=== PATIENT | male | born 1950 | race Caucasian/White ===

== ENCOUNTER 2017-11-13 11:26 | Emergency (ER) | payer MEDICAID, MEDICARE | END 2017-11-13 12:18 | disposition left against medical advice (07) | LOC: JD.ED 11:26 → SUPCPDRO 11:26 → JD.ED 12:18 | DX: Z53.21 Procedure and treatment not carried out due to patient leaving prior to being seen by health care provider (principal) ==

== ENCOUNTER 2018-02-28 09:56 | Inpatient (IN) | payer MEDICAID ==
[2018-02-28] MEDS ORDERED: Sodium Chloride 0.9% 10 ML Syringe FLUSH PRN (10:25)
[2018-02-28] MEDS ORDERED: cefTRIAXone 2 GM in Sodium Chloride 0.9% 100 ML IV ONE (10:26)
--- NOTE | 2018-02-28 11:21 | EDM.PDOC ---
ED HPI GENERAL MEDICAL PROBLEM - General Chief Complaint: Respiratory Problem Stated Complaint: [facility] Time Seen by Provider: 02/28/18 10:22 Source of Information: Reports: Patient History Limitations: Reports: No Limitations - History of Present Illness INITIAL COMMENTS - FREE TEXT/NARRATIVE: The patient presents by [facility] from [facility] in [place] for shortness of breath, cough, low BP and low oxygen saturations. He is on opiods for pain and he says he may have had an issue with it. He says when his sugars are off he is more sensitive to the meds. He said he also had blurred vision. He was given narcan by [place] on the way in. His vision cleared up and he is more responsive. He knows who he is and where he is. He has a cough and rattly lung sounds. He denies fever or chills. He has no headache, chest pain, abdominal pain, nausea or vomiting. Onset: Today Duration: Hour(s): Severity: Moderate Improves with: Reports: None Worsens with: Reports: None Associated Symptoms: Reports: Cough, Shortness of Breath. Denies: Chest Pain, Fever/Chills, Headaches, Nausea/Vomiting - Related Data Allergies Allergy/AdvReac Type Severity Reaction Status Date / Time navane Allergy Excitabilit Uncoded 02/28/18 10:32 y Home Meds: Home Meds Acetaminophen [Tylenol] 650 mg PO Q4H PRN 02/28/18 [History] Albuterol Sulfate 1 applic INH Q6H PRN 02/28/18 [History] Albuterol Sulfate [Proair Respiclick] 2 puff INH Q4H PRN 02/28/18 [History] Aspirin [Halfprin] 81 mg PO DAILY 02/28/18 [History] Carboxymethylcellulose/Lytes [Christiano-Stir Oral [place]] 1 spray INH Q4H PRN 02/28/18 [History] Citalopram Hydrobromide [Celexa] 20 mg PO BEDTIME 02/28/18 [History] Clopidogrel [Plavix] 75 mg PO DAILY 02/28/18 [History] DULoxetine [Cymbalta] 30 mg PO DAILY 02/28/18 [History] Docusate Sodium 100 mg PO BID PRN 02/28/18 [History] Exenatide Microspheres [Bydureon Pen] 2 mg INJECT TH 02/28/18 [History] Furosemide [Lasix] 40 mg PO DAILY 02/28/18 [History] Hydrocodone/Acetaminophen [Hydrocodon-Acetaminophen 5-325] 5 - 325 mg PO BID [History] Insulin Detemir [Levemir] 60 units INJECT BID 02/28/18 [History] Insulin Lispro [Humalog] 0 unit INJECT TID 02/28/18 [History] Insulin Lispro [Humalog] 12 units INJECT BEDTIME 02/28/18 [History] Insulin Lispro [Humalog] 34 units INJECT BID 02/28/18 [History] LORazepam [Ativan] 0.25 mg PO BEDTIME 02/28/18 [History] Multivitamin W/Iron, Minerals [Compete] 1 tab PO DAILY 02/28/18 [History] Nystatin 1 applic TOP BID 02/28/18 [History] Pregabalin [Lyrica] 50 mg PO TID 02/28/18 [History] QUEtiapine [SEROquel] 250 mg PO DAILY 02/28/18 [History] atorvaSTATin Calcium [Lipitor] 20 mg PO BEDTIME 02/28/18 [History] hydrOXYzine pamoate [Hydroxyzine Pamoate] 50 mg PO Q4H PRN 02/28/18 [History] metFORMIN [Glucophage XR] 1,000 mg PO BID 02/28/18 [History] ED ROS GENERAL - Review of Systems Review Of Systems: See Below Constitutional: Reports: No Symptoms HEENT: Reports: No Symptoms Respiratory: Reports: Shortness of Breath, Cough Cardiovascular: Reports: No Symptoms Endocrine: Reports: No Symptoms GI/Abdominal: Reports: No Symptoms : Reports: No Symptoms Musculoskeletal: Reports: No Symptoms ED EXAM, GENERAL - Physical Exam Exam: See Below Exam Limited By: No Limitations General Appearance: Other (Sleepy but he will awake when I talk to him and he follows commands and answers y questions) Ears: Normal External Exam Nose: Normal Inspection Head: Atraumatic, Normocephalic Neck: Normal Inspection Respiratory/Chest: No Respiratory Distress, Decreased Breath Sounds, Rhonchi Cardiovascular: Regular Rate, Rhythm, No Edema, No Murmur GI/Abdominal: Soft, Non-Tender, No Organomegaly, No Mass Rectal (Males) Exam: Normal Rectal Tone, Heme - Stool Extremities: Other (Abrasions to both knees) Neurological: Alert, Oriented, No Motor/Sensory Deficits Course - Vital Signs Last Recorded V/S: Last Vital Signs Temp 98.5 F 02/28/18 09:56 Pulse 80 02/28/18 09:56 Resp 20 02/28/18 09:56 BP 131/35 L 02/28/18 09:56 Pulse Ox 83 L 02/28/18 09:56 - Orders/Labs/Meds Orders: Active Orders 24 hr Category Date Time Status BIPAP Adult [RT BiPAP/CPAP] [RC] ASDIRECTED Care 02/28/18 12:46 Active Oxygen Therapy [RC] PRN Care 02/28/18 10:25 Active Peripheral IV Care [RC] . DIRECTED Care 02/28/18 10:26 Active Chest 1V Frontal [CR] Stat Exams 02/28/18 10:25 Taken CULTURE BLOOD [BC] Stat Lab 02/28/18 11:06 Received CULTURE BLOOD [BC] Stat Lab 02/28/18 11:14 Received PRO B-TYPE NATRIUR PEPT,BNPPRO [CHEM] Stat Lab 02/28/18 12:31 Ordered RED BLOOD CELLS LP [BBK] Stat Lab 02/28/18 11:06 Received TYPE AND SCREEN [BBK] Stat Lab 02/28/18 11:06 Received Sodium Chloride 0.9% [Saline Flush] Med 02/28/18 10:25 Active 10 ml FLUSH ASDIRECTED PRN Blood Culture x2 Reflex Set [OM.PC] Stat Oth 02/28/18 10:26 Ordered Peripheral IV Insertion Adult [OM.PC] Stat Oth 02/28/18 10:25 Ordered Transfuse Red Blood Cells [COMM] Stat Oth 02/28/18 12:01 Ordered Medication Orders Sodium Chloride (Saline Flush) 10 ml FLUSH ASDIRECTED PRN PRN Reason: Keep Vein Open Last Admin: 02/28/18 10:45 Dose: 10 ml Labs: Laboratory Tests 02/28/18 02/28/18 02/28/18 Range/Units 11:06 11:06 12:41 WBC 11.62 H (4.23-9.07) K/mm3 RBC 2.78 L (4.63-6.08) M/mm3 Hgb 7.8 L (13.7-17.5) gm/L Hct 26.7 L (40.1-51.0) % MCV 96.0 H (79.0-92.2) fl MCH 28.1 (25.7-32.2) pg MCHC 29.2 L (32.2-35.5) g/dl RDW Std Deviation 57.6 H (35.1-43.9) fL Plt Count 249 (163-337) K/mm3 MPV 10.2 (9.4-12.3) fl Neut % (Auto) 77.8 H (34.0-67.9) % Lymph % (Auto) 9.6 L (21.8-53.1) % [place] % (Auto) 10.5 (5.3-12.2) % Eos % (Auto) 1.6 (0.8-7.0) Baso % (Auto) 0.2 (0.1-1.2) % Neut # (Auto) 9.04 H (1.78-5.38) K/mm3 Lymph # (Auto) 1.11 L (1.32-3.57) K/mm3 [place] # (Auto) 1.22 H (0.30-0.82) K/mm3 Eos # (Auto) 0.19 (0.04-0.54) K/mm3 Baso # (Auto) 0.02 (0.01-0.08) K/mm3 Manual Slide Review Abnormal smear Puncture Site Rt radial ABG pH 7.34 L (7.35-7.45) ABG pCO2 57.9 H (35.0-45.0) mmHg ABG pO2 74.0 L (80.0-100.0) mmHg ABG HCO3 30.2 H (22.0-26.0) meq/L ABG O2 Saturation 89.3 L (96.0-97.0) % ABG Base Excess 4.2 H (-2-2.0) Dusty Test Positive A-a Gradient 33 mmHg O2 Delivery Device Nasal cannula Oxygen Flow Rate 2.0 FiO2 28.00 (21.00-100.00) % Sodium 138 (136-145) mEq/L Potassium 4.8 (3.5-5.1) mEq/L Chloride 103 (98-107) mEq/L Carbon Dioxide 30 (21-32) mEq/L Anion Gap 9.8 (5-15) BUN 41 H (7-18) mg/dL Creatinine 1.9 H (0.7-1.3) mg/dL Est Cr Clr Drug Dosing 26.68 mL/min Estimated GFR (MDRD) 36 (>60) mL/min BUN/Creatinine Ratio 21.6 H (14-18) Glucose 126 H (80-115) mg/dL Calcium 8.4 L (8.5-10.1) mg/dL Total Bilirubin 0.2 (0.2-1.0) mg/dL AST 18 (15-37) U/L ALT 15 L (16-63) U/L Alkaline Phosphatase 70 (46-116) U/L Total Protein 6.8 (6.4-8.2) g/dl Albumin 1.9 L (3.4-5.0) g/dl Globulin 4.9 gm/dL Albumin/Globulin Ratio 0.4 L (1-2) Meds: Medications Generic Name Dose Route Start Last Admin Trade Name Freq PRN Reason Stop Dose Admin Sodium Chloride 10 ml 02/28/18 10:25 02/28/18 10:45 Saline Flush FLUSH 10 ml ASDIRECTED PRN Administration Keep Vein Open Discontinued Medications Generic Name Dose Route Start Last Admin Trade Name Freq PRN Reason Stop Dose Admin Ceftriaxone Sodium 2 gm/ 100 mls @ 100 mls/hr 02/28/18 10:26 02/28/18 10:46 Sodium Chloride IV 02/28/18 11:25 100 mls/hr ONETIME ONE Administration Naloxone HCl 2 mg 02/28/18 12:30 Narcan IVPUSH 02/28/18 12:31 ONETIME ONE - Re-Assessments/Exams Free Text/Narrative Re-Assessment/Exam: 02/28/18 11:23 I have ordered oxygen, IV saline lock, CXR and labs. His CXR shows cardiomegaly , poor inspiration and infiltrate in the right lower lung. 02/28/18 12:17 His WBC is elevated at 11.62. His Hgb is low at 7.8. I did a rectal exam and it was negative. He has a history of anemia but this is to low. I have ordered a unit of blood. His platelets are normal. His creatinine is elevated at 1.9. His glucose is elevated at 125. 02/28/18 12:57 I feel he needs to be admitted for hypoxia, aspiration pneumonia and anemia. I talked with Dr Guadarrama and she wanted an ABG that showed a pH of 7.34. pCO2 of 57.9. pO2 of 74. I ordered BiPAP. I also ordered more narcan 2mg IV and a BNP. Departure - Departure Time of Disposition: 13:00 Disposition: Admitted As Inpatient 66 Condition: Poor Clinical Impression: Hypoxia, Hypercarbia, Renal insufficiency Aspiration pneumonia Qualifiers: Aspiration pneumonia type: unspecified Laterality: right Lung location: middle lobe of lung Qualified Code(s): J69.0 - Pneumonitis due to inhalation of food and vomit Anemia Qualifiers: Anemia type: other cause Other causes of anemia: other cause, not classified Qualified Code(s): D64.89 - Other specified anemias - Discharge Information Referrals: Josefa Moreno NP [Primary Care Provider] - Forms: ED Department Discharge - My Orders Last 24 Hours: My Active Orders 02/28/18 10:25 Oxygen Therapy [RC] PRN Chest 1V Frontal [CR] Stat Sodium Chloride 0.9% [Saline Flush] 10 ml FLUSH ASDIRECTED PRN Peripheral IV Insertion Adult [OM.PC] Stat 02/28/18 10:26 Peripheral IV Care [RC] . DIRECTED Blood Culture x2 Reflex Set [OM.PC] Stat 02/28/18 11:06 CULTURE BLOOD [BC] Stat RED BLOOD CELLS LP [BBK] Stat TYPE AND SCREEN [BBK] Stat 02/28/18 11:14 CULTURE BLOOD [BC] Stat 02/28/18 12:01 Transfuse Red Blood Cells [COMM] Stat 02/28/18 12:31 PRO B-TYPE NATRIUR PEPT,BNPPRO [CHEM] Stat 02/28/18 12:46 BIPAP Adult [RT BiPAP/CPAP] [RC] ASDIRECTED - Assessment/Plan Last 24 Hours: My Active Orders 02/28/18 10:25 Oxygen Therapy [RC] PRN Chest 1V Frontal [CR] Stat Sodium Chloride 0.9% [Saline Flush] 10 ml FLUSH ASDIRECTED PRN Peripheral IV Insertion Adult [OM.PC] Stat 02/28/18 10:26 Peripheral IV Care [RC] . DIRECTED Blood Culture x2 Reflex Set [OM.PC] Stat 02/28/18 11:06 CULTURE BLOOD [BC] Stat RED BLOOD CELLS LP [BBK] Stat TYPE AND SCREEN [BBK] Stat 02/28/18 11:14 CULTURE BLOOD [BC] Stat 02/28/18 12:01 Transfuse Red Blood Cells [COMM] Stat 02/28/18 12:31 PRO B-TYPE NATRIUR PEPT,BNPPRO [CHEM] Stat 02/28/18 12:46 BIPAP Adult [RT BiPAP/CPAP] [RC] ASDIRECTED
[2018-02-28] MEDS ORDERED: Naloxone 2 MG/2 ML Syringe IVPUSH ONE (12:30)
[2018-02-28] MEDS ORDERED: Sodium Chloride 0.9% 500 ML ONE (13:59)
[2018-02-28] MEDS ORDERED: Docusate Sodium 100 MG Cap PO PRN (17:44)
[2018-02-28] MEDS ORDERED: 50% Dextrose in Water 50 ML Syringe IVPUSH PRN (17:56)
--- NOTE | 2018-02-28 18:05 | PCM.HP ---
H&P History of Present Illness - General Date of Service: 02/28/18 Admit Problem/Dx: Admission Diagnosis/Problem Admission Diagnosis/Problem Hypoxia Source of Information: Provider History Limitations: Reports: Altered Mental Status - History of Present Illness Initial Comments - Free Text/Narative: 67 year old male who resides at [facility] presents with AMS associated with respiratory distress. He had received Narcan 2 mg in the field. ABG documented hypoxia and hypercapnia in the ED. He did not tolerated BiPAP after the additional dose of Narcan, thus he received at total of 3 mg. The circumstances of the narcotics are unknown, RN notes/medical records will be obtained. He may/may not need a substance abuse evaluation. On CXR, there appears to be a RLL infiltrate, aspiration is a strong consideration. However a resp work up will also be pursued. There is a poorly healing wound on his RLE , OM will be check via radiographic studies. He will be admitted to the ICU. Code status, DNR/DNI. Onset of Symptoms: Reports: Unknown/Unsure Symptom Onset Date: 02/28/18 Duration of Symptoms: Reports: Hour(s):, Getting Worse Location: Reports: Generalized Severity: Moderate Improves with: Reports: Medication Worsens with: Reports: Medication Associated Symptoms: Reports: Confusion, Shortness of Breath, Weakness Generalized Pain Score (Numeric/FACES): 5 - Related Data Allergies/Adverse Reactions: Allergies Allergy/AdvReac Type Severity Reaction Status Date / Time desi Allergy Excitabilit Uncoded 02/28/18 10:32 y Home Medications: Home Meds Acetaminophen [Tylenol] 650 mg PO Q4H PRN 02/28/18 [History] Albuterol Sulfate 1 applic INH Q6H PRN 02/28/18 [History] Albuterol Sulfate [Proair Respiclick] 2 puff INH Q4H PRN 02/28/18 [History] Aspirin [Halfprin] 81 mg PO DAILY 02/28/18 [History] Carboxymethylcellulose/Lytes [Christiano-Stir Oral Karval] 1 spray INH Q4H PRN 02/28/18 [History] Citalopram Hydrobromide [Celexa] 20 mg PO BEDTIME 02/28/18 [History] Clopidogrel [Plavix] 75 mg PO DAILY 02/28/18 [History] DULoxetine [Cymbalta] 30 mg PO DAILY 02/28/18 [History] Docusate Sodium 100 mg PO BID PRN 02/28/18 [History] Exenatide Microspheres [Bydureon Pen] 2 mg INJECT TH 02/28/18 [History] Furosemide [Lasix] 40 mg PO DAILY 02/28/18 [History] Hydrocodone/Acetaminophen [Hydrocodon-Acetaminophen 5-325] 5 - 325 mg PO BID [History] Insulin Detemir [Levemir] 60 units INJECT BID 02/28/18 [History] Insulin Lispro [Humalog] 0 unit INJECT TID 02/28/18 [History] Insulin Lispro [Humalog] 12 units INJECT BEDTIME 02/28/18 [History] Insulin Lispro [Humalog] 34 units INJECT BID 02/28/18 [History] LORazepam [Ativan] 0.25 mg PO BEDTIME 02/28/18 [History] Multivitamin W/Iron, Minerals [Compete] 1 tab PO DAILY 02/28/18 [History] Nystatin 1 applic TOP BID 02/28/18 [History] Pregabalin [Lyrica] 50 mg PO TID 02/28/18 [History] QUEtiapine [SEROquel] 250 mg PO DAILY 02/28/18 [History] atorvaSTATin Calcium [Lipitor] 20 mg PO BEDTIME 02/28/18 [History] hydrOXYzine pamoate [Hydroxyzine Pamoate] 50 mg PO Q4H PRN 02/28/18 [History] metFORMIN [Glucophage XR] 1,000 mg PO BID 02/28/18 [History] Past Medical History HEENT History: Reports: Impaired Vision Other HEENT History: wears eyeglasses. Dryness of nostrils. Cardiovascular History: Reports: CAD, High Cholesterol, Hypertension, Other ( See Below) Other Cardiovascular History: atherosclerotic heart disease. Unspecified peripheral edema. Respiratory History: Reports: COPD, SOB Gastrointestinal History: Reports: Chronic Constipation, GERD Genitourinary History: Reports: BPH Musculoskeletal History: Reports: Osteoarthritis, Other (See Below) Other Musculoskeletal History: diabetic open wounds. Peripheral neuropathy. Neurological History: Reports: Neuropathy, Diabetic, Neuropathy, Peripheral, TIA Other Neuro History: cerebral infarction without residual deficits. Psychiatric History: Reports: Addiction, Anxiety, Bipolar, Schizophrenia Other Psychiatric History: alcohol dependence, in remission. Cannabis dependence, in remission, nicotine dependence. Endocrine/Metabolic History: Reports: Diabetes, Type II, IDDM, Obesity/BMI 30+ Hematologic History: Reports: Anemia Dermatologic History: Reports: Other (See Below) Other Dermatologic History: diabetic ulcers. - Infectious Disease History Infectious Disease History: Reports: MRSA, Shingles Social & Family History - Tobacco Use Smoking Status *Q: Former Smoker Used Tobacco, but Quit: No - Caffeine Use Caffeine Use: Reports: None - Recreational Drug Use Recreational Drug Use: No H&P Review of Systems - Review of Systems: Review Of Systems: See Below General: Reports: Weakness HEENT: Reports: No Symptoms Pulmonary: Reports: Shortness of Breath Cardiovascular: Reports: No Symptoms Gastrointestinal: Reports: No Symptoms Genitourinary: Reports: No Symptoms Musculoskeletal: Reports: Joint Pain Skin: Reports: No Symptoms Psychiatric: Reports: Confusion Neurological: Reports: No Symptoms Hematologic/Lymphatic: Reports: No Symptoms Immunologic: Reports: No Symptoms Exam - Exam Exam: See Below - Vital Signs Vital Signs: Last Vital Signs Temp 36.6 C 02/28/18 17:54 Pulse 77 02/28/18 17:54 Resp 18 02/28/18 17:54 BP 143/71 H 02/28/18 17:54 Pulse Ox 94 L 02/28/18 17:54 Weight: 138.572 kg - Exam Quality Assessment: Supplemental Oxygen, DVT Prophylaxis General: Lethargic HEENT: EOMI, Nares Patent, Normal Nasal Septum, Pupils Equal, Pupils Reactive, PERRLA Neck: Trachea Midline Lungs: Normal Respiratory Effort, Decreased Breath Sounds, Rhonchi, Wheezing Cardiovascular: Regular Rate, Regular Rhythm, Other (distant heart sounds) GI/Abdominal Exam: Normal Bowel Sounds, Soft, Non-Tender, No Organomegaly, No Distention (Male) Exam: Deferred Rectal (Males) Exam: Deferred Back Exam: Normal Inspection Extremities: Slow Capillary Refill Skin: Warm Neurological: Cranial Nerves Intact Neuro Extensive - Motor, Sensory, Reflexes: CN II-XII Intact - Patient Data Lab Results Last 24 hrs: Laboratory Results - last 24 hr 02/28/18 02/28/18 02/28/18 Range/Units 11:06 11:06 11:06 WBC 11.62 H (4.23-9.07) K/mm3 RBC 2.78 L (4.63-6.08) M/mm3 Hgb 7.8 L (13.7-17.5) gm/L Hct 26.7 L (40.1-51.0) % MCV 96.0 H (79.0-92.2) fl MCH 28.1 (25.7-32.2) pg MCHC 29.2 L (32.2-35.5) g/dl RDW Std Deviation 57.6 H (35.1-43.9) fL Plt Count 249 (163-337) K/mm3 MPV 10.2 (9.4-12.3) fl Neut % (Auto) 77.8 H (34.0-67.9) % Lymph % (Auto) 9.6 L (21.8-53.1) % [place] % (Auto) 10.5 (5.3-12.2) % Eos % (Auto) 1.6 (0.8-7.0) Baso % (Auto) 0.2 (0.1-1.2) % Neut # (Auto) 9.04 H (1.78-5.38) K/mm3 Lymph # (Auto) 1.11 L (1.32-3.57) K/mm3 [place] # (Auto) 1.22 H (0.30-0.82) K/mm3 Eos # (Auto) 0.19 (0.04-0.54) K/mm3 Baso # (Auto) 0.02 (0.01-0.08) K/mm3 Manual Slide Review Abnormal smear Puncture Site ABG pH (7.35-7.45) ABG pCO2 (35.0-45.0) mmHg ABG pO2 (80.0-100.0) mmHg ABG HCO3 (22.0-26.0) meq/L ABG O2 Saturation (96.0-97.0) % ABG Base Excess (-2-2.0) Dusty Test A-a Gradient mmHg O2 Delivery Device Oxygen Flow Rate FiO2 (21.00-100.00) % Sodium 138 (136-145) mEq/L Potassium 4.8 (3.5-5.1) mEq/L Chloride 103 (98-107) mEq/L Carbon Dioxide 30 (21-32) mEq/L Anion Gap 9.8 (5-15) BUN 41 H (7-18) mg/dL Creatinine 1.9 H (0.7-1.3) mg/dL Est Cr Clr Drug Dosing 26.68 mL/min Estimated GFR (MDRD) 36 (>60) mL/min BUN/Creatinine Ratio 21.6 H (14-18) Glucose 126 H (80-115) mg/dL Calcium 8.4 L (8.5-10.1) mg/dL Total Bilirubin 0.2 (0.2-1.0) mg/dL AST 18 (15-37) U/L ALT 15 L (16-63) U/L Alkaline Phosphatase 70 (46-116) U/L NT-Pro-B Natriuret Pep (0-125) pg/mL Total Protein 6.8 (6.4-8.2) g/dl Albumin 1.9 L (3.4-5.0) g/dl Globulin 4.9 gm/dL Albumin/Globulin Ratio 0.4 L (1-2) Blood Type AB POSITIVE Gel Antibody Screen Negative Crossmatch See Detail 02/28/18 02/28/18 Range/Units 11:06 12:41 WBC (4.23-9.07) K/mm3 RBC (4.63-6.08) M/mm3 Hgb (13.7-17.5) gm/L Hct (40.1-51.0) % MCV (79.0-92.2) fl MCH (25.7-32.2) pg MCHC (32.2-35.5) g/dl RDW Std Deviation (35.1-43.9) fL Plt Count (163-337) K/mm3 MPV (9.4-12.3) fl Neut % (Auto) (34.0-67.9) % Lymph % (Auto) (21.8-53.1) % [place] % (Auto) (5.3-12.2) % Eos % (Auto) (0.8-7.0) Baso % (Auto) (0.1-1.2) % Neut # (Auto) (1.78-5.38) K/mm3 Lymph # (Auto) (1.32-3.57) K/mm3 [place] # (Auto) (0.30-0.82) K/mm3 Eos # (Auto) (0.04-0.54) K/mm3 Baso # (Auto) (0.01-0.08) K/mm3 Manual Slide Review Puncture Site Rt radial ABG pH 7.34 L (7.35-7.45) ABG pCO2 57.9 H (35.0-45.0) mmHg ABG pO2 74.0 L (80.0-100.0) mmHg ABG HCO3 30.2 H (22.0-26.0) meq/L ABG O2 Saturation 89.3 L (96.0-97.0) % ABG Base Excess 4.2 H (-2-2.0) Dusty Test Positive A-a Gradient 33 mmHg O2 Delivery Device Nasal cannula Oxygen Flow Rate 2.0 FiO2 28.00 (21.00-100.00) % Sodium (136-145) mEq/L Potassium (3.5-5.1) mEq/L Chloride (98-107) mEq/L Carbon Dioxide (21-32) mEq/L Anion Gap (5-15) BUN (7-18) mg/dL Creatinine (0.7-1.3) mg/dL Est Cr Clr Drug Dosing mL/min Estimated GFR (MDRD) (>60) mL/min BUN/Creatinine Ratio (14-18) Glucose (80-115) mg/dL Calcium (8.5-10.1) mg/dL Total Bilirubin (0.2-1.0) mg/dL AST (15-37) U/L ALT (16-63) U/L Alkaline Phosphatase (46-116) U/L NT-Pro-B Natriuret Pep 3133 H (0-125) pg/mL Total Protein (6.4-8.2) g/dl Albumin (3.4-5.0) g/dl Globulin gm/dL Albumin/Globulin Ratio (1-2) Blood Type Gel Antibody Screen Crossmatch Result Diagrams: 03/01/18 05:47 03/01/18 05:47 - Problem List (1) Morbid (severe) obesity due to excess calories SNOMED Code(s): 612019942 ICD Code: E66.01 - MORBID (SEVERE) OBESITY DUE TO EXCESS CALORIES Status: Chronic Current Visit: Yes (2) Diabetes mellitus SNOMED Code(s): 95981730 ICD Code: E11.9 - TYPE 2 DIABETES MELLITUS WITHOUT COMPLICATIONS Status: Chronic Current Visit: Yes (3) Narcotic overdose SNOMED Code(s): 639536507 ICD Code: T40.601A - POISONING BY UNSP NARCOTICS, ACCIDENTAL, INIT Status: Acute Current Visit: Yes (4) Anemia SNOMED Code(s): 044572557 ICD Code: D64.9 - ANEMIA, UNSPECIFIED Status: Acute Current Visit: Yes Qualifiers: Anemia type: other cause Other causes of anemia: other cause, not classified Qualified Code(s): D64.89 - Other specified anemias (5) Aspiration pneumonia SNOMED Code(s): 774638662 ICD Code: J69.0 - PNEUMONITIS DUE TO INHALATION OF FOOD AND VOMIT Status: Acute Current Visit: Yes Qualifiers: Aspiration pneumonia type: unspecified Laterality: right Lung location: middle lobe of lung Qualified Code(s): J69.0 - Pneumonitis due to inhalation of food and vomit (6) Hypercarbia SNOMED Code(s): 15486980 ICD Code: R06.89 - OTHER ABNORMALITIES OF BREATHING Status: Acute Current Visit: Yes (7) Hypoxia SNOMED Code(s): 619611104 ICD Code: R09.02 - HYPOXEMIA Status: Acute Current Visit: Yes (8) Renal insufficiency SNOMED Code(s): 799903486, 184932455 ICD Code: N28.9 - DISORDER OF KIDNEY AND URETER, UNSPECIFIED Status: Acute Current Visit: Yes Problem List Initiated/Reviewed/Updated: Yes Orders Last 24hrs: Active Orders 24 hr Category Date Time Status Patient Status [ADT] Routine ADT 02/28/18 13:58 Active Accu Check [Blood Glucose Check, Bedside] [RC] Care 02/28/18 17:56 Ordered QIDACANDBED BIPAP Adult [RT BiPAP/CPAP] [RC] ASDIRECTED Care 02/28/18 12:46 Active Oxygen Therapy [RC] PRN Care 02/28/18 10:25 Active Consult to Occupational Therapy [OT Evaluation and Cons 03/01/18 10:00 Ordered Treatment] [CONS] Routine Consult to Physical Therapy [PT Evaluation and Cons 03/01/18 09:00 Ordered Treatment] [CONS] Routine ADA Diabetic [[place] [employer] Diet] [DIET Diet 03/01/18 Breakfast Ordered ] CXR [Chest 1V Frontal] [CR] DAILY Exams 03/01/18 08:00 Ordered CXR [Chest 1V Frontal] [CR] DAILY Exams 03/02/18 08:00 Ordered CXR [Chest 1V Frontal] [CR] DAILY Exams 03/03/18 08:00 Ordered Chest 1V Frontal [CR] Stat Exams 02/28/18 10:25 Taken Forearm 2V Lt [CR] Routine Exams 02/28/18 14:49 Taken BMP [BASIC METABOLIC PANEL,BMP] [CHEM] DAILY Lab 03/01/18 05:00 Ordered BMP [BASIC METABOLIC PANEL,BMP] [CHEM] DAILY Lab 03/02/18 05:00 Ordered BMP [BASIC METABOLIC PANEL,BMP] [CHEM] DAILY Lab 03/03/18 05:00 Ordered BMP [BASIC METABOLIC PANEL,BMP] [CHEM] DAILY Lab 03/04/18 05:00 Ordered CBC W/O DIFF,HEMOGRAM [HEME] MOTH@0700 Lab 03/01/18 07:00 Ordered CBC W/O DIFF,HEMOGRAM [HEME] MOTH@0700 Lab 03/04/18 07:00 Ordered CBC W/O DIFF,HEMOGRAM [HEME] MOTH@0700 Lab 03/08/18 07:00 Ordered CBC W/O DIFF,HEMOGRAM [HEME] MOTH@0700 Lab 03/11/18 07:00 Ordered CBC W/O DIFF,HEMOGRAM [HEME] MOTH@0700 Lab 03/15/18 07:00 Ordered CBC W/O DIFF,HEMOGRAM [HEME] MOTH@0700 Lab 03/18/18 07:00 Ordered CBC WITH AUTO DIFF [HEME] DAILY Lab 03/01/18 05:00 Ordered CBC WITH AUTO DIFF [HEME] DAILY Lab 03/02/18 05:00 Ordered CBC WITH AUTO DIFF [HEME] DAILY Lab 03/03/18 05:00 Ordered CBC WITH AUTO DIFF [HEME] DAILY Lab 03/04/18 05:00 Ordered CRP [C-REACTIVE PROTEIN] [CHEM] DAILY Lab 03/01/18 05:00 Ordered CRP [C-REACTIVE PROTEIN] [CHEM] DAILY Lab 03/02/18 05:00 Ordered CRP [C-REACTIVE PROTEIN] [CHEM] DAILY Lab 03/03/18 05:00 Ordered CRP [C-REACTIVE PROTEIN] [CHEM] DAILY Lab 03/04/18 05:00 Ordered CULTURE BLOOD [BC] Stat Lab 02/28/18 11:06 Received CULTURE BLOOD [BC] Stat Lab 02/28/18 11:14 Received GLYCOSYLATED HEMOGLOBIN,HGBA1C [CHEM] Routine Lab 03/01/18 05:00 Ordered LACTIC ACID [CHEM] DAILY Lab 03/01/18 05:00 Ordered LACTIC ACID [CHEM] DAILY Lab 03/02/18 05:00 Ordered LACTIC ACID [CHEM] DAILY Lab 03/03/18 05:00 Ordered LACTIC ACID [CHEM] DAILY Lab 03/04/18 05:00 Ordered LIPID PANEL [CHEM] Routine Lab 03/01/18 05:00 Ordered MAGNESIUM [CHEM] DAILY Lab 03/01/18 05:00 Ordered MAGNESIUM [CHEM] DAILY Lab 03/02/18 05:00 Ordered MAGNESIUM [CHEM] DAILY Lab 03/03/18 05:00 Ordered MAGNESIUM [CHEM] DAILY Lab 03/04/18 05:00 Ordered MYCOPLASMA PNEUMONIAE IGM AB [CHEM] Routine Lab 03/01/18 05:00 Ordered PRO B-TYPE NATRIUR PEPT,BNPPRO [CHEM] DAILY Lab 03/01/18 05:00 Ordered PRO B-TYPE NATRIUR PEPT,BNPPRO [CHEM] DAILY Lab 03/02/18 05:00 Ordered RESPIRATORY PANEL Routine Lab 02/28/18 18:00 Ordered Acetaminophen [Tylenol] Med 02/28/18 17:44 Ordered 650 mg PO Q4H PRN Aspirin [Halfprin] Med 03/01/18 09:00 Ordered 81 mg PO DAILY Citalopram Hydrobromide [Celexa] Med 02/28/18 21:00 Ordered 20 mg PO BEDTIME Clindamycin Phosphate [Cleocin] 900 mg Med 02/28/18 18:00 Ordered Sodium Chloride 0.9% [Normal Saline] 100 ml IV Q6H Clopidogrel [Plavix] Med 03/01/18 09:00 Ordered 75 mg PO DAILY DULoxetine [Cymbalta] Med 03/01/18 09:00 Ordered 30 mg PO DAILY Dextrose 50% in Water Med 02/28/18 17:56 Ordered 50 ml IVPUSH ASDIRECTED PRN Docusate Sodium [Colace] Med 02/28/18 17:44 Ordered 100 mg PO BID PRN Heparin Sodium Med 02/28/18 18:00 Ordered 5,000 units SUBCUT Q8H Insulin Detemir Med 02/28/18 21:00 Ordered 15 units INJECT BID Insulin Lispro [HumaLOG] Med 02/28/18 22:00 Ordered See Protocol SUBCUT QIDACANDBED LORazepam [Ativan] Med 02/28/18 21:00 Ordered 0.25 mg PO BEDTIME Nystatin [Nystatin Crm] Med 02/28/18 21:00 Ordered 1 applic TOP BID Pregabalin Med 02/28/18 21:00 Ordered 50 mg PO TID QUEtiapine [SEROquel] Med 03/01/18 09:00 Ordered 250 mg PO DAILY Sodium Chloride 0.9% [Saline Flush] Med 02/28/18 10:25 Active 10 ml FLUSH ASDIRECTED PRN atorvaSTATin Calcium Med 02/28/18 21:00 Ordered 20 mg PO BEDTIME metFORMIN Med 02/28/18 21:00 Ordered 1,000 mg PO BID Blood Culture x2 Reflex Set [OM.PC] Stat Ot 02/28/18 10:26 Ordered Isolation [COMM] Routine Ot 02/28/18 17:59 Ordered Peripheral IV Insertion Adult [OM.PC] Stat Ot 02/28/18 10:25 Ordered Transfuse Red Blood Cells [COMM] Stat Ot 02/28/18 12:01 Ordered Medication Orders Acetaminophen (Tylenol) 650 mg PO Q4H PRN PRN Reason: Pain/Fever Aspirin (Halfprin) 81 mg PO DAILY [facility] Clopidogrel Bisulfate (Plavix) 75 mg PO DAILY [facility] Dextrose/Water (Dextrose 50% In Water) 50 ml IVPUSH ASDIRECTED PRN PRN Reason: Hypoglycemia Docusate Sodium (Colace) 100 mg PO BID PRN PRN Reason: Constipation Duloxetine HCl (Cymbalta) 30 mg PO DAILY [facility] Heparin Sodium (Porcine) (Heparin Sodium) 5,000 units SUBCUT Q8H [facility] Clindamycin Phosphate 900 mg/ (Sodium Chloride) 106 mls @ 100 mls/hr IV Q6H [facility] Insulin Human Lispro (Humalog) 0 unit SUBCUT QIDACANDBED MAKAYLA; Protocol Lorazepam (Ativan) 0.25 mg PO BEDTIME [facility] Non-Formulary Medication (Atorvastatin Calcium) 20 mg PO BEDTIME [facility] Non-Formulary Medication (Citalopram Hydrobromide [Celexa]) 20 mg PO BEDTIME [facility] Non-Formulary Medication (Insulin Detemir) 15 units INJECT BID [facility] Non-Formulary Medication (Metformin) 1,000 mg PO BID [facility] Non-Formulary Medication (Pregabalin) 50 mg PO TID [facility] Nystatin (Nystatin Crm) gm TOP BID [facility] Quetiapine Fumarate (Seroquel) 250 mg PO DAILY [facility] Sodium Chloride (Saline Flush) 10 ml FLUSH ASDIRECTED PRN PRN Reason: Keep Vein Open Last Admin: 02/28/18 10:45 Dose: 10 ml Assessment/Plan Comment:: Impression: Aspiration PNA, query HCAP Narcotic overdose, s/p Narcan 3 mg; query iatrogenic Acute respiratory distress, resolved Query JANY Morbid obesity Acute/chronic wounds, assessment of R foot re:OM Expand ATB coverage as needed Anemia, s/p 1 unit PRBCs Acute on chronic kidney failure Clarify mental health (query anxiety/depression/bipolar disorder) Plan: ICU IV ATBs for aspiration; pulmonary toilet Keep O2 sat > 92% Consider MRI re: right heel, chronic infection; Wound for Gm stain/Cx IVF as needed PRBCs, keep Hgb>9.0 Lasix after second PRBCs Wound care consult, PT Adjust Insulin for ADA 1800 patricia Accurate I/Os Home meds Daily Labs DVT/GI prophylaxis Consider Psych consult to simplify medication Consult PT/OT/CM Disposition 96 hours, return to SNF
[2018-02-28] MEDS: Clindamycin Phosphate 900 MG in Sodium Chloride 0.9% 100 ML IV SCH ×2 (18:33→23:28)
[2018-02-28] MEDS: Heparin Sodium 5,000 Units/ML Vial SUBCUT SCH ×2 (18:43→18:52)
[2018-02-28] MEDS ORDERED: Sodium Chloride 0.9% 100 ML IV SCH (20:45)
[2018-02-28] MEDS ORDERED: Sodium Chloride 0.9% 100 ML ONE (20:49)
[2018-02-28] MEDS: metFORMIN 500 MG Tab PO SCH (21:02)
[2018-02-28] MEDS: Citalopram 20 MG Tab PO SCH (21:02)
[2018-02-28] MEDS: LORazepam 0.5 MG Tab PO SCH (21:02)
[2018-02-28] MEDS: Pregabalin 25 MG Cap PO SCH (21:02)
[2018-02-28] MEDS: Simvastatin 20 MG Tab PO SCH (21:02)
[2018-02-28] MEDS: Nystatin Crm 30 GM Tube TOP SCH (21:03)
[2018-02-28] MEDS: Insulin Glargine,Human Rec. Analog 100 Units/ML 3 ML Pen SUBCUT SCH (21:03)
[2018-02-28] MEDS: Insulin Lispro 100 Unit/ML 3 ML KwikPen SUBCUT SCH (21:07)
[2018-02-28] MEDS ORDERED: Furosemide 40 MG/4 ML VIAL IVPUSH ONE (21:30)
[2018-02-28] MEDS: Acetaminophen 325 MG Tab PO PRN (23:12)
[2018-03-01] MEDS: Heparin Sodium 5,000 Units/ML Vial SUBCUT SCH ×3 (03:31→17:03)
[2018-03-01] MEDS: Insulin Lispro 100 Unit/ML 3 ML KwikPen SUBCUT SCH ×4 (06:02→21:37)
[2018-03-01] MEDS: Clindamycin Phosphate 900 MG in Sodium Chloride 0.9% 100 ML IV SCH ×3 (06:19→17:09)
--- NOTE | 2018-03-01 07:13 | CR ---
Chest: Frontal view of the chest was obtained. Comparison: No prior chest x-ray. Increased density is noted within the right mid and lower lung. Left lung is clear. Heart size at the upper limits of normal. Upper mediastinum is normal. Bony structures are grossly intact. Impression: 1. Increased density within right mid and lower lung. Findings may represent pneumonia if patient has correlating symptoms. Diagnostic code #3
--- NOTE | 2018-03-01 07:13 | CR ---
Left forearm: Two views of the left forearm were obtained. Comparison: No previous study. Soft tissue swelling is noted. Mild deformity is seen of the distal ulna compatible with old healed fracture. No acute bony abnormality is seen. Impression: 1. Soft tissue swelling. 2. No acute bony abnormality is seen. Diagnostic code #2
--- NOTE | 2018-03-01 08:51 | CR ---
Chest: Portable view of the chest was obtained. Comparison: Prior chest x-ray of 02/28/18. Heart size and mediastinum are within normal limits for portable technique. Increased density is seen within the right mid and lower lung which appears fairly stable from prior exam. Left lung remains clear. Bony structures are grossly intact. Impression: 1. Continuing increased density within the right mid to lower lung most likely due to pneumonia as previously suggested. 2. Other portions of the portable chest x-ray appear within normal limits. Diagnostic code #3
--- NOTE | 2018-03-01 08:51 | CR ---
Right foot: Three views of the right foot were obtained. Comparison: No previous study. Bony structures are osteopenic. Mild degenerative change is scattered within the midfoot. No acute fracture or dislocation is seen. No definite focal erosion is seen. Impression: 1. Findings as noted above. No definite acute bony abnormality is identified. Diagnostic code #2
[2018-03-01] MEDS: Aspirin 81 MG Tab.EC PO SCH (10:06)
[2018-03-01] MEDS: Pregabalin 25 MG Cap PO SCH ×3 (10:06→20:17)
[2018-03-01] MEDS: Saccharomyces Boulardii (Probiotic) 250 MG Cap PO SCH (10:06)
[2018-03-01] MEDS: QUEtiapine 100 MG Tab PO SCH (10:06)
[2018-03-01] MEDS: DULoxetine 30 MG Cap PO SCH (10:06)
[2018-03-01] MEDS: Nystatin Crm 30 GM Tube TOP SCH ×2 (10:07→21:00)
[2018-03-01] MEDS: Clopidogrel 75 MG Tab PO SCH (10:07)
[2018-03-01] MEDS: metFORMIN 500 MG Tab PO SCH ×2 (10:07→20:17)
[2018-03-01] MEDS: Insulin Glargine,Human Rec. Analog 100 Units/ML 3 ML Pen SUBCUT SCH ×2 (10:08→20:22)
[2018-03-01] MEDS: Gabapentin 300 MG Cap PO SCH ×2 (12:47→20:18)
--- NOTE | 2018-03-01 15:51 | PCM.PN ---
<Rosemary Hsu - Last Filed: 03/01/18 17:00> - General Info Date of Service: 03/01/18 Admission Dx/Problem (Free Text): Admission Diagnosis/Problem Admission Diagnosis/Problem Hypoxia Subjective Update: Patient reports continued cough and shortness of breath. He reports pain in his left knee, left hip, and left shoulder. - Review of Systems General: Reports: Fever, Weakness, Chills HEENT: Reports: Headaches, Visual Changes. Denies: Dysphasia, Ear Pain Pulmonary: Reports: Shortness of Breath, Cough. Denies: Pleuritic Chest Pain, Sputum, Hemoptysis Cardiovascular: Reports: Dyspnea on Exertion. Denies: Chest Pain, Palpitations , Edema, Lightheadedness Gastrointestinal: Reports: Constipation. Denies: Abdominal Pain, Diarrhea, Nausea, Vomiting Genitourinary: Reports: No Symptoms Musculoskeletal: Reports: Shoulder Pain (Left; chronic), Back Pain (Chronic), Leg Pain (Left knee and hip pain; chronic) Skin: Reports: Other (Lesion to left foot not healing well) Neurological: Reports: Numbness (Diabetic neuropathy in hands and feet). Denies : Confusion, Dizziness, Change in Speech Psychiatric: Reports: Other (Complex history of addiction, depression, anxiety, bipolar disorder) - Patient Data Vitals - Most Recent: Last Vital Signs Temp 97.3 F 03/01/18 12:00 Pulse 73 03/01/18 08:00 Resp 18 03/01/18 12:00 BP 140/68 03/01/18 12:00 Pulse Ox 96 03/01/18 12:00 Weight - Most Recent: 139.071 kg I&O - Last 24 Hours: Intake & Output 03/01/18 03/01/18 03/01/18 06:59 14:59 22:59 Intake Total 1250 600 Output Total 900 Balance 350 600 Lab Results Last 24 Hours: Laboratory Results - last 24 hr 02/28/18 02/28/18 02/28/18 Range/Units 11:06 18:24 18:40 WBC (4.23-9.07) K/mm3 RBC (4.63-6.08) M/mm3 Hgb (13.7-17.5) gm/L Hct (40.1-51.0) % MCV (79.0-92.2) fl MCH (25.7-32.2) pg MCHC (32.2-35.5) g/dl RDW Std Deviation (35.1-43.9) fL Plt Count (163-337) K/mm3 MPV (9.4-12.3) fl Neut % (Auto) (34.0-67.9) % Lymph % (Auto) (21.8-53.1) % [place] % (Auto) (5.3-12.2) % Eos % (Auto) (0.8-7.0) Baso % (Auto) (0.1-1.2) % Neut # (Auto) (1.78-5.38) K/mm3 Lymph # (Auto) (1.32-3.57) K/mm3 [place] # (Auto) (0.30-0.82) K/mm3 Eos # (Auto) (0.04-0.54) K/mm3 Baso # (Auto) (0.01-0.08) K/mm3 Manual Slide Review Sodium (136-145) mEq/L Potassium (3.5-5.1) mEq/L Chloride (98-107) mEq/L Carbon Dioxide (21-32) mEq/L Anion Gap (5-15) BUN (7-18) mg/dL Creatinine (0.7-1.3) mg/dL Est Cr Clr Drug Dosing mL/min Estimated GFR (MDRD) (>60) mL/min BUN/Creatinine Ratio (14-18) Glucose (80-115) mg/dL POC Glucose 52 L 78 L (80-115) mg/dL Hemoglobin A1c (4.50-6.20) % Lactic Acid (0.4-2.0) mmol/L Calcium (8.5-10.1) mg/dL Magnesium (1.8-2.4) mg/dl C-Reactive Protein (<1.0) mg/dL NT-Pro-B Natriuret Pep (0-125) pg/mL Triglycerides (<150) mg/dL Cholesterol (<200) mg/dL LDL Cholesterol Direct (<100) mg/dL HDL Cholesterol (40-59) mg/dL Mycoplasma pneumon IgM (NEGATIVE) Blood Type AB POSITIVE Gel Antibody Screen Negative Crossmatch See Detail 02/28/18 03/01/18 03/01/18 Range/Units 21:00 05:47 05:47 WBC 9.20 H (4.23-9.07) K/mm3 RBC 3.77 L (4.63-6.08) M/mm3 Hgb 10.7 L (13.7-17.5) gm/L Hct 35.5 L (40.1-51.0) % MCV 94.2 H (79.0-92.2) fl MCH 28.4 (25.7-32.2) pg MCHC 30.1 L (32.2-35.5) g/dl RDW Std Deviation 59.1 H (35.1-43.9) fL Plt Count 209 (163-337) K/mm3 MPV 10.4 (9.4-12.3) fl Neut % (Auto) 72.7 H (34.0-67.9) % Lymph % (Auto) 10.3 L (21.8-53.1) % [place] % (Auto) 13.8 H (5.3-12.2) % Eos % (Auto) 2.9 (0.8-7.0) Baso % (Auto) 0.1 (0.1-1.2) % Neut # (Auto) 6.68 H (1.78-5.38) K/mm3 Lymph # (Auto) 0.95 L (1.32-3.57) K/mm3 [place] # (Auto) 1.27 H (0.30-0.82) K/mm3 Eos # (Auto) 0.27 (0.04-0.54) K/mm3 Baso # (Auto) 0.01 (0.01-0.08) K/mm3 Manual Slide Review Not Reportable Sodium 139 (136-145) mEq/L Potassium 5.0 (3.5-5.1) mEq/L Chloride 104 (98-107) mEq/L Carbon Dioxide 30 (21-32) mEq/L Anion Gap 10.0 (5-15) BUN 41 H (7-18) mg/dL Creatinine 1.7 H (0.7-1.3) mg/dL Est Cr Clr Drug Dosing 29.82 mL/min Estimated GFR (MDRD) 40 (>60) mL/min BUN/Creatinine Ratio 24.1 H (14-18) Glucose 78 L (80-115) mg/dL POC Glucose 146 H (80-115) mg/dL Hemoglobin A1c (4.50-6.20) % Lactic Acid (0.4-2.0) mmol/L Calcium 8.7 (8.5-10.1) mg/dL Magnesium 2.4 (1.8-2.4) mg/dl C-Reactive Protein 21.6 H* (<1.0) mg/dL NT-Pro-B Natriuret Pep (0-125) pg/mL Triglycerides 115 (<150) mg/dL Cholesterol 114 (<200) mg/dL LDL Cholesterol Direct 49 (<100) mg/dL HDL Cholesterol 51.0 (40-59) mg/dL Mycoplasma pneumon IgM Negative (NEGATIVE) Blood Type Gel Antibody Screen Crossmatch 03/01/18 03/01/18 03/01/18 Range/Units 05:47 05:47 05:47 WBC (4.23-9.07) K/mm3 RBC (4.63-6.08) M/mm3 Hgb (13.7-17.5) gm/L Hct (40.1-51.0) % MCV (79.0-92.2) fl MCH (25.7-32.2) pg MCHC (32.2-35.5) g/dl RDW Std Deviation (35.1-43.9) fL Plt Count (163-337) K/mm3 MPV (9.4-12.3) fl Neut % (Auto) (34.0-67.9) % Lymph % (Auto) (21.8-53.1) % [place] % (Auto) (5.3-12.2) % Eos % (Auto) (0.8-7.0) Baso % (Auto) (0.1-1.2) % Neut # (Auto) (1.78-5.38) K/mm3 Lymph # (Auto) (1.32-3.57) K/mm3 [place] # (Auto) (0.30-0.82) K/mm3 Eos # (Auto) (0.04-0.54) K/mm3 Baso # (Auto) (0.01-0.08) K/mm3 Manual Slide Review Sodium (136-145) mEq/L Potassium (3.5-5.1) mEq/L Chloride (98-107) mEq/L Carbon Dioxide (21-32) mEq/L Anion Gap (5-15) BUN (7-18) mg/dL Creatinine (0.7-1.3) mg/dL Est Cr Clr Drug Dosing mL/min Estimated GFR (MDRD) (>60) mL/min BUN/Creatinine Ratio (14-18) Glucose (80-115) mg/dL POC Glucose (80-115) mg/dL Hemoglobin A1c 7.60 H (4.50-6.20) % Lactic Acid 0.9 (0.4-2.0) mmol/L Calcium (8.5-10.1) mg/dL Magnesium (1.8-2.4) mg/dl C-Reactive Protein (<1.0) mg/dL NT-Pro-B Natriuret Pep 1456 H (0-125) pg/mL Triglycerides (<150) mg/dL Cholesterol (<200) mg/dL LDL Cholesterol Direct (<100) mg/dL HDL Cholesterol (40-59) mg/dL Mycoplasma pneumon IgM (NEGATIVE) Blood Type Gel Antibody Screen Crossmatch 03/01/18 03/01/18 Range/Units 05:58 12:15 WBC (4.23-9.07) K/mm3 RBC (4.63-6.08) M/mm3 Hgb (13.7-17.5) gm/L Hct (40.1-51.0) % MCV (79.0-92.2) fl MCH (25.7-32.2) pg MCHC (32.2-35.5) g/dl RDW Std Deviation (35.1-43.9) fL Plt Count (163-337) K/mm3 MPV (9.4-12.3) fl Neut % (Auto) (34.0-67.9) % Lymph % (Auto) (21.8-53.1) % [place] % (Auto) (5.3-12.2) % Eos % (Auto) (0.8-7.0) Baso % (Auto) (0.1-1.2) % Neut # (Auto) (1.78-5.38) K/mm3 Lymph # (Auto) (1.32-3.57) K/mm3 [place] # (Auto) (0.30-0.82) K/mm3 Eos # (Auto) (0.04-0.54) K/mm3 Baso # (Auto) (0.01-0.08) K/mm3 Manual Slide Review Sodium (136-145) mEq/L Potassium (3.5-5.1) mEq/L Chloride (98-107) mEq/L Carbon Dioxide (21-32) mEq/L Anion Gap (5-15) BUN (7-18) mg/dL Creatinine (0.7-1.3) mg/dL Est Cr Clr Drug Dosing mL/min Estimated GFR (MDRD) (>60) mL/min BUN/Creatinine Ratio (14-18) Glucose (80-115) mg/dL POC Glucose 79 L 149 H (80-115) mg/dL Hemoglobin A1c (4.50-6.20) % Lactic Acid (0.4-2.0) mmol/L Calcium (8.5-10.1) mg/dL Magnesium (1.8-2.4) mg/dl C-Reactive Protein (<1.0) mg/dL NT-Pro-B Natriuret Pep (0-125) pg/mL Triglycerides (<150) mg/dL Cholesterol (<200) mg/dL LDL Cholesterol Direct (<100) mg/dL HDL Cholesterol (40-59) mg/dL Mycoplasma pneumon IgM (NEGATIVE) Blood Type Gel Antibody Screen Crossmatch Jr Results Last 24 Hours: Microbiology 02/28/18 19:20 Wound Culture - Preliminary Foot, Right Gram Negative Rods 02/28/18 11:14 Aerobic Blood Culture - Preliminary Blood - Venous NO GROWTH AFTER 1 DAY Anaerobic Blood Culture - Preliminary NO GROWTH AFTER 1 DAY 02/28/18 11:06 Aerobic Blood Culture - Preliminary Blood - Venous - Lab Draw NO GROWTH AFTER 1 DAY Anaerobic Blood Culture - Preliminary NO GROWTH AFTER 1 DAY Med Orders - Current: Current Medications Acetaminophen (Tylenol) 650 mg PO Q4H PRN PRN Reason: Pain/Fever Last Admin: 02/28/18 23:12 Dose: 650 mg Aspirin (Halfprin) 81 mg PO DAILY [facility] Last Admin: 03/01/18 10:06 Dose: 81 mg Citalopram Hydrobromide (Celexa) 20 mg PO BEDTIME [facility] Last Admin: 02/28/18 21:02 Dose: 20 mg Clopidogrel Bisulfate (Plavix) 75 mg PO DAILY [facility] Last Admin: 03/01/18 10:07 Dose: 75 mg Dextrose/Water (Dextrose 50% In Water) 50 ml IVPUSH ASDIRECTED PRN PRN Reason: Hypoglycemia Docusate Sodium (Colace) 100 mg PO BID PRN PRN Reason: Constipation Duloxetine HCl (Cymbalta) 30 mg PO DAILY [facility] Last Admin: 03/01/18 10:06 Dose: 30 mg Gabapentin (Neurontin) 300 mg PO BID [facility] Last Admin: 03/01/18 12:47 Dose: 300 mg Heparin Sodium (Porcine) (Heparin Sodium) 5,000 units SUBCUT Q8H [facility] Last Admin: 03/01/18 10:07 Dose: 5,000 units Clindamycin Phosphate 900 mg/ (Sodium Chloride) 106 mls @ 100 mls/hr IV Q6H [facility] Last Admin: 03/01/18 12:48 Dose: 100 mls/hr Insulin Glargine (Lantus Solostar) 15 units SUBCUT BID [facility] Last Admin: 03/01/18 10:08 Dose: 15 units Insulin Human Lispro (Humalog) 0 unit SUBCUT QIDACANDBED [facility]; Protocol Last Admin: 03/01/18 12:47 Dose: Not Given Lorazepam (Ativan) 0.25 mg PO BEDTIME [facility] Last Admin: 02/28/18 21:02 Dose: 0.25 mg Metformin HCl (Glucophage) 1,000 mg PO BID [facility] Last Admin: 03/01/18 10:07 Dose: 1,000 mg Nystatin (Nystatin Crm) 0 gm TOP BID [facility] Last Admin: 03/01/18 10:07 Dose: 1 applic Pregabalin (Lyrica) 50 mg PO TID [facility] Last Admin: 03/01/18 10:06 Dose: 50 mg Quetiapine Fumarate (Seroquel) 250 mg PO DAILY [facility] Last Admin: 03/01/18 10:06 Dose: 250 mg Saccharomyces Boulardii (Florastor) 500 mg PO DAILY [facility] Last Admin: 03/01/18 10:06 Dose: 500 mg Simvastatin (Zocor) 20 mg PO BEDTIME [facility] Last Admin: 02/28/18 21:02 Dose: 20 mg Sodium Chloride (Saline Flush) 10 ml FLUSH ASDIRECTED PRN PRN Reason: Keep Vein Open Last Admin: 09/23/18 10:45 Dose: 10 ml Discontinued Medications Furosemide (Lasix) 40 mg IVPUSH ONETIME ONE Stop: 02/28/18 21:31 Last Admin: 02/28/18 21:04 Dose: 40 mg Ceftriaxone Sodium 2 gm/ (Sodium Chloride) 100 mls @ 100 mls/hr IV ONETIME ONE Stop: 02/28/18 11:25 Last Admin: 02/28/18 10:46 Dose: 100 mls/hr Sodium Chloride (Normal Saline) Confirm Administered Dose 500 mls @ as directed .ROUTE .STK-MED ONE Stop: 02/28/18 14:00 Last Admin: 02/28/18 14:10 Dose: Not Given Sodium Chloride (Normal Saline) Confirm Administered Dose 100 mls @ as directed .ROUTE .STK-MED ONE Stop: 02/28/18 20:50 Last Admin: 02/28/18 21:00 Dose: Not Given Sodium Chloride (Normal Saline) 100 mls @ 100 mls/hr IV ASDIRECTED MAKAYLA Stop: 03/01/18 00:03 Last Admin: 02/28/18 21:14 Dose: 100 mls/hr Naloxone HCl (Narcan) 2 mg IVPUSH ONETIME ONE Stop: 02/28/18 12:31 Last Admin: 02/28/18 13:30 Dose: 2 mg - Exam Quality Assessment: Supplemental Oxygen, DVT Prophylaxis General: Alert, Oriented, Cooperative HEENT: Pupils Equal, Pupils Reactive, EOMI, Mucous Membr. Moist/[place] Neck: Supple, Trachea Midline Lungs: Clear to Auscultation. No: Normal Respiratory Effort (Increased respiratory effort) GI/Abdominal Exam: Normal Bowel Sounds, Soft, Non-Tender, Other (Fungal infection under left breast) (Male) Exam: Deferred Back Exam: Normal Inspection, Decreased Range of Motion Extremities: No Pedal Edema, Slow Capillary Refill, Limited Range of Motion, Other (Multiple scabs and lesions to feet and legs bilaterally. Left 5th toe amputated.) Peripheral Pulses: 2+: Carotid (L), Carotid (R), Posterior Tibial (L), Posterior Tibial (R), Dorsalis Pedis (L), Dorsalis Pedis (R) Skin: Warm, Dry Wound/Incisions: Other (Non healing lesion on right foot with dressing. Dressing to left f[place]man.) Neurological: No New Focal Deficit Psy/Mental Status: Alert, Normal Affect, Normal Mood - Problem List Review Problem List Initiated/Reviewed/Updated: Yes - Plan Plan:: Impression: Aspiration PNA, query HCAP * WBC 11.62 --> 9.20 * Chest X-ray showed increased density in the right mid and lower lung * Discontinue clindamycin and start levoquin and vancomycin Narcotic overdose, s/p Narcan 3 mg; query iatrogenic Acute respiratory distress, resolved Query JANY * Patient using BIPAP here; does not have at [place] Morbid obesity Acute/chronic wounds, assessment of R foot re:OM * R foot X-ray does not show definite signs of erosion * Preliminary cultures show gram negative rods Anemia, s/p 1 unit PRBCs Acute on chronic kidney failure * Creatinine 1.9 --> 1.7, BUN 41 * EGFR 36 --> 40 Diabetes Clarify mental health (query anxiety/depression/bipolar disorder) Plan: ICU Keep O2 sat > 92% MRI re: right heel, chronic infection; will order once GFR improves IVF as needed Wound care PRBCs, keep Hgb>9.0 Lasix after second PRBCs Wound care consult, PT Adjust Insulin for ADA 1800 patricia Accurate I/Os Home meds Daily Labs DVT/GI prophylaxis Consider Psych consult to simplify medication - Dr. Hall Consult PT/OT/CM Recommend sleep study to assess for sleep apnea out patient Disposition 96 hours, return to SNF <Lexi Guadarrama - Last Filed: 03/02/18 19:36> - Patient Data Vitals - Most Recent: Last Vital Signs Temp 36.7 C 03/02/18 11:39 Pulse 76 03/02/18 11:39 Resp 20 03/02/18 11:39 BP 163/95 H 03/02/18 13:16 Pulse Ox 95 03/02/18 13:28 I&O - Last 24 Hours: Intake & Output 03/02/18 03/02/18 03/02/18 06:59 14:59 22:59 Intake Total 948 669 8164 Output Total 900 Balance -[id number] Lab Results Last 24 Hours: Laboratory Results - last 24 hr 03/01/18 03/02/18 03/02/18 Range/Units 20:15 06:05 06:06 WBC 8.36 (4.23-9.07) K/mm3 RBC 3.72 L (4.63-6.08) M/mm3 Hgb 10.4 L (13.7-17.5) gm/L Hct 34.9 L (40.1-51.0) % MCV 93.8 H (79.0-92.2) fl MCH 28.0 (25.7-32.2) pg MCHC 29.8 L (32.2-35.5) g/dl RDW Std Deviation 56.6 H (35.1-43.9) fL Plt Count 221 (163-337) K/mm3 MPV 10.2 (9.4-12.3) fl Neut % (Auto) 77.1 H (34.0-67.9) % Lymph % (Auto) 9.0 L (21.8-53.1) % [place] % (Auto) 11.2 (5.3-12.2) % Eos % (Auto) 2.2 (0.8-7.0) Baso % (Auto) 0.1 (0.1-1.2) % Neut # (Auto) 6.45 H (1.78-5.38) K/mm3 Lymph # (Auto) 0.75 L (1.32-3.57) K/mm3 [place] # (Auto) 0.94 H (0.30-0.82) K/mm3 Eos # (Auto) 0.18 (0.04-0.54) K/mm3 Baso # (Auto) 0.01 (0.01-0.08) K/mm3 Manual Slide Review Abnormal smear Sodium (136-145) mEq/L Potassium (3.5-5.1) mEq/L Chloride (98-107) mEq/L Carbon Dioxide (21-32) mEq/L Anion Gap (5-15) BUN (7-18) mg/dL Creatinine (0.7-1.3) mg/dL Est Cr Clr Drug Dosing mL/min Estimated GFR (MDRD) (>60) mL/min BUN/Creatinine Ratio (14-18) Glucose (80-115) mg/dL POC Glucose 187 H 127 H (80-115) mg/dL Lactic Acid (0.4-2.0) mmol/L Calcium (8.5-10.1) mg/dL Magnesium (1.8-2.4) mg/dl C-Reactive Protein (<1.0) mg/dL NT-Pro-B Natriuret Pep (0-125) pg/mL 03/02/18 03/02/18 03/02/18 Range/Units 06:06 06:06 06:06 WBC (4.23-9.07) K/mm3 RBC (4.63-6.08) M/mm3 Hgb (13.7-17.5) gm/L Hct (40.1-51.0) % MCV (79.0-92.2) fl MCH (25.7-32.2) pg MCHC (32.2-35.5) g/dl RDW Std Deviation (35.1-43.9) fL Plt Count (163-337) K/mm3 MPV (9.4-12.3) fl Neut % (Auto) (34.0-67.9) % Lymph % (Auto) (21.8-53.1) % [place] % (Auto) (5.3-12.2) % Eos % (Auto) (0.8-7.0) Baso % (Auto) (0.1-1.2) % Neut # (Auto) (1.78-5.38) K/mm3 Lymph # (Auto) (1.32-3.57) K/mm3 [place] # (Auto) (0.30-0.82) K/mm3 Eos # (Auto) (0.04-0.54) K/mm3 Baso # (Auto) (0.01-0.08) K/mm3 Manual Slide Review Sodium 138 (136-145) mEq/L Potassium 4.9 (3.5-5.1) mEq/L Chloride 105 (98-107) mEq/L Carbon Dioxide 27 (21-32) mEq/L Anion Gap 10.9 (5-15) BUN 40 H (7-18) mg/dL Creatinine 1.5 H (0.7-1.3) mg/dL Est Cr Clr Drug Dosing 33.80 mL/min Estimated GFR (MDRD) 47 (>60) mL/min BUN/Creatinine Ratio 26.7 H (14-18) Glucose 126 H (80-115) mg/dL POC Glucose (80-115) mg/dL Lactic Acid 0.6 (0.4-2.0) mmol/L Calcium 8.6 (8.5-10.1) mg/dL Magnesium 2.4 (1.8-2.4) mg/dl C-Reactive Protein 17.7 H* (<1.0) mg/dL NT-Pro-B Natriuret Pep 1110 H (0-125) pg/mL 03/02/18 03/02/18 Range/Units 11:09 17:04 WBC (4.23-9.07) K/mm3 RBC (4.63-6.08) M/mm3 Hgb (13.7-17.5) gm/L Hct (40.1-51.0) % MCV (79.0-92.2) fl MCH (25.7-32.2) pg MCHC (32.2-35.5) g/dl RDW Std Deviation (35.1-43.9) fL Plt Count (163-337) K/mm3 MPV (9.4-12.3) fl Neut % (Auto) (34.0-67.9) % Lymph % (Auto) (21.8-53.1) % [place] % (Auto) (5.3-12.2) % Eos % (Auto) (0.8-7.0) Baso % (Auto) (0.1-1.2) % Neut # (Auto) (1.78-5.38) K/mm3 Lymph # (Auto) (1.32-3.57) K/mm3 [place] # (Auto) (0.30-0.82) K/mm3 Eos # (Auto) (0.04-0.54) K/mm3 Baso # (Auto) (0.01-0.08) K/mm3 Manual Slide Review Sodium (136-145) mEq/L Potassium (3.5-5.1) mEq/L Chloride (98-107) mEq/L Carbon Dioxide (21-32) mEq/L Anion Gap (5-15) BUN (7-18) mg/dL Creatinine (0.7-1.3) mg/dL Est Cr Clr Drug Dosing mL/min Estimated GFR (MDRD) (>60) mL/min BUN/Creatinine Ratio (14-18) Glucose (80-115) mg/dL POC Glucose 129 H 136 H (80-115) mg/dL Lactic Acid (0.4-2.0) mmol/L Calcium (8.5-10.1) mg/dL Magnesium (1.8-2.4) mg/dl C-Reactive Protein (<1.0) mg/dL NT-Pro-B Natriuret Pep (0-125) pg/mL Jr Results Last 24 Hours: Microbiology 02/28/18 19:20 Wound Culture - Preliminary Foot, Right Pseudomonas Aeruginosa 02/28/18 11:14 Aerobic Blood Culture - Preliminary Blood - Venous NO GROWTH AFTER 2 DAYS Anaerobic Blood Culture - Preliminary NO GROWTH AFTER 2 DAYS 02/28/18 11:06 Aerobic Blood Culture - Preliminary Blood - Venous - Lab Draw NO GROWTH AFTER 2 DAYS Anaerobic Blood Culture - Preliminary NO GROWTH AFTER 2 DAYS Med Orders - Current: Current Medications Acetaminophen (Tylenol) 650 mg PO Q4H PRN PRN Reason: Pain/Fever Last Admin: 03/02/18 17:36 Dose: 650 mg Hydrocodone Bitart/Acetaminophen ([place] 325-5 Mg) 1 tab PO Q6H PRN PRN Reason: Pain (moderate 4-6) Aspirin (Halfprin) 81 mg PO DAILY [facility] Last Admin: 03/02/18 08:01 Dose: 81 mg Citalopram Hydrobromide (Celexa) 20 mg PO BEDTIME [facility] Last Admin: 03/01/18 20:18 Dose: 20 mg Clopidogrel Bisulfate (Plavix) 75 mg PO DAILY [facility] Last Admin: 03/02/18 08:01 Dose: 75 mg Dextrose/Water (Dextrose 50% In Water) 50 ml IVPUSH ASDIRECTED PRN PRN Reason: Hypoglycemia Docusate Sodium (Colace) 100 mg PO BID PRN PRN Reason: Constipation Duloxetine HCl (Cymbalta) 30 mg PO DAILY [facility] Last Admin: 03/02/18 08:01 Dose: 30 mg Gabapentin (Neurontin) 600 mg PO TID [facility] Heparin Sodium (Porcine) (Heparin Sodium) 5,000 units SUBCUT Q8H [facility] Last Admin: 03/02/18 17:35 Dose: 5,000 units Hydralazine HCl (Apresoline) 20 mg IVPUSH Q6H PRN PRN Reason: Hypertension Last Admin: 03/02/18 13:15 Dose: 20 mg Levofloxacin/Dextrose 750 mg/ (Premix) 150 mls @ 100 mls/hr IV Q48H [facility] Last Admin: 03/01/18 18:18 Dose: 100 mls/hr Vancomycin HCl 1 gm/Vancomycin HCl 250 mg/ Sodium Chloride 500 mls @ 333.025 mls/hr IV Q24H [facility] Last Admin: 03/02/18 17:35 Dose: 333.025 mls/hr Cefepime HCl 2 gm/ Premix 50 mls @ 100 mls/hr IV Q12H [facility] Insulin Glargine (Lantus Solostar) 15 units SUBCUT BID [facility] Last Admin: 03/02/18 08:03 Dose: 15 units Insulin Human Lispro (Humalog) 0 unit SUBCUT QIDACANDBED [facility]; Protocol Last Admin: 03/02/18 17:53 Dose: Not Given Metformin HCl (Glucophage) 1,000 mg PO BID [facility] Last Admin: 03/02/18 08:01 Dose: 1,000 mg Nystatin (Nystatin Crm) 0 gm TOP BID [facility] Last Admin: 03/02/18 08:03 Dose: 1 applic Pregabalin (Lyrica) 50 mg PO TID [facility] Last Admin: 03/02/18 14:35 Dose: 50 mg Quetiapine Fumarate (Seroquel) 250 mg PO BEDTIME [facility] Saccharomyces Boulardii (Florastor) 500 mg PO DAILY [facility] Last Admin: 03/02/18 08:01 Dose: 500 mg Simvastatin (Zocor) 20 mg PO BEDTIME [facility] Last Admin: 03/01/18 20:18 Dose: 20 mg Sodium Chloride (Saline Flush) 10 ml FLUSH ASDIRECTED PRN PRN Reason: Keep Vein Open Last Admin: 02/28/18 10:45 Dose: 10 ml Sodium Chloride ([place] Nasal Penrose) 0 ml FILIPPO BID PRN PRN Reason: Nasal Dryness Discontinued Medications Furosemide (Lasix) 40 mg IVPUSH ONETIME ONE Stop: 02/28/18 21:31 Last Admin: 02/28/18 21:04 Dose: 40 mg Gabapentin (Neurontin) 300 mg PO BID [facility] Last Admin: 03/02/18 08:00 Dose: 300 mg Hydromorphone HCl (Dilaudid) 2 mg PO BEDTIME [facility] Last Admin: 03/01/18 20:58 Dose: 2 mg Hydromorphone HCl (Dilaudid) 2 mg IVPUSH ONETIME ONE Stop: 03/02/18 19:03 Ceftriaxone Sodium 2 gm/ (Sodium Chloride) 100 mls @ 100 mls/hr IV ONETIME ONE Stop: 02/28/18 11:25 Last Admin: 02/28/18 10:46 Dose: 100 mls/hr Sodium Chloride (Normal Saline) Confirm Administered Dose 500 mls @ as directed .ROUTE .STK-MED ONE Stop: 02/28/18 14:00 Last Admin: 02/28/18 14:10 Dose: Not Given Clindamycin Phosphate 900 mg/ (Sodium Chloride) 106 mls @ 100 mls/hr IV Q6H [facility] Last Admin: 03/01/18 17:09 Dose: 100 mls/hr Sodium Chloride (Normal Saline) Confirm Administered Dose 100 mls @ as directed .ROUTE .STK-MED ONE Stop: 02/28/18 20:50 Last Admin: 02/28/18 21:00 Dose: Not Given Sodium Chloride (Normal Saline) 100 mls @ 100 mls/hr IV ASDIRECTED [facility] Stop: 03/01/18 00:03 Last Admin: 02/28/18 21:14 Dose: 100 mls/hr Vancomycin HCl 1 gm/Vancomycin HCl 500 mg/ Sodium Chloride 500 mls @ 333.025 mls/hr IV ONETIME ONE Stop: 03/01/18 19:00 Last Admin: 03/01/18 18:20 Dose: 333.025 mls/hr Lorazepam (Ativan) 0.25 mg PO BEDTIME [facility] Last Admin: 03/01/18 20:19 Dose: 0.25 mg Naloxone HCl (Narcan) 2 mg IVPUSH ONETIME ONE Stop: 02/28/18 12:31 Last Admin: 02/28/18 13:30 Dose: 2 mg Quetiapine Fumarate (Seroquel) 250 mg PO DAILY [facility] Last Admin: 03/01/18 10:06 Dose: 250 mg Vancomycin HCl (Pharmacy To Dose - Vancomycin) 0 dose .XX ASDIRECTED PRN PRN Reason: RX TO DOSE VANCO - Problem List & Annotations (1) Morbid (severe) obesity due to excess calories SNOMED Code(s): 706757697 Code(s): E66.01 - MORBID (SEVERE) OBESITY DUE TO EXCESS CALORIES Status: Chronic Current Visit: Yes (2) Diabetes mellitus SNOMED Code(s): 75316840 Code(s): E11.9 - TYPE 2 DIABETES MELLITUS WITHOUT COMPLICATIONS Status: Chronic Current Visit: Yes (3) Narcotic overdose SNOMED Code(s): 692505588 Code(s): T40.601A - POISONING BY UNSP NARCOTICS, ACCIDENTAL, INIT Status: Acute Current Visit: Yes (4) Anemia SNOMED Code(s): 459038316 Code(s): D64.9 - ANEMIA, UNSPECIFIED Status: Acute Current Visit: Yes Qualifiers: Anemia type: other cause Other causes of anemia: other cause, not classified Qualified Code(s): D64.89 - Other specified anemias (5) Aspiration pneumonia SNOMED Code(s): 286717659 Code(s): J69.0 - PNEUMONITIS DUE TO INHALATION OF FOOD AND VOMIT Status: Acute Current Visit: Yes Qualifiers: Aspiration pneumonia type: unspecified Laterality: right Lung location: middle lobe of lung Qualified Code(s): J69.0 - Pneumonitis due to inhalation of food and vomit (6) Hypercarbia SNOMED Code(s): 83928554 Code(s): R06.89 - OTHER ABNORMALITIES OF BREATHING Status: Acute Current Visit: Yes (7) Hypoxia SNOMED Code(s): 820009164 Code(s): R09.02 - HYPOXEMIA Status: Acute Current Visit: Yes (8) Renal insufficiency SNOMED Code(s): 262873027, 503873050 Code(s): N28.9 - DISORDER OF KIDNEY AND URETER, UNSPECIFIED Status: Acute Current Visit: Yes - My Orders Last 24 Hours: My Active Orders 03/01/18 20:32 hydrALAZINE [Apresoline] 20 mg IVPUSH Q6H PRN 03/01/18 20:34 Acetaminophen/HYDROcodone [[place] 325-5 MG] 1 tab PO Q6H PRN 03/02/18 09:39 Patient Status [ADT] Routine 03/02/18 16:23 Up to Chair [RC] ASDIRECTED 03/02/18 21:00 Gabapentin [Neurontin] 600 mg PO TID QUEtiapine [SEROquel] 250 mg PO BEDTIME 03/03/18 05:00 BMP [BASIC METABOLIC PANEL,BMP] [CHEM] DAILY CBC WITH AUTO DIFF [HEME] DAILY CRP [C-REACTIVE PROTEIN] [CHEM] DAILY LACTIC ACID [CHEM] DAILY MAGNESIUM [CHEM] DAILY 03/03/18 08:00 CXR [Chest 1V Frontal] [CR] DAILY 03/03/18 17:30 VANCOMYCIN TROUGH [CHEM] Timed 03/04/18 05:00 BMP [BASIC METABOLIC PANEL,BMP] [CHEM] DAILY CBC WITH AUTO DIFF [HEME] DAILY CRP [C-REACTIVE PROTEIN] [CHEM] DAILY LACTIC ACID [CHEM] DAILY MAGNESIUM [CHEM] DAILY 03/04/18 07:00 CBC W/O DIFF,HEMOGRAM [HEME] MOTH@0700 03/08/18 07:00 CBC W/O DIFF,HEMOGRAM [HEME] MOTH@0700 03/11/18 07:00 CBC W/O DIFF,HEMOGRAM [HEME] MOTH@0700 03/15/18 07:00 CBC W/O DIFF,HEMOGRAM [HEME] MOTH@0700 03/18/18 07:00 CBC W/O DIFF,HEMOGRAM [HEME] MOTH@0700 - Plan Plan:: Patient was seen and examined; agree with assessment and plan.
[2018-03-01] MEDS ORDERED: Vancomycin 1500 MG in Sodium Chloride 0.9% 500 ML IV ONE ×3 (17:30)
[2018-03-01] MEDS: Levofloxacin/Dextrose 5%-Water 750 MG in Premix Bag 1 BAG IV SCH (18:18)
[2018-03-01] MEDS: Citalopram 20 MG Tab PO SCH (20:18)
[2018-03-01] MEDS: Simvastatin 20 MG Tab PO SCH (20:18)
[2018-03-01] MEDS: LORazepam 0.5 MG Tab PO SCH (20:19)
[2018-03-01] MEDS ORDERED: Acetaminophen/HYDROcodone 325-5 MG Tab PO PRN (20:34)
[2018-03-01] MEDS ORDERED: HYDROmorphone 2 MG Tab PO SCH (21:00)
[2018-03-01] MEDS: hydrALAZINE 20 MG/ML SDV IVPUSH PRN (21:04)
[2018-03-01] MEDS ORDERED: Sodium Chloride 0.65% Nasal Spray 45 ML Bottle NAS PRN (21:53)
[2018-03-02] MEDS: Heparin Sodium 5,000 Units/ML Vial SUBCUT SCH ×3 (02:59→17:35)
[2018-03-02] MEDS: Insulin Lispro 100 Unit/ML 3 ML KwikPen SUBCUT SCH ×4 (06:07→22:10)
--- NOTE | 2018-03-02 07:34 | PCM.PN ---
<Rosemary Hsu - Last Filed: 03/02/18 11:11> - General Info Date of Service: 03/02/18 Admission Dx/Problem (Free Text): Admission Diagnosis/Problem Admission Diagnosis/Problem Hypoxia Subjective Update: Nurses reported Mr. Jansen was up all night requesting frequent repositioning and changing. He reported getting no sleep due to aches and pains in his left knee, hip, and shoulder as well as "diabetic pain" in his right foot. He stated that before he came in he was sleeping day and night and now he can't sleep. He states that he is still coughing and feels short of breath. - Review of Systems General: Reports: No Symptoms HEENT: Reports: No Symptoms, Glasses Pulmonary: Reports: Shortness of Breath, Cough. Denies: Pleuritic Chest Pain, Hemoptysis, Wheezing Cardiovascular: Reports: Dyspnea on Exertion. Denies: Chest Pain, Palpitations , Edema, Lightheadedness Gastrointestinal: Denies: Abdominal Pain, Difficulty Swallowing, Nausea, Vomiting Genitourinary: Reports: No Symptoms Musculoskeletal: Reports: Shoulder Pain (Left), Foot Pain (Numbness; diabetic neuropathy), Joint Pain (Left knee and hip) Skin: Reports: No Symptoms Neurological: Reports: Numbness (To hands and feet). Denies: Confusion, Dizziness, Headache, Change in Speech Psychiatric: Reports: No Symptoms - Patient Data Vitals - Most Recent: Last Vital Signs Temp 97.4 F 03/02/18 04:00 Pulse 83 03/02/18 04:00 Resp 19 03/02/18 04:00 BP 134/84 03/02/18 04:00 Pulse Ox 95 03/02/18 04:00 Weight - Most Recent: 138.544 kg I&O - Last 24 Hours: Intake & Output 03/01/18 03/02/18 03/02/18 22:59 06:59 14:59 Intake Total 900 800 Output Total 900 Balance 900 -100 Lab Results Last 24 Hours: Laboratory Results - last 24 hr 03/01/18 03/01/18 03/01/18 Range/Units 05:47 05:47 12:15 WBC (4.23-9.07) K/mm3 RBC (4.63-6.08) M/mm3 Hgb (13.7-17.5) gm/L Hct (40.1-51.0) % MCV (79.0-92.2) fl MCH (25.7-32.2) pg MCHC (32.2-35.5) g/dl RDW Std Deviation (35.1-43.9) fL Plt Count (163-337) K/mm3 MPV (9.4-12.3) fl Neut % (Auto) (34.0-67.9) % Lymph % (Auto) (21.8-53.1) % [place] % (Auto) (5.3-12.2) % Eos % (Auto) (0.8-7.0) Baso % (Auto) (0.1-1.2) % Neut # (Auto) (1.78-5.38) K/mm3 Lymph # (Auto) (1.32-3.57) K/mm3 [place] # (Auto) (0.30-0.82) K/mm3 Eos # (Auto) (0.04-0.54) K/mm3 Baso # (Auto) (0.01-0.08) K/mm3 Manual Slide Review Sodium (136-145) mEq/L Potassium (3.5-5.1) mEq/L Chloride (98-107) mEq/L Carbon Dioxide (21-32) mEq/L Anion Gap (5-15) BUN (7-18) mg/dL Creatinine (0.7-1.3) mg/dL Est Cr Clr Drug Dosing mL/min Estimated GFR (MDRD) (>60) mL/min BUN/Creatinine Ratio (14-18) Glucose (80-115) mg/dL POC Glucose 149 H (80-115) mg/dL Lactic Acid (0.4-2.0) mmol/L Calcium (8.5-10.1) mg/dL Magnesium (1.8-2.4) mg/dl C-Reactive Protein 21.6 H* (<1.0) mg/dL NT-Pro-B Natriuret Pep 1456 H (0-125) pg/mL Mycoplasma pneumon IgM Negative (NEGATIVE) 03/01/18 03/01/18 03/02/18 Range/Units 17:07 20:15 06:05 WBC (4.23-9.07) K/mm3 RBC (4.63-6.08) M/mm3 Hgb (13.7-17.5) gm/L Hct (40.1-51.0) % MCV (79.0-92.2) fl MCH (25.7-32.2) pg MCHC (32.2-35.5) g/dl RDW Std Deviation (35.1-43.9) fL Plt Count (163-337) K/mm3 MPV (9.4-12.3) fl Neut % (Auto) (34.0-67.9) % Lymph % (Auto) (21.8-53.1) % [place] % (Auto) (5.3-12.2) % Eos % (Auto) (0.8-7.0) Baso % (Auto) (0.1-1.2) % Neut # (Auto) (1.78-5.38) K/mm3 Lymph # (Auto) (1.32-3.57) K/mm3 [place] # (Auto) (0.30-0.82) K/mm3 Eos # (Auto) (0.04-0.54) K/mm3 Baso # (Auto) (0.01-0.08) K/mm3 Manual Slide Review Sodium (136-145) mEq/L Potassium (3.5-5.1) mEq/L Chloride (98-107) mEq/L Carbon Dioxide (21-32) mEq/L Anion Gap (5-15) BUN (7-18) mg/dL Creatinine (0.7-1.3) mg/dL Est Cr Clr Drug Dosing mL/min Estimated GFR (MDRD) (>60) mL/min BUN/Creatinine Ratio (14-18) Glucose (80-115) mg/dL POC Glucose 150 H 187 H 127 H (80-115) mg/dL Lactic Acid (0.4-2.0) mmol/L Calcium (8.5-10.1) mg/dL Magnesium (1.8-2.4) mg/dl C-Reactive Protein (<1.0) mg/dL NT-Pro-B Natriuret Pep (0-125) pg/mL Mycoplasma pneumon IgM (NEGATIVE) 03/02/18 03/02/18 03/02/18 Range/Units 06:06 06:06 06:06 WBC 8.36 (4.23-9.07) K/mm3 RBC 3.72 L (4.63-6.08) M/mm3 Hgb 10.4 L (13.7-17.5) gm/L Hct 34.9 L (40.1-51.0) % MCV 93.8 H (79.0-92.2) fl MCH 28.0 (25.7-32.2) pg MCHC 29.8 L (32.2-35.5) g/dl RDW Std Deviation 56.6 H (35.1-43.9) fL Plt Count 221 (163-337) K/mm3 MPV 10.2 (9.4-12.3) fl Neut % (Auto) 77.1 H (34.0-67.9) % Lymph % (Auto) 9.0 L (21.8-53.1) % [place] % (Auto) 11.2 (5.3-12.2) % Eos % (Auto) 2.2 (0.8-7.0) Baso % (Auto) 0.1 (0.1-1.2) % Neut # (Auto) 6.45 H (1.78-5.38) K/mm3 Lymph # (Auto) 0.75 L (1.32-3.57) K/mm3 [place] # (Auto) 0.94 H (0.30-0.82) K/mm3 Eos # (Auto) 0.18 (0.04-0.54) K/mm3 Baso # (Auto) 0.01 (0.01-0.08) K/mm3 Manual Slide Review Abnormal smear Sodium 138 (136-145) mEq/L Potassium 4.9 (3.5-5.1) mEq/L Chloride 105 (98-107) mEq/L Carbon Dioxide 27 (21-32) mEq/L Anion Gap 10.9 (5-15) BUN 40 H (7-18) mg/dL Creatinine 1.5 H (0.7-1.3) mg/dL Est Cr Clr Drug Dosing 33.80 mL/min Estimated GFR (MDRD) 47 (>60) mL/min BUN/Creatinine Ratio 26.7 H (14-18) Glucose 126 H (80-115) mg/dL POC Glucose (80-115) mg/dL Lactic Acid (0.4-2.0) mmol/L Calcium 8.6 (8.5-10.1) mg/dL Magnesium 2.4 (1.8-2.4) mg/dl C-Reactive Protein 17.7 H* (<1.0) mg/dL NT-Pro-B Natriuret Pep 1110 H (0-125) pg/mL Mycoplasma pneumon IgM (NEGATIVE) 03/02/18 Range/Units 06:06 WBC (4.23-9.07) K/mm3 RBC (4.63-6.08) M/mm3 Hgb (13.7-17.5) gm/L Hct (40.1-51.0) % MCV (79.0-92.2) fl MCH (25.7-32.2) pg MCHC (32.2-35.5) g/dl RDW Std Deviation (35.1-43.9) fL Plt Count (163-337) K/mm3 MPV (9.4-12.3) fl Neut % (Auto) (34.0-67.9) % Lymph % (Auto) (21.8-53.1) % [place] % (Auto) (5.3-12.2) % Eos % (Auto) (0.8-7.0) Baso % (Auto) (0.1-1.2) % Neut # (Auto) (1.78-5.38) K/mm3 Lymph # (Auto) (1.32-3.57) K/mm3 [place] # (Auto) (0.30-0.82) K/mm3 Eos # (Auto) (0.04-0.54) K/mm3 Baso # (Auto) (0.01-0.08) K/mm3 Manual Slide Review Sodium (136-145) mEq/L Potassium (3.5-5.1) mEq/L Chloride (98-107) mEq/L Carbon Dioxide (21-32) mEq/L Anion Gap (5-15) BUN (7-18) mg/dL Creatinine (0.7-1.3) mg/dL Est Cr Clr Drug Dosing mL/min Estimated GFR (MDRD) (>60) mL/min BUN/Creatinine Ratio (14-18) Glucose (80-115) mg/dL POC Glucose (80-115) mg/dL Lactic Acid 0.6 (0.4-2.0) mmol/L Calcium (8.5-10.1) mg/dL Magnesium (1.8-2.4) mg/dl C-Reactive Protein (<1.0) mg/dL NT-Pro-B Natriuret Pep (0-125) pg/mL Mycoplasma pneumon IgM (NEGATIVE) Jr Results Last 24 Hours: Microbiology 02/28/18 19:20 Wound Culture - Preliminary Foot, Right Gram Negative Rods 02/28/18 11:14 Aerobic Blood Culture - Preliminary Blood - Venous NO GROWTH AFTER 1 DAY Anaerobic Blood Culture - Preliminary NO GROWTH AFTER 1 DAY 02/28/18 11:06 Aerobic Blood Culture - Preliminary Blood - Venous - Lab Draw NO GROWTH AFTER 1 DAY Anaerobic Blood Culture - Preliminary NO GROWTH AFTER 1 DAY Med Orders - Current: Current Medications Acetaminophen (Tylenol) 650 mg PO Q4H PRN PRN Reason: Pain/Fever Last Admin: 02/28/18 23:12 Dose: 650 mg Hydrocodone Bitart/Acetaminophen ([place] 325-5 Mg) 1 tab PO Q6H PRN PRN Reason: Pain (moderate 4-6) Aspirin (Halfprin) 81 mg PO DAILY ON LICENSE OF [facility] Last Admin: 03/01/18 10:06 Dose: 81 mg Citalopram Hydrobromide (Celexa) 20 mg PO BEDTIME ON LICENSE OF [facility] Last Admin: 03/01/18 20:18 Dose: 20 mg Clopidogrel Bisulfate (Plavix) 75 mg PO DAILY ON LICENSE OF [facility] Last Admin: 03/01/18 10:07 Dose: 75 mg Dextrose/Water (Dextrose 50% In Water) 50 ml IVPUSH ASDIRECTED PRN PRN Reason: Hypoglycemia Docusate Sodium (Colace) 100 mg PO BID PRN PRN Reason: Constipation Duloxetine HCl (Cymbalta) 30 mg PO DAILY ON LICENSE OF [facility] Last Admin: 03/01/18 10:06 Dose: 30 mg Gabapentin (Neurontin) 300 mg PO BID ON LICENSE OF [facility] Last Admin: 03/01/18 20:18 Dose: 300 mg Heparin Sodium (Porcine) (Heparin Sodium) 5,000 units SUBCUT Q8H ON LICENSE OF [facility] Last Admin: 03/02/18 02:59 Dose: 5,000 units Hydralazine HCl (Apresoline) 20 mg IVPUSH Q6H PRN PRN Reason: Hypertension Last Admin: 03/01/18 21:04 Dose: 20 mg Hydromorphone HCl (Dilaudid) 2 mg PO BEDTIME ON LICENSE OF [facility] Last Admin: 03/01/18 20:58 Dose: 2 mg Levofloxacin/Dextrose 750 mg/ (Premix) 150 mls @ 100 mls/hr IV Q48H ON LICENSE OF [facility] Last Admin: 03/01/18 18:18 Dose: 100 mls/hr Vancomycin HCl 1 gm/Vancomycin HCl 250 mg/ Sodium Chloride 500 mls @ 333.025 mls/hr IV Q24H ON LICENSE OF [facility] Insulin Glargine (Lantus Solostar) 15 units SUBCUT BID ON LICENSE OF [facility] Last Admin: 03/01/18 20:22 Dose: 15 units Insulin Human Lispro (Humalog) 0 unit SUBCUT QIDACANDBED ON LICENSE OF [facility]; Protocol Last Admin: 03/02/18 06:07 Dose: Not Given Lorazepam (Ativan) 0.25 mg PO BEDTIME ON LICENSE OF [facility] Last Admin: 03/01/18 20:19 Dose: 0.25 mg Metformin HCl (Glucophage) 1,000 mg PO BID ON LICENSE OF [facility] Last Admin: 03/01/18 20:17 Dose: 1,000 mg Nystatin (Nystatin Crm) 0 gm TOP BID ON LICENSE OF [facility] Last Admin: 03/01/18 21:00 Dose: 1 applic Pregabalin (Lyrica) 50 mg PO TID ON LICENSE OF [facility] Last Admin: 03/01/18 20:17 Dose: 50 mg Quetiapine Fumarate (Seroquel) 250 mg PO DAILY ON LICENSE OF [facility] Last Admin: 03/01/18 10:06 Dose: 250 mg Saccharomyces Boulardii (Florastor) 500 mg PO DAILY ON LICENSE OF [facility] Last Admin: 03/01/18 10:06 Dose: 500 mg Simvastatin (Zocor) 20 mg PO BEDTIME ON LICENSE OF [facility] Last Admin: 03/01/18 20:18 Dose: 20 mg Sodium Chloride (Saline Flush) 10 ml FLUSH ASDIRECTED PRN PRN Reason: Keep Vein Open Last Admin: 02/28/18 10:45 Dose: 10 ml Sodium Chloride ([place] Nasal [place]) 0 ml FILIPPO BID PRN PRN Reason: Nasal Dryness Vancomycin HCl (Pharmacy To Dose - Vancomycin) 0 dose .XX ASDIRECTED PRN PRN Reason: RX TO DOSE VANCO Discontinued Medications Furosemide (Lasix) 40 mg IVPUSH ONETIME ONE Stop: 02/28/18 21:31 Last Admin: 02/28/18 21:04 Dose: 40 mg Ceftriaxone Sodium 2 gm/ (Sodium Chloride) 100 mls @ 100 mls/hr IV ONETIME ONE Stop: 02/28/18 11:25 Last Admin: 02/28/18 10:46 Dose: 100 mls/hr Sodium Chloride (Normal Saline) Confirm Administered Dose 500 mls @ as directed .ROUTE .STK-MED ONE Stop: 02/28/18 14:00 Last Admin: 02/28/18 14:10 Dose: Not Given Clindamycin Phosphate 900 mg/ (Sodium Chloride) 106 mls @ 100 mls/hr IV Q6H ON LICENSE OF [facility] Last Admin: 03/01/18 17:09 Dose: 100 mls/hr Sodium Chloride (Normal Saline) Confirm Administered Dose 100 mls @ as directed .ROUTE .K-MED ONE Stop: 02/28/18 20:50 Last Admin: 02/28/18 21:00 Dose: Not Given Sodium Chloride (Normal Saline) 100 mls @ 100 mls/hr IV ASDIRECTED MAKAYLA Stop: 03/01/18 00:03 Last Admin: 02/28/18 21:14 Dose: 100 mls/hr Vancomycin HCl 1 gm/Vancomycin HCl 500 mg/ Sodium Chloride 500 mls @ 333.025 mls/hr IV ONETIME ONE Stop: 03/01/18 19:00 Last Admin: 03/01/18 18:20 Dose: 333.025 mls/hr Naloxone HCl (Narcan) 2 mg IVPUSH ONETIME ONE Stop: 02/28/18 12:31 Last Admin: 02/28/18 13:30 Dose: 2 mg - Exam Quality Assessment: Supplemental Oxygen, DVT Prophylaxis General: Alert, Oriented, Cooperative HEENT: Pupils Equal, Pupils Reactive, EOMI, Mucous Membr. Moist/[place] Neck: Supple, Trachea Midline Lungs: Decreased Breath Sounds. No: Normal Respiratory Effort (Increased respiratory effort), Rhonchi, Wheezing Cardiovascular: Regular Rate, Regular Rhythm GI/Abdominal Exam: Normal Bowel Sounds, Soft, Non-Tender (Male) Exam: Deferred Back Exam: Decreased Range of Motion Extremities: No Pedal Edema, Slow Capillary Refill, Limited Range of Motion Peripheral Pulses: 2+: Carotid (L), Carotid (R), Radial (L), Radial (R), Posterior Tibial (L), Posterior Tibial (R) Skin: Warm, Dry, Other (Multiple scabs to hands, feet, and knees bilaterally. Stasis dermatitis to bilateral lower limbs.) Wound/Incisions: Dressing Dry and Intact (To right heel and left feldman. ) Neurological: No New Focal Deficit Psy/Mental Status: Alert, Normal Affect, Normal Mood - Problem List Review Problem List Initiated/Reviewed/Updated: Yes - My Orders Last 24 Hours: My Active Orders 03/01/18 17:00 Levofloxacin/Dextrose 5%-Water [Levaquin in D5W 750 MG/150 ML] 750 mg Premix Bag 1 bag IV Q48H 03/01/18 17:10 Consult to Physician [CONS] Routine 03/01/18 17:12 Notify Provider Consults [RC] ASDIRECTED 03/01/18 17:15 Vancomycin Pharmacy to Dose [Pharmacy to Dose - Vancomycin] 0 dose .XX ASDIRECTED PRN 03/02/18 18:00 Vancomycin 1 gm Vancomycin 250 mg Sodium Chloride 0.9% [Normal Saline] 500 ml IV Q24H - Plan Plan:: Impression: Aspiration PNA, query HCAP * WBC 11.62 --> 9.20 --> 8.36 * Chest X-ray on admission showed increased density in the right mid and lower lung. Chest X-ray today shows continuing consolidation of the right lung base. * Mycoplasma IgM negative * Discontinue clindamycin and start levoquin and vancomycin Narcotic overdose, s/p Narcan 3 mg; query iatrogenic * Presented to ER with shortness of breath, hypoxemia, low BP, and vision changes which improved with narcan * Patient has hydrocodone BID at [facility] * Tylenol for pain control since admission Acute respiratory distress, resolved * Patient was on 3L of O2 overnight, O2 stats around 94% * Now on 2.5L Query JANY * Patient using BIPAP here; does not have at [facility] Morbid obesity Acute/chronic wounds, assessment of R foot re:OM * R foot X-ray does not show definite signs of erosion * Preliminary cultures show gram negative rods * PT changed dressing today and nursing will take over Anemia, s/p 1 unit PRBCs * Hgb on admission 7.8 --> 10.7 --> 10.4 Acute on chronic kidney failure * Creatinine 1.9 --> 1.7 --> 1.5, BUN stable ~40 * EGFR 36 --> 40 --> 47 Diabetes Clarify mental health (query anxiety/depression/bipolar disorder) * History of alcohol, cannabis, and nicotine dependence * Previous diagnosis of schizoaffective disorder, bipolar disorder, and anxiety Pain in left hip/knee/shoulder * Patient states this is chronic but worse in the last few weeks * Nursing to call [facility] and see if any assessment was done Plan: Med surg with tele Keep O2 sat > 92% MRI re: right heel, chronic infection; will order once GFR improves IVF as needed Wound care PRBCs, keep Hgb>9.0 Adjust Insulin for ADA 1800 patricia Accurate I/Os Home meds Daily Labs DVT/GI prophylaxis Psych consult to simplify medication - Dr. Hall will see patient today Consult PT/OT/CM Recommend sleep study to assess for sleep apnea out patient Disposition 96 hours, return to SNF <Lexi Guadarrama - Last Filed: 03/02/18 19:37> - Patient Data Vitals - Most Recent: Last Vital Signs Temp 36.7 C 03/02/18 11:39 Pulse 76 03/02/18 11:39 Resp 20 03/02/18 11:39 BP 163/95 H 03/02/18 13:16 Pulse Ox 95 03/02/18 13:28 I&O - Last 24 Hours: Intake & Output 03/02/18 03/02/18 03/02/18 06:59 14:59 22:59 Intake Total 648 050 0231 Output Total 900 Balance -500 599 2323 Lab Results Last 24 Hours: Laboratory Results - last 24 hr 03/01/18 03/02/18 03/02/18 Range/Units 20:15 06:05 06:06 WBC 8.36 (4.23-9.07) K/mm3 RBC 3.72 L (4.63-6.08) M/mm3 Hgb 10.4 L (13.7-17.5) gm/L Hct 34.9 L (40.1-51.0) % MCV 93.8 H (79.0-92.2) fl MCH 28.0 (25.7-32.2) pg MCHC 29.8 L (32.2-35.5) g/dl RDW Std Deviation 56.6 H (35.1-43.9) fL Plt Count 221 (163-337) K/mm3 MPV 10.2 (9.4-12.3) fl Neut % (Auto) 77.1 H (34.0-67.9) % Lymph % (Auto) 9.0 L (21.8-53.1) % [place] % (Auto) 11.2 (5.3-12.2) % Eos % (Auto) 2.2 (0.8-7.0) Baso % (Auto) 0.1 (0.1-1.2) % Neut # (Auto) 6.45 H (1.78-5.38) K/mm3 Lymph # (Auto) 0.75 L (1.32-3.57) K/mm3 [place] # (Auto) 0.94 H (0.30-0.82) K/mm3 Eos # (Auto) 0.18 (0.04-0.54) K/mm3 Baso # (Auto) 0.01 (0.01-0.08) K/mm3 Manual Slide Review Abnormal smear Sodium (136-145) mEq/L Potassium (3.5-5.1) mEq/L Chloride (98-107) mEq/L Carbon Dioxide (21-32) mEq/L Anion Gap (5-15) BUN (7-18) mg/dL Creatinine (0.7-1.3) mg/dL Est Cr Clr Drug Dosing mL/min Estimated GFR (MDRD) (>60) mL/min BUN/Creatinine Ratio (14-18) Glucose (80-115) mg/dL POC Glucose 187 H 127 H (80-115) mg/dL Lactic Acid (0.4-2.0) mmol/L Calcium (8.5-10.1) mg/dL Magnesium (1.8-2.4) mg/dl C-Reactive Protein (<1.0) mg/dL NT-Pro-B Natriuret Pep (0-125) pg/mL 03/02/18 03/02/18 03/02/18 Range/Units 06:06 06:06 06:06 WBC (4.23-9.07) K/mm3 RBC (4.63-6.08) M/mm3 Hgb (13.7-17.5) gm/L Hct (40.1-51.0) % MCV (79.0-92.2) fl MCH (25.7-32.2) pg MCHC (32.2-35.5) g/dl RDW Std Deviation (35.1-43.9) fL Plt Count (163-337) K/mm3 MPV (9.4-12.3) fl Neut % (Auto) (34.0-67.9) % Lymph % (Auto) (21.8-53.1) % [place] % (Auto) (5.3-12.2) % Eos % (Auto) (0.8-7.0) Baso % (Auto) (0.1-1.2) % Neut # (Auto) (1.78-5.38) K/mm3 Lymph # (Auto) (1.32-3.57) K/mm3 [place] # (Auto) (0.30-0.82) K/mm3 Eos # (Auto) (0.04-0.54) K/mm3 Baso # (Auto) (0.01-0.08) K/mm3 Manual Slide Review Sodium 138 (136-145) mEq/L Potassium 4.9 (3.5-5.1) mEq/L Chloride 105 (98-107) mEq/L Carbon Dioxide 27 (21-32) mEq/L Anion Gap 10.9 (5-15) BUN 40 H (7-18) mg/dL Creatinine 1.5 H (0.7-1.3) mg/dL Est Cr Clr Drug Dosing 33.80 mL/min Estimated GFR (MDRD) 47 (>60) mL/min BUN/Creatinine Ratio 26.7 H (14-18) Glucose 126 H (80-115) mg/dL POC Glucose (80-115) mg/dL Lactic Acid 0.6 (0.4-2.0) mmol/L Calcium 8.6 (8.5-10.1) mg/dL Magnesium 2.4 (1.8-2.4) mg/dl C-Reactive Protein 17.7 H* (<1.0) mg/dL NT-Pro-B Natriuret Pep 1110 H (0-125) pg/mL 03/02/18 03/02/18 Range/Units 11:09 17:04 WBC (4.23-9.07) K/mm3 RBC (4.63-6.08) M/mm3 Hgb (13.7-17.5) gm/L Hct (40.1-51.0) % MCV (79.0-92.2) fl MCH (25.7-32.2) pg MCHC (32.2-35.5) g/dl RDW Std Deviation (35.1-43.9) fL Plt Count (163-337) K/mm3 MPV (9.4-12.3) fl Neut % (Auto) (34.0-67.9) % Lymph % (Auto) (21.8-53.1) % [place] % (Auto) (5.3-12.2) % Eos % (Auto) (0.8-7.0) Baso % (Auto) (0.1-1.2) % Neut # (Auto) (1.78-5.38) K/mm3 Lymph # (Auto) (1.32-3.57) K/mm3 [place] # (Auto) (0.30-0.82) K/mm3 Eos # (Auto) (0.04-0.54) K/mm3 Baso # (Auto) (0.01-0.08) K/mm3 Manual Slide Review Sodium (136-145) mEq/L Potassium (3.5-5.1) mEq/L Chloride (98-107) mEq/L Carbon Dioxide (21-32) mEq/L Anion Gap (5-15) BUN (7-18) mg/dL Creatinine (0.7-1.3) mg/dL Est Cr Clr Drug Dosing mL/min Estimated GFR (MDRD) (>60) mL/min BUN/Creatinine Ratio (14-18) Glucose (80-115) mg/dL POC Glucose 129 H 136 H (80-115) mg/dL Lactic Acid (0.4-2.0) mmol/L Calcium (8.5-10.1) mg/dL Magnesium (1.8-2.4) mg/dl C-Reactive Protein (<1.0) mg/dL NT-Pro-B Natriuret Pep (0-125) pg/mL Jr Results Last 24 Hours: Microbiology 02/28/18 19:20 Wound Culture - Preliminary Foot, Right Pseudomonas Aeruginosa 02/28/18 11:14 Aerobic Blood Culture - Preliminary Blood - Venous NO GROWTH AFTER 2 DAYS Anaerobic Blood Culture - Preliminary NO GROWTH AFTER 2 DAYS 02/28/18 11:06 Aerobic Blood Culture - Preliminary Blood - Venous - Lab Draw NO GROWTH AFTER 2 DAYS Anaerobic Blood Culture - Preliminary NO GROWTH AFTER 2 DAYS Med Orders - Current: Current Medications Acetaminophen (Tylenol) 650 mg PO Q4H PRN PRN Reason: Pain/Fever Last Admin: 03/02/18 17:36 Dose: 650 mg Hydrocodone Bitart/Acetaminophen ([place] 325-5 Mg) 1 tab PO Q6H PRN PRN Reason: Pain (moderate 4-6) Aspirin (Halfprin) 81 mg PO DAILY ON LICENSE OF [facility] Last Admin: 03/02/18 08:01 Dose: 81 mg Citalopram Hydrobromide (Celexa) 20 mg PO BEDTIME ON LICENSE OF [facility] Last Admin: 03/01/18 20:18 Dose: 20 mg Clopidogrel Bisulfate (Plavix) 75 mg PO DAILY ON LICENSE OF [facility] Last Admin: 03/02/18 08:01 Dose: 75 mg Dextrose/Water (Dextrose 50% In Water) 50 ml IVPUSH ASDIRECTED PRN PRN Reason: Hypoglycemia Docusate Sodium (Colace) 100 mg PO BID PRN PRN Reason: Constipation Duloxetine HCl (Cymbalta) 30 mg PO DAILY ON LICENSE OF [facility] Last Admin: 03/02/18 08:01 Dose: 30 mg Gabapentin (Neurontin) 600 mg PO TID ON LICENSE OF [facility] Heparin Sodium (Porcine) (Heparin Sodium) 5,000 units SUBCUT Q8H ON LICENSE OF [facility] Last Admin: 03/02/18 17:35 Dose: 5,000 units Hydralazine HCl (Apresoline) 20 mg IVPUSH Q6H PRN PRN Reason: Hypertension Last Admin: 03/02/18 13:15 Dose: 20 mg Levofloxacin/Dextrose 750 mg/ (Premix) 150 mls @ 100 mls/hr IV Q48H ON LICENSE OF [facility] Last Admin: 03/01/18 18:18 Dose: 100 mls/hr Vancomycin HCl 1 gm/Vancomycin HCl 250 mg/ Sodium Chloride 500 mls @ 333.025 mls/hr IV Q24H ON LICENSE OF [facility] Last Admin: 03/02/18 17:35 Dose: 333.025 mls/hr Cefepime HCl 2 gm/ Premix 50 mls @ 100 mls/hr IV Q12H ON LICENSE OF [facility] Insulin Glargine (Lantus Solostar) 15 units SUBCUT BID ON LICENSE OF [facility] Last Admin: 03/02/18 08:03 Dose: 15 units Insulin Human Lispro (Humalog) 0 unit SUBCUT QIDACANDBED ON LICENSE OF [facility]; Protocol Last Admin: 03/02/18 17:53 Dose: Not Given Metformin HCl (Glucophage) 1,000 mg PO BID ON LICENSE OF [facility] Last Admin: 03/02/18 08:01 Dose: 1,000 mg Nystatin (Nystatin Crm) 0 gm TOP BID ON LICENSE OF [facility] Last Admin: 03/02/18 08:03 Dose: 1 applic Pregabalin (Lyrica) 50 mg PO TID ON LICENSE OF [facility] Last Admin: 03/02/18 14:35 Dose: 50 mg Quetiapine Fumarate (Seroquel) 250 mg PO BEDTIME ON LICENSE OF [facility] Saccharomyces Boulardii (Florastor) 500 mg PO DAILY ON LICENSE OF [facility] Last Admin: 03/02/18 08:01 Dose: 500 mg Simvastatin (Zocor) 20 mg PO BEDTIME ON LICENSE OF [facility] Last Admin: 03/01/18 20:18 Dose: 20 mg Sodium Chloride (Saline Flush) 10 ml FLUSH ASDIRECTED PRN PRN Reason: Keep Vein Open Last Admin: 02/28/18 10:45 Dose: 10 ml Sodium Chloride ([place] Nasal [place]) 0 ml FILIPPO BID PRN PRN Reason: Nasal Dryness Discontinued Medications Furosemide (Lasix) 40 mg IVPUSH ONETIME ONE Stop: 02/28/18 21:31 Last Admin: 02/28/18 21:04 Dose: 40 mg Gabapentin (Neurontin) 300 mg PO BID ON LICENSE OF [facility] Last Admin: 03/02/18 08:00 Dose: 300 mg Hydromorphone HCl (Dilaudid) 2 mg PO BEDTIME ON LICENSE OF [facility] Last Admin: 03/01/18 20:58 Dose: 2 mg Hydromorphone HCl (Dilaudid) 2 mg IVPUSH ONETIME ONE Stop: 03/02/18 19:03 Ceftriaxone Sodium 2 gm/ (Sodium Chloride) 100 mls @ 100 mls/hr IV ONETIME ONE Stop: 02/28/18 11:25 Last Admin: 02/28/18 10:46 Dose: 100 mls/hr Sodium Chloride (Normal Saline) Confirm Administered Dose 500 mls @ as directed .ROUTE .STK-MED ONE Stop: 02/28/18 14:00 Last Admin: 02/28/18 14:10 Dose: Not Given Clindamycin Phosphate 900 mg/ (Sodium Chloride) 106 mls @ 100 mls/hr IV Q6H ON LICENSE OF [facility] Last Admin: 03/01/18 17:09 Dose: 100 mls/hr Sodium Chloride (Normal Saline) Confirm Administered Dose 100 mls @ as directed .ROUTE .STK-MED ONE Stop: 02/28/18 20:50 Last Admin: 02/28/18 21:00 Dose: Not Given Sodium Chloride (Normal Saline) 100 mls @ 100 mls/hr IV ASDIRECTED MAKAYLA Stop: 03/01/18 00:03 Last Admin: 02/28/18 21:14 Dose: 100 mls/hr Vancomycin HCl 1 gm/Vancomycin HCl 500 mg/ Sodium Chloride 500 mls @ 333.025 mls/hr IV ONETIME ONE Stop: 03/01/18 19:00 Last Admin: 03/01/18 18:20 Dose: 333.025 mls/hr Lorazepam (Ativan) 0.25 mg PO BEDTIME ON LICENSE OF [facility] Last Admin: 03/01/18 20:19 Dose: 0.25 mg Naloxone HCl (Narcan) 2 mg IVPUSH ONETIME ONE Stop: 02/28/18 12:31 Last Admin: 02/28/18 13:30 Dose: 2 mg Quetiapine Fumarate (Seroquel) 250 mg PO DAILY ON LICENSE OF [facility] Last Admin: 03/01/18 10:06 Dose: 250 mg Vancomycin HCl (Pharmacy To Dose - Vancomycin) 0 dose .XX ASDIRECTED PRN PRN Reason: RX TO DOSE VANCO - Problem List & Annotations (1) Morbid (severe) obesity due to excess calories SNOMED Code(s): 877822983 Code(s): E66.01 - MORBID (SEVERE) OBESITY DUE TO EXCESS CALORIES Status: Chronic Current Visit: Yes (2) Diabetes mellitus SNOMED Code(s): 54378881 Code(s): E11.9 - TYPE 2 DIABETES MELLITUS WITHOUT COMPLICATIONS Status: Chronic Current Visit: Yes (3) Narcotic overdose SNOMED Code(s): 641541968 Code(s): T40.601A - POISONING BY UNSP NARCOTICS, ACCIDENTAL, INIT Status: Acute Current Visit: Yes (4) Anemia SNOMED Code(s): 338076709 Code(s): D64.9 - ANEMIA, UNSPECIFIED Status: Acute Current Visit: Yes Qualifiers: Anemia type: other cause Other causes of anemia: other cause, not classified Qualified Code(s): D64.89 - Other specified anemias (5) Aspiration pneumonia SNOMED Code(s): 566882338 Code(s): J69.0 - PNEUMONITIS DUE TO INHALATION OF FOOD AND VOMIT Status: Acute Current Visit: Yes Qualifiers: Aspiration pneumonia type: unspecified Laterality: right Lung location: middle lobe of lung Qualified Code(s): J69.0 - Pneumonitis due to inhalation of food and vomit (6) Hypercarbia SNOMED Code(s): 03987988 Code(s): R06.89 - OTHER ABNORMALITIES OF BREATHING Status: Acute Current Visit: Yes (7) Hypoxia SNOMED Code(s): 620887408 Code(s): R09.02 - HYPOXEMIA Status: Acute Current Visit: Yes (8) Renal insufficiency SNOMED Code(s): 291324269, 436027810 Code(s): N28.9 - DISORDER OF KIDNEY AND URETER, UNSPECIFIED Status: Acute Current Visit: Yes - My Orders Last 24 Hours: My Active Orders 03/01/18 20:32 hydrALAZINE [Apresoline] 20 mg IVPUSH Q6H PRN 03/01/18 20:34 Acetaminophen/HYDROcodone [[place] 325-5 MG] 1 tab PO Q6H PRN 03/02/18 09:39 Patient Status [ADT] Routine 03/02/18 16:23 Up to Chair [RC] ASDIRECTED 03/02/18 21:00 Gabapentin [Neurontin] 600 mg PO TID QUEtiapine [SEROquel] 250 mg PO BEDTIME 03/03/18 05:00 BMP [BASIC METABOLIC PANEL,BMP] [CHEM] DAILY CBC WITH AUTO DIFF [HEME] DAILY CRP [C-REACTIVE PROTEIN] [CHEM] DAILY LACTIC ACID [CHEM] DAILY MAGNESIUM [CHEM] DAILY 03/03/18 08:00 CXR [Chest 1V Frontal] [CR] DAILY 03/03/18 17:30 VANCOMYCIN TROUGH [CHEM] Timed 03/04/18 05:00 BMP [BASIC METABOLIC PANEL,BMP] [CHEM] DAILY CBC WITH AUTO DIFF [HEME] DAILY CRP [C-REACTIVE PROTEIN] [CHEM] DAILY LACTIC ACID [CHEM] DAILY MAGNESIUM [CHEM] DAILY 03/04/18 07:00 CBC W/O DIFF,HEMOGRAM [HEME] MOTH@0700 03/08/18 07:00 CBC W/O DIFF,HEMOGRAM [HEME] MOTH@0700 03/11/18 07:00 CBC W/O DIFF,HEMOGRAM [HEME] MOTH@00 03/15/18 07:00 CBC W/O DIFF,HEMOGRAM [HEME] MOTH@00 03/18/18 07:00 CBC W/O DIFF,HEMOGRAM [HEME] MOTH@699 - Plan Plan:: Patient was seen and examined; agree with assessment and plan. Adjustment of IV ATBs with C/S when available.
[2018-03-02] MEDS: Gabapentin 300 MG Cap PO SCH ×2 (08:00→20:31)
[2018-03-02] MEDS: Acetaminophen 325 MG Tab PO PRN ×2 (08:00→17:36)
[2018-03-02] MEDS: Pregabalin 25 MG Cap PO SCH ×3 (08:01→20:30)
[2018-03-02] MEDS: Saccharomyces Boulardii (Probiotic) 250 MG Cap PO SCH (08:01)
[2018-03-02] MEDS: DULoxetine 30 MG Cap PO SCH (08:01)
[2018-03-02] MEDS: metFORMIN 500 MG Tab PO SCH ×2 (08:01→20:30)
[2018-03-02] MEDS: Aspirin 81 MG Tab.EC PO SCH (08:01)
[2018-03-02] MEDS: Clopidogrel 75 MG Tab PO SCH (08:01)
[2018-03-02] MEDS: Nystatin Crm 30 GM Tube TOP SCH ×2 (08:03→20:34)
[2018-03-02] MEDS: Insulin Glargine,Human Rec. Analog 100 Units/ML 3 ML Pen SUBCUT SCH ×2 (08:03→20:37)
--- NOTE | 2018-03-02 08:18 | CR ---
Chest: Portable view of the chest was obtained. Comparison: Previous chest x-ray of 03/01/18. Heart is enlarged. Pulmonary vessels are felt to be slightly congested which may be chronic. Continuing consolidation is seen within the right lung base. Lungs otherwise are clear. Bony structures are grossly intact. Impression: 1. Findings as noted above. No appreciable change from previous study is seen. Diagnostic code #3
[2018-03-02] MEDS: hydrALAZINE 20 MG/ML SDV IVPUSH PRN ×2 (13:15→22:24)
[2018-03-02] MEDS ORDERED: Vancomycin 1 GM, Vancomycin 250 MG in Sodium Chloride 0.9% 500 ML IV SCH (18:00)
[2018-03-02] MEDS ORDERED: HYDROmorphone 1 MG/ML Syringe IVPUSH ONE (19:02)
[2018-03-02] MEDS: Cefepime 2 GM in Premix Bag 1 BAG IV SCH (19:59)
[2018-03-02] MEDS: Citalopram 20 MG Tab PO SCH (20:30)
[2018-03-02] MEDS: Simvastatin 20 MG Tab PO SCH (20:31)
[2018-03-02] MEDS ORDERED: Acetaminophen/HYDROcodone 325-5 MG Tab PO SCH (21:00)
[2018-03-02] MEDS ORDERED: QUEtiapine 100 MG Tab PO SCH (21:00)
[2018-03-02] MEDS: QUEtiapine 100 MG Tab PO SCH ×2 (22:24→22:27)
[2018-03-03] MEDS: Heparin Sodium 5,000 Units/ML Vial SUBCUT SCH ×3 (03:59→18:07)
[2018-03-03] MEDS: Cefepime 2 GM in Premix Bag 1 BAG IV SCH ×2 (06:18→18:05)
[2018-03-03] MEDS: Insulin Lispro 100 Unit/ML 3 ML KwikPen SUBCUT SCH ×4 (06:22→21:41)
[2018-03-03] MEDS: Saccharomyces Boulardii (Probiotic) 250 MG Cap PO SCH (09:08)
[2018-03-03] MEDS: metFORMIN 500 MG Tab PO SCH ×2 (09:09→20:36)
[2018-03-03] MEDS: Pregabalin 25 MG Cap PO SCH ×3 (09:09→20:35)
[2018-03-03] MEDS: Clopidogrel 75 MG Tab PO SCH (09:09)
[2018-03-03] MEDS: Aspirin 81 MG Tab.EC PO SCH (09:09)
[2018-03-03] MEDS: DULoxetine 30 MG Cap PO SCH (09:09)
[2018-03-03] MEDS: Gabapentin 300 MG Cap PO SCH ×3 (09:10→20:35)
[2018-03-03] MEDS: Insulin Glargine,Human Rec. Analog 100 Units/ML 3 ML Pen SUBCUT SCH ×2 (09:10→20:37)
[2018-03-03] MEDS: Acetaminophen/HYDROcodone 325-5 MG Tab PO SCH ×2 (09:10→20:34)
--- NOTE | 2018-03-03 09:17 | CR ---
Chest: Frontal view of the chest was obtained. Comparison: Prior chest x-ray of 03/02/18. Improved appearance of the right base is seen from prior exam. Minimal parenchymal density remains. Heart is enlarged. Pulmonary vessels remain slightly congested. Bony structures show degenerative change within the left shoulder. Impression: 1. Improved appearance of the right base from previous study. 2. Cardiomegaly and mild chronic pulmonary vascular congestion is again noted. Diagnostic code #3
[2018-03-03] MEDS: Nystatin Crm 30 GM Tube TOP SCH ×2 (10:00→20:37)
--- NOTE | 2018-03-03 10:59 | PCM.PN ---
<Rosemary Hsu - Last Filed: 03/03/18 14:28> - General Info Date of Service: 03/03/18 Admission Dx/Problem (Free Text): Admission Diagnosis/Problem Admission Diagnosis/Problem Hypoxia Subjective Update: Kervin reports feeling better today. He had some behavioral issues with the staff last night, but this has significantly improved and he seems to be doing well with staff this morning. He was able to get some sleep last night and reports that he is slightly less short of breath but still coughing. He had a shower this morning and has been sitting up in the chair. - Review of Systems General: Reports: No Symptoms HEENT: Reports: Glasses, Headaches. Denies: Dysphasia, Ear Pain, Eye Pain, Sore Throat, Visual Changes Pulmonary: Reports: Shortness of Breath (Improving), Cough. Denies: Pleuritic Chest Pain, Sputum, Hemoptysis Cardiovascular: Reports: No Symptoms Gastrointestinal: Reports: No Symptoms Genitourinary: Reports: No Symptoms Musculoskeletal: Reports: Shoulder Pain (Left), Joint Pain (Left hip and knee) Skin: Reports: No Symptoms Neurological: Reports: Headache, Numbness (To hands and feet bilaterally). Denies: Confusion, Dizziness, Seizure, Syncope, Tremors, Trouble Speaking, Change in Speech Psychiatric: Reports: No Symptoms - Patient Data Vitals - Most Recent: Last Vital Signs Temp 98.2 F 03/03/18 10:48 Pulse 76 03/03/18 10:48 Resp 18 03/03/18 10:48 BP 115/62 03/03/18 10:48 Pulse Ox 95 03/03/18 10:48 Weight - Most Recent: 136.985 kg I&O - Last 24 Hours: Intake & Output 03/02/18 03/03/18 03/03/18 22:59 06:59 14:59 Intake Total 1060 750 180 Balance 1060 750 180 Lab Results Last 24 Hours: Laboratory Results - last 24 hr 03/02/18 03/02/18 03/02/18 Range/Units 11:09 17:04 20:37 WBC (4.23-9.07) K/mm3 RBC (4.63-6.08) M/mm3 Hgb (13.7-17.5) gm/L Hct (40.1-51.0) % MCV (79.0-92.2) fl MCH (25.7-32.2) pg MCHC (32.2-35.5) g/dl RDW Std Deviation (35.1-43.9) fL Plt Count (163-337) K/mm3 MPV (9.4-12.3) fl Neut % (Auto) (34.0-67.9) % Lymph % (Auto) (21.8-53.1) % [place] % (Auto) (5.3-12.2) % Eos % (Auto) (0.8-7.0) Baso % (Auto) (0.1-1.2) % Neut # (Auto) (1.78-5.38) K/mm3 Lymph # (Auto) (1.32-3.57) K/mm3 [place] # (Auto) (0.30-0.82) K/mm3 Eos # (Auto) (0.04-0.54) K/mm3 Baso # (Auto) (0.01-0.08) K/mm3 Manual Slide Review Sodium (136-145) mEq/L Potassium (3.5-5.1) mEq/L Chloride (98-107) mEq/L Carbon Dioxide (21-32) mEq/L Anion Gap (5-15) BUN (7-18) mg/dL Creatinine (0.7-1.3) mg/dL Est Cr Clr Drug Dosing mL/min Estimated GFR (MDRD) (>60) mL/min BUN/Creatinine Ratio (14-18) Glucose (80-115) mg/dL POC Glucose 129 H 136 H 139 H (80-115) mg/dL Lactic Acid (0.4-2.0) mmol/L Calcium (8.5-10.1) mg/dL Magnesium (1.8-2.4) mg/dl C-Reactive Protein (<1.0) mg/dL 03/03/18 03/03/18 03/03/18 Range/Units 05:01 05:01 05:01 WBC 7.15 (4.23-9.07) K/mm3 RBC 3.61 L (4.63-6.08) M/mm3 Hgb 10.0 L (13.7-17.5) gm/L Hct 34.1 L (40.1-51.0) % MCV 94.5 H (79.0-92.2) fl MCH 27.7 (25.7-32.2) pg MCHC 29.3 L (32.2-35.5) g/dl RDW Std Deviation 56.2 H (35.1-43.9) fL Plt Count 231 (163-337) K/mm3 MPV 10.4 (9.4-12.3) fl Neut % (Auto) 71.1 H (34.0-67.9) % Lymph % (Auto) 13.3 L (21.8-53.1) % [place] % (Auto) 12.2 (5.3-12.2) % Eos % (Auto) 2.9 (0.8-7.0) Baso % (Auto) 0.1 (0.1-1.2) % Neut # (Auto) 5.08 (1.78-5.38) K/mm3 Lymph # (Auto) 0.95 L (1.32-3.57) K/mm3 [place] # (Auto) 0.87 H (0.30-0.82) K/mm3 Eos # (Auto) 0.21 (0.04-0.54) K/mm3 Baso # (Auto) 0.01 (0.01-0.08) K/mm3 Manual Slide Review Abnormal smear Sodium 140 (136-145) mEq/L Potassium 4.8 (3.5-5.1) mEq/L Chloride 106 (98-107) mEq/L Carbon Dioxide 26 (21-32) mEq/L Anion Gap 12.8 (5-15) BUN 36 H (7-18) mg/dL Creatinine 1.9 H (0.7-1.3) mg/dL Est Cr Clr Drug Dosing 26.68 mL/min Estimated GFR (MDRD) 36 (>60) mL/min BUN/Creatinine Ratio 18.9 H (14-18) Glucose 140 H (80-115) mg/dL POC Glucose (80-115) mg/dL Lactic Acid 0.6 (0.4-2.0) mmol/L Calcium 8.6 (8.5-10.1) mg/dL Magnesium 2.4 (1.8-2.4) mg/dl C-Reactive Protein 11.7 H* (<1.0) mg/dL 03/03/18 Range/Units 06:12 WBC (4.23-9.07) K/mm3 RBC (4.63-6.08) M/mm3 Hgb (13.7-17.5) gm/L Hct (40.1-51.0) % MCV (79.0-92.2) fl MCH (25.7-32.2) pg MCHC (32.2-35.5) g/dl RDW Std Deviation (35.1-43.9) fL Plt Count (163-337) K/mm3 MPV (9.4-12.3) fl Neut % (Auto) (34.0-67.9) % Lymph % (Auto) (21.8-53.1) % [place] % (Auto) (5.3-12.2) % Eos % (Auto) (0.8-7.0) Baso % (Auto) (0.1-1.2) % Neut # (Auto) (1.78-5.38) K/mm3 Lymph # (Auto) (1.32-3.57) K/mm3 [place] # (Auto) (0.30-0.82) K/mm3 Eos # (Auto) (0.04-0.54) K/mm3 Baso # (Auto) (0.01-0.08) K/mm3 Manual Slide Review Sodium (136-145) mEq/L Potassium (3.5-5.1) mEq/L Chloride (98-107) mEq/L Carbon Dioxide (21-32) mEq/L Anion Gap (5-15) BUN (7-18) mg/dL Creatinine (0.7-1.3) mg/dL Est Cr Clr Drug Dosing mL/min Estimated GFR (MDRD) (>60) mL/min BUN/Creatinine Ratio (14-18) Glucose (80-115) mg/dL POC Glucose 134 H (80-115) mg/dL Lactic Acid (0.4-2.0) mmol/L Calcium (8.5-10.1) mg/dL Magnesium (1.8-2.4) mg/dl C-Reactive Protein (<1.0) mg/dL Jr Results Last 24 Hours: Microbiology 02/28/18 19:20 Wound Culture - Preliminary Foot, Right Pseudomonas Aeruginosa 02/28/18 11:14 Aerobic Blood Culture - Preliminary Blood - Venous NO GROWTH AFTER 2 DAYS Anaerobic Blood Culture - Preliminary NO GROWTH AFTER 2 DAYS 02/28/18 11:06 Aerobic Blood Culture - Preliminary Blood - Venous - Lab Draw NO GROWTH AFTER 2 DAYS Anaerobic Blood Culture - Preliminary NO GROWTH AFTER 2 DAYS Med Orders - Current: Current Medications Acetaminophen (Tylenol) 650 mg PO Q4H PRN PRN Reason: Pain/Fever Last Admin: 03/02/18 17:36 Dose: 650 mg Hydrocodone Bitart/Acetaminophen ([place] 325-5 Mg) 1 tab PO BID [facility] Last Admin: 03/03/18 09:10 Dose: 1 tab Aspirin (Halfprin) 81 mg PO DAILY [facility] Last Admin: 03/03/18 09:09 Dose: 81 mg Citalopram Hydrobromide (Celexa) 20 mg PO BEDTIME [facility] Last Admin: 03/02/18 20:30 Dose: 20 mg Clopidogrel Bisulfate (Plavix) 75 mg PO DAILY [facility] Last Admin: 03/03/18 09:09 Dose: 75 mg Dextrose/Water (Dextrose 50% In Water) 50 ml IVPUSH ASDIRECTED PRN PRN Reason: Hypoglycemia Docusate Sodium (Colace) 100 mg PO BID PRN PRN Reason: Constipation Duloxetine HCl (Cymbalta) 30 mg PO DAILY [facility] Last Admin: 03/03/18 09:09 Dose: 30 mg Gabapentin (Neurontin) 600 mg PO TID [facility] Last Admin: 03/03/18 09:10 Dose: 600 mg Heparin Sodium (Porcine) (Heparin Sodium) 5,000 units SUBCUT Q8H [facility] Last Admin: 03/03/18 09:09 Dose: 5,000 units Hydralazine HCl (Apresoline) 20 mg IVPUSH Q6H PRN PRN Reason: Hypertension Last Admin: 03/02/18 22:24 Dose: 20 mg Levofloxacin/Dextrose 750 mg/ (Premix) 150 mls @ 100 mls/hr IV Q48H [facility] Last Admin: 03/01/18 18:18 Dose: 100 mls/hr Vancomycin HCl 1 gm/Vancomycin HCl 250 mg/ Sodium Chloride 500 mls @ 333.025 mls/hr IV Q24H [facility] Last Admin: 03/02/18 17:35 Dose: 333.025 mls/hr Cefepime HCl 2 gm/ Premix 50 mls @ 100 mls/hr IV Q12H [facility] Last Admin: 03/03/18 06:18 Dose: 100 mls/hr Insulin Glargine (Lantus Solostar) 15 units SUBCUT BID [facility] Last Admin: 03/03/18 09:10 Dose: 15 units Insulin Human Lispro (Humalog) 0 unit SUBCUT QIDACANDBED [facility]; Protocol Last Admin: 03/03/18 10:51 Dose: Not Given Metformin HCl (Glucophage) 1,000 mg PO BID [facility] Last Admin: 03/03/18 09:09 Dose: 1,000 mg Nystatin (Nystatin Crm) 0 gm TOP BID [facility] Last Admin: 03/03/18 10:00 Dose: 1 applic Pregabalin (Lyrica) 50 mg PO TID [facility] Last Admin: 03/03/18 09:09 Dose: 50 mg Quetiapine Fumarate (Seroquel) 350 mg PO BEDTIME [facility] Last Admin: 03/02/18 22:24 Dose: 100 mg Saccharomyces Boulardii (Florastor) 500 mg PO DAILY [facility] Last Admin: 03/03/18 09:08 Dose: 500 mg Simvastatin (Zocor) 20 mg PO BEDTIME [facility] Last Admin: 03/02/18 20:31 Dose: 20 mg Sodium Chloride (Saline Flush) 10 ml FLUSH ASDIRECTED PRN PRN Reason: Keep Vein Open Last Admin: 02/28/18 10:45 Dose: 10 ml Sodium Chloride ([place] Nasal [place]) 0 ml FILIPPO BID PRN PRN Reason: Nasal Dryness Discontinued Medications Hydrocodone Bitart/Acetaminophen ([place] 325-5 Mg) 1 tab PO Q6H PRN PRN Reason: Pain (moderate 4-6) Hydrocodone Bitart/Acetaminophen ([place] 325-5 Mg) 1 tab PO BID [facility] Furosemide (Lasix) 40 mg IVPUSH ONETIME ONE Stop: 02/28/18 21:31 Last Admin: 02/28/18 21:04 Dose: 40 mg Gabapentin (Neurontin) 300 mg PO BID [facility] Last Admin: 03/02/18 08:00 Dose: 300 mg Hydromorphone HCl (Dilaudid) 2 mg PO BEDTIME [facility] Last Admin: 03/01/18 20:58 Dose: 2 mg Hydromorphone HCl (Dilaudid) 2 mg IVPUSH ONETIME ONE Stop: 03/02/18 19:03 Last Admin: 03/02/18 20:25 Dose: 1 mg Ceftriaxone Sodium 2 gm/ (Sodium Chloride) 100 mls @ 100 mls/hr IV ONETIME ONE Stop: 02/28/18 11:25 Last Admin: 02/28/18 10:46 Dose: 100 mls/hr Sodium Chloride (Normal Saline) Confirm Administered Dose 500 mls @ as directed .ROUTE .STK-MED ONE Stop: 02/28/18 14:00 Last Admin: 02/28/18 14:10 Dose: Not Given Clindamycin Phosphate 900 mg/ (Sodium Chloride) 106 mls @ 100 mls/hr IV Q6H [facility] Last Admin: 03/01/18 17:09 Dose: 100 mls/hr Sodium Chloride (Normal Saline) Confirm Administered Dose 100 mls @ as directed .ROUTE .K-MED ONE Stop: 02/28/18 20:50 Last Admin: 02/28/18 21:00 Dose: Not Given Sodium Chloride (Normal Saline) 100 mls @ 100 mls/hr IV ASDIRECTED MAKAYLA Stop: 03/01/18 00:03 Last Admin: 02/28/18 21:14 Dose: 100 mls/hr Vancomycin HCl 1 gm/Vancomycin HCl 500 mg/ Sodium Chloride 500 mls @ 333.025 mls/hr IV ONETIME ONE Stop: 03/01/18 19:00 Last Admin: 03/01/18 18:20 Dose: 333.025 mls/hr Lorazepam (Ativan) 0.25 mg PO BEDTIME [facility] Last Admin: 03/01/18 20:19 Dose: 0.25 mg Naloxone HCl (Narcan) 2 mg IVPUSH ONETIME ONE Stop: 02/28/18 12:31 Last Admin: 02/28/18 13:30 Dose: 2 mg Quetiapine Fumarate (Seroquel) 250 mg PO DAILY [facility] Last Admin: 03/02/18 22:27 Dose: Not Given Quetiapine Fumarate (Seroquel) 250 mg PO BEDTIME [facility] Last Admin: 03/02/18 20:31 Dose: 250 mg Vancomycin HCl (Pharmacy To Dose - Vancomycin) 0 dose .XX ASDIRECTED PRN PRN Reason: RX TO DOSE VANCO - Exam Quality Assessment: Supplemental Oxygen, DVT Prophylaxis General: Alert, Oriented, Cooperative HEENT: Pupils Equal, Pupils Reactive, EOMI, Mucous Membr. Moist/[place] Neck: Supple, Trachea Midline Lungs: Decreased Breath Sounds. No: Normal Respiratory Effort (Increased respiratory effort; improved from admission), Crackles, Rhonchi, Wheezing Cardiovascular: Regular Rate, Regular Rhythm GI/Abdominal Exam: Normal Bowel Sounds, Soft, Non-Tender (Male) Exam: Deferred Back Exam: Normal Inspection, Decreased Range of Motion Extremities: Non-Tender, No Pedal Edema, Slow Capillary Refill, Other (Scabs to lower legs, feet, and hands bilaterally) Peripheral Pulses: 2+: Carotid (L), Carotid (R), Radial (L), Radial (R), Posterior Tibial (L), Posterior Tibial (R) Skin: Warm, Dry Wound/Incisions: Dressing Dry and Intact (To right heel and left [place]man) Neurological: No New Focal Deficit Psy/Mental Status: Alert, Normal Affect, Normal Mood - Problem List Review Problem List Initiated/Reviewed/Updated: Yes - My Orders Last 24 Hours: My Active Orders 03/02/18 18:00 - Plan Plan:: Impression: Aspiration PNA, query HCAP * WBC 11.62 --> 9.20 --> 8.36 --> 7.15 * CRP 21.6 --> 17.7 --> 11.7 * Chest X-ray on admission showed increased density in the right mid and lower lung. Chest X-ray on 03/02 shows continuing consolidation of the right lung base. Chest X-ray today shows improvement in the right lung base with minimal parenchymal density remaining. * Mycoplasma IgM negative * He was started on clindamycin for aspiration pneumonia but switched to levoquin and vancomycin on 03/02. Due to his wound culture growing P.aeruginosa, he is now on levoquin and cefepime. Narcotic overdose, s/p Narcan 3 mg; query iatrogenic * Presented to ER with shortness of breath, hypoxemia, low BP, and vision changes which improved with narcan * Patient has hydrocodone BID at [place] Acute respiratory distress, resolved * Patient was requiring 3L O2 via nasal cannula on admission, is now on 1L Query JANY * Patient using BIPAP here; does not have at [place] Morbid obesity Acute/chronic wounds, assessment of R foot re:OM * R foot X-ray does not show definite signs of erosion * PT changed dressing today and nursing will take over * Culture grew Pseudomonoas aeruginosa Anemia, s/p 1 unit PRBCs * Hgb on admission 7.8 --> 10.7 --> 10.4 --> 10.0 Acute on chronic kidney failure * Creatinine 1.9 --> 1.7 --> 1.5 --> 1.9, BUN 36 * EGFR 36 --> 40 --> 47 --> 36 Diabetes Clarify mental health (query anxiety/depression/bipolar disorder) * History of alcohol, cannabis, and nicotine dependence * Previous diagnosis of schizoaffective disorder, bipolar disorder, and anxiety * Previously in the [facility]. Sukhi reports that he is gruff but manageable and do not want his medications changed. * Dr. Hall was consulted for his assessment Pain in left hip/knee/shoulder * Patient states this is chronic but worse in the last few weeks * Nursing to call Sukhi and see if any assessment was done Plan: Med surg with tele Keep O2 sat > 92% MRI re: right heel, chronic infection; will order once GFR improves IVF as needed Wound care PRBCs, keep Hgb>9.0 Adjust Insulin for ADA 1800 patricia Accurate I/Os Home meds Daily Labs DVT/GI prophylaxis Consult PT/OT/CM Patient needs aggressive antibiotic treatment for P. aeruginosa infection. He will get 5 days of IV levoquin and cefepime. adult education manager to check if Sukhi can do this treatment for him. Recommend sleep study to assess for sleep apnea out patient Patient reports desiring an eye exam outpatient. Says his last was over a year ago and he thinks his vision is declining. Code status: DNR/DNI PCP: Dr. Erickson <Lexi Guadarrama - Last Filed: 03/03/18 19:17> - Patient Data Vitals - Most Recent: Last Vital Signs Temp 36.7 C 03/03/18 15:41 Pulse 75 03/03/18 15:41 Resp 18 03/03/18 15:41 BP 150/65 H 03/03/18 15:41 Pulse Ox 92 L 03/03/18 15:41 I&O - Last 24 Hours: Intake & Output 03/03/18 03/03/18 03/03/18 06:59 14:59 22:59 Intake Total 618 762 1099 Balance 838 055 9449 Lab Results Last 24 Hours: Laboratory Results - last 24 hr 03/02/18 03/03/18 03/03/18 Range/Units 20:37 05:01 05:01 WBC 7.15 (4.23-9.07) K/mm3 RBC 3.61 L (4.63-6.08) M/mm3 Hgb 10.0 L (13.7-17.5) gm/L Hct 34.1 L (40.1-51.0) % MCV 94.5 H (79.0-92.2) fl MCH 27.7 (25.7-32.2) pg MCHC 29.3 L (32.2-35.5) g/dl RDW Std Deviation 56.2 H (35.1-43.9) fL Plt Count 231 (163-337) K/mm3 MPV 10.4 (9.4-12.3) fl Neut % (Auto) 71.1 H (34.0-67.9) % Lymph % (Auto) 13.3 L (21.8-53.1) % [place] % (Auto) 12.2 (5.3-12.2) % Eos % (Auto) 2.9 (0.8-7.0) Baso % (Auto) 0.1 (0.1-1.2) % Neut # (Auto) 5.08 (1.78-5.38) K/mm3 Lymph # (Auto) 0.95 L (1.32-3.57) K/mm3 [place] # (Auto) 0.87 H (0.30-0.82) K/mm3 Eos # (Auto) 0.21 (0.04-0.54) K/mm3 Baso # (Auto) 0.01 (0.01-0.08) K/mm3 Manual Slide Review Abnormal smear Sodium 140 (136-145) mEq/L Potassium 4.8 (3.5-5.1) mEq/L Chloride 106 (98-107) mEq/L Carbon Dioxide 26 (21-32) mEq/L Anion Gap 12.8 (5-15) BUN 36 H (7-18) mg/dL Creatinine 1.9 H (0.7-1.3) mg/dL Est Cr Clr Drug Dosing 26.68 mL/min Estimated GFR (MDRD) 36 (>60) mL/min BUN/Creatinine Ratio 18.9 H (14-18) Glucose 140 H (80-115) mg/dL POC Glucose 139 H (80-115) mg/dL Lactic Acid (0.4-2.0) mmol/L Calcium 8.6 (8.5-10.1) mg/dL Magnesium 2.4 (1.8-2.4) mg/dl C-Reactive Protein 11.7 H* (<1.0) mg/dL 03/03/18 03/03/18 03/03/18 Range/Units 05:01 06:12 10:46 WBC (4.23-9.07) K/mm3 RBC (4.63-6.08) M/mm3 Hgb (13.7-17.5) gm/L Hct (40.1-51.0) % MCV (79.0-92.2) fl MCH (25.7-32.2) pg MCHC (32.2-35.5) g/dl RDW Std Deviation (35.1-43.9) fL Plt Count (163-337) K/mm3 MPV (9.4-12.3) fl Neut % (Auto) (34.0-67.9) % Lymph % (Auto) (21.8-53.1) % [place] % (Auto) (5.3-12.2) % Eos % (Auto) (0.8-7.0) Baso % (Auto) (0.1-1.2) % Neut # (Auto) (1.78-5.38) K/mm3 Lymph # (Auto) (1.32-3.57) K/mm3 [place] # (Auto) (0.30-0.82) K/mm3 Eos # (Auto) (0.04-0.54) K/mm3 Baso # (Auto) (0.01-0.08) K/mm3 Manual Slide Review Sodium (136-145) mEq/L Potassium (3.5-5.1) mEq/L Chloride (98-107) mEq/L Carbon Dioxide (21-32) mEq/L Anion Gap (5-15) BUN (7-18) mg/dL Creatinine (0.7-1.3) mg/dL Est Cr Clr Drug Dosing mL/min Estimated GFR (MDRD) (>60) mL/min BUN/Creatinine Ratio (14-18) Glucose (80-115) mg/dL POC Glucose 134 H 148 H (80-115) mg/dL Lactic Acid 0.6 (0.4-2.0) mmol/L Calcium (8.5-10.1) mg/dL Magnesium (1.8-2.4) mg/dl C-Reactive Protein (<1.0) mg/dL 03/03/18 Range/Units 16:21 WBC (4.23-9.07) K/mm3 RBC (4.63-6.08) M/mm3 Hgb (13.7-17.5) gm/L Hct (40.1-51.0) % MCV (79.0-92.2) fl MCH (25.7-32.2) pg MCHC (32.2-35.5) g/dl RDW Std Deviation (35.1-43.9) fL Plt Count (163-337) K/mm3 MPV (9.4-12.3) fl Neut % (Auto) (34.0-67.9) % Lymph % (Auto) (21.8-53.1) % [place] % (Auto) (5.3-12.2) % Eos % (Auto) (0.8-7.0) Baso % (Auto) (0.1-1.2) % Neut # (Auto) (1.78-5.38) K/mm3 Lymph # (Auto) (1.32-3.57) K/mm3 [place] # (Auto) (0.30-0.82) K/mm3 Eos # (Auto) (0.04-0.54) K/mm3 Baso # (Auto) (0.01-0.08) K/mm3 Manual Slide Review Sodium (136-145) mEq/L Potassium (3.5-5.1) mEq/L Chloride (98-107) mEq/L Carbon Dioxide (21-32) mEq/L Anion Gap (5-15) BUN (7-18) mg/dL Creatinine (0.7-1.3) mg/dL Est Cr Clr Drug Dosing mL/min Estimated GFR (MDRD) (>60) mL/min BUN/Creatinine Ratio (14-18) Glucose (80-115) mg/dL POC Glucose 99 (80-115) mg/dL Lactic Acid (0.4-2.0) mmol/L Calcium (8.5-10.1) mg/dL Magnesium (1.8-2.4) mg/dl C-Reactive Protein (<1.0) mg/dL Jr Results Last 24 Hours: Microbiology 02/28/18 19:20 Wound Culture - Final Foot, Right Pseudomonas Aeruginosa 02/28/18 11:14 Aerobic Blood Culture - Preliminary Blood - Venous NO GROWTH AFTER 3 DAYS Anaerobic Blood Culture - Preliminary NO GROWTH AFTER 3 DAYS 02/28/18 11:06 Aerobic Blood Culture - Preliminary Blood - Venous - Lab Draw NO GROWTH AFTER 3 DAYS Anaerobic Blood Culture - Preliminary NO GROWTH AFTER 3 DAYS Med Orders - Current: Current Medications Acetaminophen (Tylenol) 650 mg PO Q4H PRN PRN Reason: Pain/Fever Last Admin: 03/03/18 14:47 Dose: 650 mg Hydrocodone Bitart/Acetaminophen ([place] 325-5 Mg) 1 tab PO BID [facility] Last Admin: 03/03/18 09:10 Dose: 1 tab Aspirin (Halfprin) 81 mg PO DAILY [facility] Last Admin: 03/03/18 09:09 Dose: 81 mg Citalopram Hydrobromide (Celexa) 20 mg PO BEDTIME [facility] Last Admin: 03/02/18 20:30 Dose: 20 mg Clopidogrel Bisulfate (Plavix) 75 mg PO DAILY [facility] Last Admin: 03/03/18 09:09 Dose: 75 mg Dextrose/Water (Dextrose 50% In Water) 50 ml IVPUSH ASDIRECTED PRN PRN Reason: Hypoglycemia Docusate Sodium (Colace) 100 mg PO BID PRN PRN Reason: Constipation Duloxetine HCl (Cymbalta) 30 mg PO DAILY [facility] Last Admin: 03/03/18 09:09 Dose: 30 mg Gabapentin (Neurontin) 600 mg PO TID [facility] Last Admin: 03/03/18 14:47 Dose: 600 mg Heparin Sodium (Porcine) (Heparin Sodium) 5,000 units SUBCUT Q8H [facility] Last Admin: 03/03/18 18:07 Dose: 5,000 units Hydralazine HCl (Apresoline) 20 mg IVPUSH Q6H PRN PRN Reason: Hypertension Last Admin: 03/02/18 22:24 Dose: 20 mg Levofloxacin/Dextrose 750 mg/ (Premix) 150 mls @ 100 mls/hr IV Q48H [facility] Last Admin: 03/03/18 18:18 Dose: 100 mls/hr Cefepime HCl 2 gm/ Premix 50 mls @ 100 mls/hr IV Q12H [facility] Last Admin: 03/03/18 18:05 Dose: 100 mls/hr Insulin Glargine (Lantus Solostar) 15 units SUBCUT BID [facility] Last Admin: 03/03/18 09:10 Dose: 15 units Insulin Human Lispro (Humalog) 0 unit SUBCUT QIDACANDBED [facility]; Protocol Last Admin: 03/03/18 18:07 Dose: Not Given Metformin HCl (Glucophage) 1,000 mg PO BID [facility] Last Admin: 03/03/18 09:09 Dose: 1,000 mg Nystatin (Nystatin Crm) 0 gm TOP BID [facility] Last Admin: 03/03/18 10:00 Dose: 1 applic Pregabalin (Lyrica) 50 mg PO TID [facility] Last Admin: 03/03/18 14:47 Dose: 50 mg Quetiapine Fumarate (Seroquel) 350 mg PO BEDTIME [facility] Last Admin: 03/02/18 22:24 Dose: 100 mg Saccharomyces Boulardii (Florastor) 500 mg PO DAILY [facility] Last Admin: 03/03/18 09:08 Dose: 500 mg Simvastatin (Zocor) 20 mg PO BEDTIME [facility] Last Admin: 03/02/18 20:31 Dose: 20 mg Sodium Chloride (Saline Flush) 10 ml FLUSH ASDIRECTED PRN PRN Reason: Keep Vein Open Last Admin: 02/28/18 10:45 Dose: 10 ml Sodium Chloride ([place] Nasal [place]) 0 ml FILIPPO BID PRN PRN Reason: Nasal Dryness Discontinued Medications Hydrocodone Bitart/Acetaminophen ([place] 325-5 Mg) 1 tab PO Q6H PRN PRN Reason: Pain (moderate 4-6) Hydrocodone Bitart/Acetaminophen ([place] 325-5 Mg) 1 tab PO BID [facility] Furosemide (Lasix) 40 mg IVPUSH ONETIME ONE Stop: 02/28/18 21:31 Last Admin: 02/28/18 21:04 Dose: 40 mg Gabapentin (Neurontin) 300 mg PO BID [facility] Last Admin: 03/02/18 08:00 Dose: 300 mg Hydromorphone HCl (Dilaudid) 2 mg PO BEDTIME [facility] Last Admin: 03/01/18 20:58 Dose: 2 mg Hydromorphone HCl (Dilaudid) 2 mg IVPUSH ONETIME ONE Stop: 03/02/18 19:03 Last Admin: 03/02/18 20:25 Dose: 1 mg Ceftriaxone Sodium 2 gm/ (Sodium Chloride) 100 mls @ 100 mls/hr IV ONETIME ONE Stop: 02/28/18 11:25 Last Admin: 02/28/18 10:46 Dose: 100 mls/hr Sodium Chloride (Normal Saline) Confirm Administered Dose 500 mls @ as directed .ROUTE .STK-MED ONE Stop: 02/28/18 14:00 Last Admin: 02/28/18 14:10 Dose: Not Given Clindamycin Phosphate 900 mg/ (Sodium Chloride) 106 mls @ 100 mls/hr IV Q6H [facility] Last Admin: 03/01/18 17:09 Dose: 100 mls/hr Sodium Chloride (Normal Saline) Confirm Administered Dose 100 mls @ as directed .ROUTE .STK-MED ONE Stop: 02/28/18 20:50 Last Admin: 02/28/18 21:00 Dose: Not Given Sodium Chloride (Normal Saline) 100 mls @ 100 mls/hr IV ASDIRECTED [facility]KAYLA Stop: 03/01/18 00:03 Last Admin: 02/28/18 21:14 Dose: 100 mls/hr Vancomycin HCl 1 gm/Vancomycin HCl 500 mg/ Sodium Chloride 500 mls @ 333.025 mls/hr IV ONETIME ONE Stop: 03/01/18 19:00 Last Admin: 03/01/18 18:20 Dose: 333.025 mls/hr Vancomycin HCl 1 gm/Vancomycin HCl 250 mg/ Sodium Chloride 500 mls @ 333.025 mls/hr IV Q24H [facility] Last Admin: 03/02/18 17:35 Dose: 333.025 mls/hr Lorazepam (Ativan) 0.25 mg PO BEDTIME [facility] Last Admin: 03/01/18 20:19 Dose: 0.25 mg Naloxone HCl (Narcan) 2 mg IVPUSH ONETIME ONE Stop: 02/28/18 12:31 Last Admin: 02/28/18 13:30 Dose: 2 mg Quetiapine Fumarate (Seroquel) 250 mg PO DAILY [facility] Last Admin: 03/02/18 22:27 Dose: Not Given Quetiapine Fumarate (Seroquel) 250 mg PO BEDTIME [facility] Last Admin: 03/02/18 20:31 Dose: 250 mg Vancomycin HCl (Pharmacy To Dose - Vancomycin) 0 dose .XX ASDIRECTED PRN PRN Reason: RX TO DOSE VANCO - Problem List & Annotations (1) Morbid (severe) obesity due to excess calories SNOMED Code(s): 611789171 Code(s): E66.01 - MORBID (SEVERE) OBESITY DUE TO EXCESS CALORIES Status: Chronic Current Visit: Yes (2) Diabetes mellitus SNOMED Code(s): 38068150 Code(s): E11.9 - TYPE 2 DIABETES MELLITUS WITHOUT COMPLICATIONS Status: Chronic Current Visit: Yes (3) Narcotic overdose SNOMED Code(s): 522261786 Code(s): T40.601A - POISONING BY UNSP NARCOTICS, ACCIDENTAL, INIT Status: Acute Current Visit: Yes (4) Anemia SNOMED Code(s): 388889997 Code(s): D64.9 - ANEMIA, UNSPECIFIED Status: Acute Current Visit: Yes Qualifiers: Anemia type: other cause Other causes of anemia: other cause, not classified Qualified Code(s): D64.89 - Other specified anemias (5) Aspiration pneumonia SNOMED Code(s): 774643513 Code(s): J69.0 - PNEUMONITIS DUE TO INHALATION OF FOOD AND VOMIT Status: Acute Current Visit: Yes Qualifiers: Aspiration pneumonia type: unspecified Laterality: right Lung location: middle lobe of lung Qualified Code(s): J69.0 - Pneumonitis due to inhalation of food and vomit (6) Hypercarbia SNOMED Code(s): 35946481 Code(s): R06.89 - OTHER ABNORMALITIES OF BREATHING Status: Acute Current Visit: Yes (7) Hypoxia SNOMED Code(s): 293306464 Code(s): R09.02 - HYPOXEMIA Status: Acute Current Visit: Yes (8) Renal insufficiency SNOMED Code(s): 985288486, 037021245 Code(s): N28.9 - DISORDER OF KIDNEY AND URETER, UNSPECIFIED Status: Acute Current Visit: Yes - My Orders Last 24 Hours: My Active Orders 03/02/18 21:00 Gabapentin [Neurontin] 600 mg PO TID 03/04/18 05:00 BMP [BASIC METABOLIC PANEL,BMP] [CHEM] DAILY CBC WITH AUTO DIFF [HEME] DAILY CRP [C-REACTIVE PROTEIN] [CHEM] DAILY LACTIC ACID [CHEM] DAILY MAGNESIUM [CHEM] DAILY 03/04/18 07:00 CBC W/O DIFF,HEMOGRAM [HEME] MOTH@0700 03/08/18 07:00 CBC W/O DIFF,HEMOGRAM [HEME] MOTH@0700 03/11/18 07:00 CBC W/O DIFF,HEMOGRAM [HEME] MOTH@00 03/15/18 07:00 CBC W/O DIFF,HEMOGRAM [HEME] MOTH@00 03/18/18 07:00 CBC W/O DIFF,HEMOGRAM [HEME] MOTH@0700 - Plan Plan:: Patient has been seen and examined; agree with assessment and plan
[2018-03-03] MEDS: Acetaminophen 325 MG Tab PO PRN (14:47)
[2018-03-03] MEDS: Levofloxacin/Dextrose 5%-Water 750 MG in Premix Bag 1 BAG IV SCH (18:18)
[2018-03-03] MEDS: Simvastatin 20 MG Tab PO SCH (20:33)
[2018-03-03] MEDS: Citalopram 20 MG Tab PO SCH (20:35)
[2018-03-03] MEDS: QUEtiapine 100 MG Tab PO SCH (20:36)
[2018-03-04] MEDS: Heparin Sodium 5,000 Units/ML Vial SUBCUT SCH ×3 (02:12→17:19)
[2018-03-04] MEDS: Cefepime 2 GM in Premix Bag 1 BAG IV SCH ×3 (06:19→19:42)
[2018-03-04] MEDS: Insulin Lispro 100 Unit/ML 3 ML KwikPen SUBCUT SCH ×4 (06:59→21:11)
[2018-03-04] MEDS: Pregabalin 25 MG Cap PO SCH ×4 (08:04→21:08)
[2018-03-04] MEDS: metFORMIN 500 MG Tab PO SCH ×2 (08:04→21:09)
[2018-03-04] MEDS: Saccharomyces Boulardii (Probiotic) 250 MG Cap PO SCH (08:04)
[2018-03-04] MEDS: Aspirin 81 MG Tab.EC PO SCH (08:05)
[2018-03-04] MEDS: DULoxetine 30 MG Cap PO SCH (08:05)
[2018-03-04] MEDS: Gabapentin 300 MG Cap PO SCH ×4 (08:05→21:08)
[2018-03-04] MEDS: Acetaminophen/HYDROcodone 325-5 MG Tab PO SCH ×2 (08:05→21:09)
[2018-03-04] MEDS: Clopidogrel 75 MG Tab PO SCH (08:06)
[2018-03-04] MEDS: Nystatin Crm 30 GM Tube TOP SCH ×2 (08:06→21:11)
[2018-03-04] MEDS: Insulin Glargine,Human Rec. Analog 100 Units/ML 3 ML Pen SUBCUT SCH ×2 (08:06→21:10)
[2018-03-04] MEDS: hydrALAZINE 20 MG/ML SDV IVPUSH PRN ×2 (08:21→21:09)
--- NOTE | 2018-03-04 09:22 | PCM.PN ---
- General Info Date of Service: 03/04/18 Admission Dx/Problem (Free Text): Admission Diagnosis/Problem Admission Diagnosis/Problem Hypoxia Subjective Update: Kervin is doing well today. He was not on oxygen when I saw him but reports that it is hard for him to breathe unless he lays back. His O2 stats were in the low 90's when he is reminded to take deep breaths. He has been cooperative and pleasant to staff. - Review of Systems General: Reports: No Symptoms HEENT: Reports: Glasses, Other (Reports small amount of blood when he blew his nose this morning). Denies: Dysphasia, Ear Pain, Eye Pain Pulmonary: Reports: Shortness of Breath (Chronic; improved since admission), Cough. Denies: Pleuritic Chest Pain, Sputum, Hemoptysis Cardiovascular: Reports: No Symptoms Gastrointestinal: Reports: No Symptoms Genitourinary: Reports: No Symptoms Musculoskeletal: Reports: Shoulder Pain (Left), Joint Pain (Left knee and hip) Skin: Reports: No Symptoms Neurological: Reports: Numbness (To hands and feet bilaterally). Denies: Confusion, Dizziness, Seizure, Syncope, Tremors, Trouble Speaking, Change in Speech Psychiatric: Reports: No Symptoms - Patient Data Vitals - Most Recent: Last Vital Signs Temp 96.6 F 03/04/18 01:45 Pulse 81 03/04/18 01:45 Resp 18 03/04/18 01:45 BP 131/56 L 03/04/18 01:45 Pulse Ox 92 L 03/04/18 08:28 Weight - Most Recent: 308 lb I&O - Last 24 Hours: Intake & Output 03/03/18 03/04/18 03/04/18 22:59 06:59 14:59 Intake Total 1560 500 Balance 1560 500 Lab Results Last 24 Hours: Laboratory Results - last 24 hr 03/03/18 03/03/18 03/03/18 Range/Units 10:46 16:21 21:35 WBC (4.23-9.07) K/mm3 RBC (4.63-6.08) M/mm3 Hgb (13.7-17.5) gm/L Hct (40.1-51.0) % MCV (79.0-92.2) fl MCH (25.7-32.2) pg MCHC (32.2-35.5) g/dl RDW Std Deviation (35.1-43.9) fL Plt Count (163-337) K/mm3 MPV (9.4-12.3) fl Neut % (Auto) (34.0-67.9) % Lymph % (Auto) (21.8-53.1) % Nye % (Auto) (5.3-12.2) % Eos % (Auto) (0.8-7.0) Baso % (Auto) (0.1-1.2) % Neut # (Auto) (1.78-5.38) K/mm3 Lymph # (Auto) (1.32-3.57) K/mm3 Nye # (Auto) (0.30-0.82) K/mm3 Eos # (Auto) (0.04-0.54) K/mm3 Baso # (Auto) (0.01-0.08) K/mm3 Manual Slide Review Sodium (136-145) mEq/L Potassium (3.5-5.1) mEq/L Chloride (98-107) mEq/L Carbon Dioxide (21-32) mEq/L Anion Gap (5-15) BUN (7-18) mg/dL Creatinine (0.7-1.3) mg/dL Est Cr Clr Drug Dosing mL/min Estimated GFR (MDRD) (>60) mL/min BUN/Creatinine Ratio (14-18) Glucose (80-115) mg/dL POC Glucose 148 H 99 183 H (80-115) mg/dL Lactic Acid (0.4-2.0) mmol/L Calcium (8.5-10.1) mg/dL Magnesium (1.8-2.4) mg/dl C-Reactive Protein (<1.0) mg/dL NT-Pro-B Natriuret Pep (0-125) pg/mL 03/04/18 03/04/18 03/04/18 Range/Units 05:08 05:09 05:09 WBC 7.30 (4.23-9.07) K/mm3 RBC 3.61 L (4.63-6.08) M/mm3 Hgb 10.1 L (13.7-17.5) gm/L Hct 33.8 L (40.1-51.0) % MCV 93.6 H (79.0-92.2) fl MCH 28.0 (25.7-32.2) pg MCHC 29.9 L (32.2-35.5) g/dl RDW Std Deviation 55.9 H (35.1-43.9) fL Plt Count 226 (163-337) K/mm3 MPV 10.5 (9.4-12.3) fl Neut % (Auto) 70.8 H (34.0-67.9) % Lymph % (Auto) 14.2 L (21.8-53.1) % Nye % (Auto) 10.5 (5.3-12.2) % Eos % (Auto) 3.7 (0.8-7.0) Baso % (Auto) 0.4 (0.1-1.2) % Neut # (Auto) 5.16 (1.78-5.38) K/mm3 Lymph # (Auto) 1.04 L (1.32-3.57) K/mm3 Nye # (Auto) 0.77 (0.30-0.82) K/mm3 Eos # (Auto) 0.27 (0.04-0.54) K/mm3 Baso # (Auto) 0.03 (0.01-0.08) K/mm3 Manual Slide Review Abnormal smear Sodium 135 L (136-145) mEq/L Potassium 4.9 (3.5-5.1) mEq/L Chloride 102 (98-107) mEq/L Carbon Dioxide 25 (21-32) mEq/L Anion Gap 12.9 (5-15) BUN 50 H (7-18) mg/dL Creatinine 3.0 H (0.7-1.3) mg/dL Est Cr Clr Drug Dosing 16.90 mL/min Estimated GFR (MDRD) 21 (>60) mL/min BUN/Creatinine Ratio 16.7 (14-18) Glucose 111 (80-115) mg/dL POC Glucose 123 H (80-115) mg/dL Lactic Acid (0.4-2.0) mmol/L Calcium 8.3 L (8.5-10.1) mg/dL Magnesium 2.5 H (1.8-2.4) mg/dl C-Reactive Protein 8.0 H* (<1.0) mg/dL NT-Pro-B Natriuret Pep (0-125) pg/mL 03/04/18 03/04/18 Range/Units 05:09 05:09 WBC (4.23-9.07) K/mm3 RBC (4.63-6.08) M/mm3 Hgb (13.7-17.5) gm/L Hct (40.1-51.0) % MCV (79.0-92.2) fl MCH (25.7-32.2) pg MCHC (32.2-35.5) g/dl RDW Std Deviation (35.1-43.9) fL Plt Count (163-337) K/mm3 MPV (9.4-12.3) fl Neut % (Auto) (34.0-67.9) % Lymph % (Auto) (21.8-53.1) % Nye % (Auto) (5.3-12.2) % Eos % (Auto) (0.8-7.0) Baso % (Auto) (0.1-1.2) % Neut # (Auto) (1.78-5.38) K/mm3 Lymph # (Auto) (1.32-3.57) K/mm3 Nye # (Auto) (0.30-0.82) K/mm3 Eos # (Auto) (0.04-0.54) K/mm3 Baso # (Auto) (0.01-0.08) K/mm3 Manual Slide Review Sodium (136-145) mEq/L Potassium (3.5-5.1) mEq/L Chloride (98-107) mEq/L Carbon Dioxide (21-32) mEq/L Anion Gap (5-15) BUN (7-18) mg/dL Creatinine (0.7-1.3) mg/dL Est Cr Clr Drug Dosing mL/min Estimated GFR (MDRD) (>60) mL/min BUN/Creatinine Ratio (14-18) Glucose (80-115) mg/dL POC Glucose (80-115) mg/dL Lactic Acid 0.6 (0.4-2.0) mmol/L Calcium (8.5-10.1) mg/dL Magnesium (1.8-2.4) mg/dl C-Reactive Protein (<1.0) mg/dL NT-Pro-B Natriuret Pep 2726 H (0-125) pg/mL Jr Results Last 24 Hours: Microbiology 02/28/18 19:20 Wound Culture - Final Foot, Right Pseudomonas Aeruginosa 02/28/18 11:14 Aerobic Blood Culture - Preliminary Blood - Venous NO GROWTH AFTER 3 DAYS Anaerobic Blood Culture - Preliminary NO GROWTH AFTER 3 DAYS 02/28/18 11:06 Aerobic Blood Culture - Preliminary Blood - Venous - Lab Draw NO GROWTH AFTER 3 DAYS Anaerobic Blood Culture - Preliminary NO GROWTH AFTER 3 DAYS Med Orders - Current: Current Medications Acetaminophen (Tylenol) 650 mg PO Q4H PRN PRN Reason: Pain/Fever Last Admin: 03/03/18 14:47 Dose: 650 mg Hydrocodone Bitart/Acetaminophen (Winters 325-5 Mg) 1 tab PO BID [facility] Last Admin: 03/04/18 08:05 Dose: 1 tab Aspirin (Halfprin) 81 mg PO DAILY [facility] Last Admin: 03/04/18 08:05 Dose: 81 mg Citalopram Hydrobromide (Celexa) 20 mg PO BEDTIME [facility] Last Admin: 03/03/18 20:35 Dose: 20 mg Clopidogrel Bisulfate (Plavix) 75 mg PO DAILY [facility] Last Admin: 03/04/18 08:06 Dose: 75 mg Dextrose/Water (Dextrose 50% In Water) 50 ml IVPUSH ASDIRECTED PRN PRN Reason: Hypoglycemia Docusate Sodium (Colace) 100 mg PO BID PRN PRN Reason: Constipation Duloxetine HCl (Cymbalta) 30 mg PO DAILY [facility] Last Admin: 03/04/18 08:05 Dose: 30 mg Gabapentin (Neurontin) 600 mg PO TID [facility] Last Admin: 03/04/18 08:05 Dose: 600 mg Heparin Sodium (Porcine) (Heparin Sodium) 5,000 units SUBCUT Q8H [facility] Last Admin: 03/04/18 02:12 Dose: 5,000 units Hydralazine HCl (Apresoline) 20 mg IVPUSH Q6H PRN PRN Reason: Hypertension Last Admin: 03/04/18 08:21 Dose: 20 mg Levofloxacin/Dextrose 750 mg/ (Premix) 150 mls @ 100 mls/hr IV Q48H [facility] Last Admin: 03/03/18 18:18 Dose: 100 mls/hr Cefepime HCl 2 gm/ Premix 50 mls @ 100 mls/hr IV Q12H [facility] Last Admin: 03/04/18 06:19 Dose: 100 mls/hr Insulin Glargine (Lantus Solostar) 15 units SUBCUT BID [facility] Last Admin: 03/04/18 08:06 Dose: 15 units Insulin Human Lispro (Humalog) 0 unit SUBCUT QIDACANDBED [facility]; Protocol Last Admin: 03/04/18 06:59 Dose: Not Given Metformin HCl (Glucophage) 1,000 mg PO BID [facility] Last Admin: 03/04/18 08:04 Dose: 1,000 mg Nystatin (Nystatin Crm) 0 gm TOP BID [facility] Last Admin: 03/04/18 08:06 Dose: 1 applic Pregabalin (Lyrica) 50 mg PO TID [facility] Last Admin: 03/04/18 08:04 Dose: 50 mg Quetiapine Fumarate (Seroquel) 350 mg PO BEDTIME [facility] Last Admin: 03/03/18 20:36 Dose: 350 mg Saccharomyces Boulardii (Florastor) 500 mg PO DAILY [facility] Last Admin: 03/04/18 08:04 Dose: 500 mg Simvastatin (Zocor) 20 mg PO BEDTIME [facility] Last Admin: 03/03/18 20:33 Dose: 20 mg Sodium Chloride (Saline Flush) 10 ml FLUSH ASDIRECTED PRN PRN Reason: Keep Vein Open Last Admin: 02/28/18 10:45 Dose: 10 ml Sodium Chloride ([place] Nasal [place]) 0 ml FILIPPO BID PRN PRN Reason: Nasal Dryness Discontinued Medications Hydrocodone Bitart/Acetaminophen ([place] 325-5 Mg) 1 tab PO Q6H PRN PRN Reason: Pain (moderate 4-6) Hydrocodone Bitart/Acetaminophen ([place]inters 325-5 Mg) 1 tab PO BID [facility] Furosemide (Lasix) 40 mg IVPUSH ONETIME ONE Stop: 02/28/18 21:31 Last Admin: 02/28/18 21:04 Dose: 40 mg Gabapentin (Neurontin) 300 mg PO BID [facility] Last Admin: 03/02/18 08:00 Dose: 300 mg Hydromorphone HCl (Dilaudid) 2 mg PO BEDTIME [facility] Last Admin: 03/01/18 20:58 Dose: 2 mg Hydromorphone HCl (Dilaudid) 2 mg IVPUSH ONETIME ONE Stop: 03/02/18 19:03 Last Admin: 03/02/18 20:25 Dose: 1 mg Ceftriaxone Sodium 2 gm/ (Sodium Chloride) 100 mls @ 100 mls/hr IV ONETIME ONE Stop: 02/28/18 11:25 Last Admin: 02/28/18 10:46 Dose: 100 mls/hr Sodium Chloride (Normal Saline) Confirm Administered Dose 500 mls @ as directed .ROUTE .STK-MED ONE Stop: 02/28/18 14:00 Last Admin: 02/28/18 14:10 Dose: Not Given Clindamycin Phosphate 900 mg/ (Sodium Chloride) 106 mls @ 100 mls/hr IV Q6H [facility] Last Admin: 03/01/18 17:09 Dose: 100 mls/hr Sodium Chloride (Normal Saline) Confirm Administered Dose 100 mls @ as directed .ROUTE .K-MED ONE Stop: 02/28/18 20:50 Last Admin: 02/28/18 21:00 Dose: Not Given Sodium Chloride (Normal Saline) 100 mls @ 100 mls/hr IV ASDIRECTED MAKAYLA Stop: 03/01/18 00:03 Last Admin: 02/28/18 21:14 Dose: 100 mls/hr Vancomycin HCl 1 gm/Vancomycin HCl 500 mg/ Sodium Chloride 500 mls @ 333.025 mls/hr IV ONETIME ONE Stop: 03/01/18 19:00 Last Admin: 03/01/18 18:20 Dose: 333.025 mls/hr Vancomycin HCl 1 gm/Vancomycin HCl 250 mg/ Sodium Chloride 500 mls @ 333.025 mls/hr IV Q24H [facility] Last Admin: 03/02/18 17:35 Dose: 333.025 mls/hr Lorazepam (Ativan) 0.25 mg PO BEDTIME [facility] Last Admin: 03/01/18 20:19 Dose: 0.25 mg Naloxone HCl (Narcan) 2 mg IVPUSH ONETIME ONE Stop: 02/28/18 12:31 Last Admin: 02/28/18 13:30 Dose: 2 mg Quetiapine Fumarate (Seroquel) 250 mg PO DAILY [facility] Last Admin: 03/02/18 22:27 Dose: Not Given Quetiapine Fumarate (Seroquel) 250 mg PO BEDTIME [facility] Last Admin: 03/02/18 20:31 Dose: 250 mg Vancomycin HCl (Pharmacy To Dose - Vancomycin) 0 dose .XX ASDIRECTED PRN PRN Reason: RX TO DOSE VANCO - Exam Quality Assessment: Supplemental Oxygen (1L; weaning off), DVT Prophylaxis General: Alert, Oriented, Cooperative HEENT: Pupils Equal, Pupils Reactive, EOMI, Mucous Membr. Moist/[place] Neck: Supple, Trachea Midline Lungs: Clear to Auscultation, Decreased Breath Sounds. No: Normal Respiratory Effort (Increased respiratory effort), Rub, Stridor, Wheezing Cardiovascular: Regular Rate, Regular Rhythm GI/Abdominal Exam: Normal Bowel Sounds, Soft, Non-Tender (Male) Exam: Deferred Back Exam: Normal Inspection, Decreased Range of Motion Extremities: Non-Tender, No Pedal Edema, Slow Capillary Refill, Other (Stasis dermatitis to legs bilaterally) Peripheral Pulses: 2+: Carotid (L), Carotid (R), Radial (L), Radial (R), Posterior Tibial (L), Posterior Tibial (R) Skin: Warm, Dry, Other (Scabs to feet, legs, and hands bilaterally) Wound/Incisions: Dressing Dry and Intact (To left f[place]man and right heel) Neurological: No New Focal Deficit Psy/Mental Status: Alert, Normal Affect, Normal Mood - Problem List Review Problem List Initiated/Reviewed/Updated: Yes - My Orders Last 24 Hours: My Active Orders 03/04/18 09:15 CREATININE W/GFR [CHEM] Routine - Plan Plan:: Impression: Aspiration PNA, query HCAP * WBC 11.62 --> 9.20 --> 8.36 --> 7.15 --> 7.30 * CRP 21.6 --> 17.7 --> 11.7 --> 8.0 * Chest X-ray on admission showed increased density in the right mid and lower lung. Chest X-ray on 03/02 shows continuing consolidation of the right lung base. Chest X-ray 03/03 shows improvement in the right lung base with minimal parenchymal density remaining. * Mycoplasma IgM negative * He was started on clindamycin for aspiration pneumonia but switched to levoquin and vancomycin on 03/02. Due to his wound culture growing P.aeruginosa, he is now on levoquin and cefepime. Narcotic overdose, s/p Narcan 3 mg; query iatrogenic * Presented to ER with shortness of breath, hypoxemia, low BP, and vision changes which improved with narcan * Patient has hydrocodone BID at [place] * Patient frequently requests aid for pain * Patient reports taking his electric wheelchair to the store in [place] to get cigarettes and sweets, question what else he may be getting Acute respiratory distress, resolved * Patient was requiring 3L O2 via nasal cannula on admission, is now on 1L Query JANY * Patient using BIPAP here; does not have at [place] Morbid obesity Acute/chronic wounds, assessment of R foot re:OM * R foot X-ray does not show definite signs of erosion * PT changed dressing today and nursing will take over * Culture grew Pseudomonoas aeruginosa Anemia, s/p 1 unit PRBCs * Hgb on admission 7.8 --> 10.7 --> 10.4 --> 10.0 --> 10.1 Acute on chronic kidney failure * Creatinine 1.9 --> 1.7 --> 1.5 --> 1.9 --> 3.0. BUN ~40 from admission until today when it increased to 50 * EGFR 36 --> 40 --> 47 --> 36 --> 21 * Ordered repeat creatinine today due to the increase. Results comparable. Initiated IV fluids Diabetes Clarify mental health (query anxiety/depression/bipolar disorder) * History of alcohol, cannabis, and nicotine dependence * Previous diagnosis of schizoaffective disorder, bipolar disorder, and anxiety * Previously in the [facility]. [place] reports that he is gruff but manageable and do not want his medications changed. * Dr. Hall was consulted for his assessment Pain in left hip/knee/shoulder * Patient states this is chronic but worse in the last few weeks * Patient reports improvement and will continue with PT Plan: Med surg with tele Keep O2 sat > 92% MRI re: right heel, chronic infection; will order once GFR improves IVF as needed Wound care PRBCs, keep Hgb>9.0 Adjust Insulin for ADA 1800 patricia Accurate I/Os Home meds Daily Labs DVT/GI prophylaxis Consult PT/OT/CM Patient needs aggressive antibiotic treatment for P. aeruginosa infection. He will get 5 days of IV levoquin and cefepime. Today is day 2. [place] has capabilities of IV antibiotic administration if needed. Recommend sleep study to assess for sleep apnea out patient Patient reports desiring an eye exam outpatient. Says his last was over a year ago and he thinks his vision is declining. Follow up with primary care. Code status: DNR/DNI PCP: Josefa Moreno
[2018-03-04] MEDS ORDERED: Sodium Chloride 0.9% 1,000 ML IV SCH (10:00)
--- NOTE | 2018-03-04 13:59 | CR ---
Chest: Two views of the chest were obtained. Comparison: Prior chest x-ray of 03/03/18. Heart is enlarged. Pulmonary vessels are slightly congested. Lateral view shows small pleural effusions. Minimal density remains within the right lung base most likely due to atelectasis. Degenerative spurring is noted within the spine. Impression: 1. Heart is enlarged with mild pulmonary vascular congestion. Lateral view shows small pleural effusions. 2. Mild persisting density within the right base most likely due to atelectasis. Diagnostic code #3
[2018-03-04] MEDS: Acetaminophen 325 MG Tab PO PRN (17:31)
[2018-03-04] MEDS: Simvastatin 20 MG Tab PO SCH (21:09)
[2018-03-04] MEDS: Citalopram 20 MG Tab PO SCH (21:09)
[2018-03-04] MEDS: QUEtiapine 100 MG Tab PO SCH (21:09)
[2018-03-05] MEDS: Heparin Sodium 5,000 Units/ML Vial SUBCUT SCH ×4 (03:33→22:27)
[2018-03-05] MEDS: Acetaminophen 325 MG Tab PO PRN (04:06)
[2018-03-05] MEDS: Cefepime 2 GM in Premix Bag 1 BAG IV SCH (06:42)
[2018-03-05] MEDS: Insulin Lispro 100 Unit/ML 3 ML KwikPen SUBCUT SCH ×4 (07:28→22:36)
[2018-03-05] MEDS: Acetaminophen/HYDROcodone 325-5 MG Tab PO SCH ×2 (09:10→22:32)
[2018-03-05] MEDS: Gabapentin 300 MG Cap PO SCH ×3 (09:11→22:35)
[2018-03-05] MEDS: Pregabalin 25 MG Cap PO SCH ×3 (09:11→22:34)
[2018-03-05] MEDS: metFORMIN 500 MG Tab PO SCH (09:12)
[2018-03-05] MEDS: Clopidogrel 75 MG Tab PO SCH (09:12)
[2018-03-05] MEDS: Aspirin 81 MG Tab.EC PO SCH (09:13)
[2018-03-05] MEDS: Saccharomyces Boulardii (Probiotic) 250 MG Cap PO SCH (09:13)
[2018-03-05] MEDS: DULoxetine 30 MG Cap PO SCH (09:13)
[2018-03-05] MEDS: Nystatin Crm 30 GM Tube TOP SCH ×2 (09:15→22:35)
[2018-03-05] MEDS: Insulin Glargine,Human Rec. Analog 100 Units/ML 3 ML Pen SUBCUT SCH ×2 (09:16→22:26)
[2018-03-05] MEDS: Sodium Chloride 0.9% 1,000 ML IV SCH (10:23)
--- NOTE | 2018-03-05 11:12 | PCM.PN ---
<Rosemary Hsu - Last Filed: 03/05/18 13:42> - General Info Date of Service: 03/05/18 Admission Dx/Problem (Free Text): Admission Diagnosis/Problem Admission Diagnosis/Problem Hypoxia Subjective Update: Kervin is doing well today. He is up in the chair when I visited him and he is feeling less short of breath. He has been requesting to go back to [facility], but he understands that he will be here until Thursday for IV antibiotics. - Review of Systems General: Reports: No Symptoms HEENT: Reports: Glasses, Headaches. Denies: Dysphasia, Ear Pain, Eye Pain, Sinus Congestion, Sore Throat Pulmonary: Denies: Shortness of Breath, Pleuritic Chest Pain, Cough, Wheezing Cardiovascular: Denies: Chest Pain, Palpitations, Edema, Lightheadedness Gastrointestinal: Reports: No Symptoms Genitourinary: Reports: No Symptoms Musculoskeletal: Reports: Shoulder Pain (Left), Joint Pain (Left knee and hip) Skin: Reports: No Symptoms Neurological: Reports: No Symptoms Psychiatric: Reports: No Symptoms - Patient Data Vitals - Most Recent: Last Vital Signs Temp 97.5 F 03/05/18 07:39 Pulse 72 03/05/18 07:39 Resp 20 03/05/18 07:39 BP 144/63 H 03/05/18 07:39 Pulse Ox 97 03/05/18 07:39 Weight - Most Recent: 139.616 kg I&O - Last 24 Hours: Intake & Output 03/04/18 03/05/18 03/05/18 22:59 06:59 14:59 Intake Total 1520 900 320 Output Total 600 Balance 920 900 320 Lab Results Last 24 Hours: Laboratory Results - last 24 hr 03/04/18 03/04/18 03/04/18 Range/Units 11:16 16:34 21:08 WBC (4.23-9.07) K/mm3 RBC (4.63-6.08) M/mm3 Hgb (13.7-17.5) gm/L Hct (40.1-51.0) % MCV (79.0-92.2) fl MCH (25.7-32.2) pg MCHC (32.2-35.5) g/dl RDW Std Deviation (35.1-43.9) fL Plt Count (163-337) K/mm3 MPV (9.4-12.3) fl Neut % (Auto) (34.0-67.9) % Lymph % (Auto) (21.8-53.1) % [place] % (Auto) (5.3-12.2) % Eos % (Auto) (0.8-7.0) Baso % (Auto) (0.1-1.2) % Neut # (Auto) (1.78-5.38) K/mm3 Lymph # (Auto) (1.32-3.57) K/mm3 [place] # (Auto) (0.30-0.82) K/mm3 Eos # (Auto) (0.04-0.54) K/mm3 Baso # (Auto) (0.01-0.08) K/mm3 Sodium (136-145) mEq/L Potassium (3.5-5.1) mEq/L Chloride (98-107) mEq/L Carbon Dioxide (21-32) mEq/L Anion Gap (5-15) BUN (7-18) mg/dL Creatinine (0.7-1.3) mg/dL Est Cr Clr Drug Dosing mL/min Estimated GFR (MDRD) (>60) mL/min BUN/Creatinine Ratio (14-18) Glucose (80-115) mg/dL POC Glucose 109 93 139 H (80-115) mg/dL Lactic Acid (0.4-2.0) mmol/L Calcium (8.5-10.1) mg/dL Magnesium (1.8-2.4) mg/dl NT-Pro-B Natriuret Pep (0-125) pg/mL 03/05/18 03/05/18 03/05/18 Range/Units 04:52 04:52 04:52 WBC 6.69 (4.23-9.07) K/mm3 RBC 3.96 L (4.63-6.08) M/mm3 Hgb 11.0 L (13.7-17.5) gm/L Hct 36.7 L (40.1-51.0) % MCV 92.7 H (79.0-92.2) fl MCH 27.8 (25.7-32.2) pg MCHC 30.0 L (32.2-35.5) g/dl RDW Std Deviation 54.5 H (35.1-43.9) fL Plt Count 219 (163-337) K/mm3 MPV 10.6 (9.4-12.3) fl Neut % (Auto) 70.0 H (34.0-67.9) % Lymph % (Auto) 14.9 L (21.8-53.1) % [place] % (Auto) 10.2 (5.3-12.2) % Eos % (Auto) 4.2 (0.8-7.0) Baso % (Auto) 0.3 (0.1-1.2) % Neut # (Auto) 4.68 (1.78-5.38) K/mm3 Lymph # (Auto) 1.00 L (1.32-3.57) K/mm3 [place] # (Auto) 0.68 (0.30-0.82) K/mm3 Eos # (Auto) 0.28 (0.04-0.54) K/mm3 Baso # (Auto) 0.02 (0.01-0.08) K/mm3 Sodium 137 (136-145) mEq/L Potassium 5.2 H (3.5-5.1) mEq/L Chloride 102 (98-107) mEq/L Carbon Dioxide 21 (21-32) mEq/L Anion Gap 19.2 H (5-15) BUN 54 H (7-18) mg/dL Creatinine 3.2 H (0.7-1.3) mg/dL Est Cr Clr Drug Dosing 15.84 mL/min Estimated GFR (MDRD) 19 (>60) mL/min BUN/Creatinine Ratio 16.9 (14-18) Glucose 99 (80-115) mg/dL POC Glucose (80-115) mg/dL Lactic Acid (0.4-2.0) mmol/L Calcium 8.6 (8.5-10.1) mg/dL Magnesium 2.5 H (1.8-2.4) mg/dl NT-Pro-B Natriuret Pep 3121 H (0-125) pg/mL 03/05/18 03/05/18 03/05/18 Range/Units 06:44 08:30 10:30 WBC (4.23-9.07) K/mm3 RBC (4.63-6.08) M/mm3 Hgb (13.7-17.5) gm/L Hct (40.1-51.0) % MCV (79.0-92.2) fl MCH (25.7-32.2) pg MCHC (32.2-35.5) g/dl RDW Std Deviation (35.1-43.9) fL Plt Count (163-337) K/mm3 MPV (9.4-12.3) fl Neut % (Auto) (34.0-67.9) % Lymph % (Auto) (21.8-53.1) % [place] % (Auto) (5.3-12.2) % Eos % (Auto) (0.8-7.0) Baso % (Auto) (0.1-1.2) % Neut # (Auto) (1.78-5.38) K/mm3 Lymph # (Auto) (1.32-3.57) K/mm3 [place] # (Auto) (0.30-0.82) K/mm3 Eos # (Auto) (0.04-0.54) K/mm3 Baso # (Auto) (0.01-0.08) K/mm3 Sodium 136 (136-145) mEq/L Potassium 5.1 (3.5-5.1) mEq/L Chloride 101 (98-107) mEq/L Carbon Dioxide 25 (21-32) mEq/L Anion Gap 15.1 H (5-15) BUN 54 H (7-18) mg/dL Creatinine 3.1 H (0.7-1.3) mg/dL Est Cr Clr Drug Dosing 16.35 mL/min Estimated GFR (MDRD) 20 (>60) mL/min BUN/Creatinine Ratio 17.4 (14-18) Glucose 149 H (80-115) mg/dL POC Glucose 99 (80-115) mg/dL Lactic Acid 1.0 (0.4-2.0) mmol/L Calcium 8.7 (8.5-10.1) mg/dL Magnesium (1.8-2.4) mg/dl NT-Pro-B Natriuret Pep (0-125) pg/mL Jr Results Last 24 Hours: Microbiology 02/28/18 11:14 Aerobic Blood Culture - Preliminary Blood - Venous NO GROWTH AFTER 4 DAYS Anaerobic Blood Culture - Preliminary NO GROWTH AFTER 4 DAYS 02/28/18 11:06 Aerobic Blood Culture - Preliminary Blood - Venous - Lab Draw NO GROWTH AFTER 4 DAYS Anaerobic Blood Culture - Preliminary NO GROWTH AFTER 4 DAYS Med Orders - Current: Current Medications Acetaminophen (Tylenol) 650 mg PO Q4H PRN PRN Reason: Pain/Fever Last Admin: 03/05/18 04:06 Dose: 650 mg Hydrocodone Bitart/Acetaminophen ([place] 325-5 Mg) 1 tab PO BID [facility] Last Admin: 03/05/18 09:10 Dose: 1 tab Aspirin (Halfprin) 81 mg PO DAILY [facility] Last Admin: 03/05/18 09:13 Dose: 81 mg Citalopram Hydrobromide (Celexa) 20 mg PO BEDTIME [facility] Last Admin: 03/04/18 21:09 Dose: 20 mg Clopidogrel Bisulfate (Plavix) 75 mg PO DAILY [facility] Last Admin: 03/05/18 09:12 Dose: 75 mg Dextrose/Water (Dextrose 50% In Water) 50 ml IVPUSH ASDIRECTED PRN PRN Reason: Hypoglycemia Docusate Sodium (Colace) 100 mg PO BID PRN PRN Reason: Constipation Duloxetine HCl (Cymbalta) 30 mg PO DAILY [facility] Last Admin: 03/05/18 09:13 Dose: 30 mg Gabapentin (Neurontin) 600 mg PO TID [facility] Last Admin: 03/05/18 09:11 Dose: 600 mg Heparin Sodium (Porcine) (Heparin Sodium) 5,000 units SUBCUT Q8H [facility] Last Admin: 03/05/18 04:03 Dose: 5,000 units Hydralazine HCl (Apresoline) 20 mg IVPUSH Q6H PRN PRN Reason: Hypertension Last Admin: 03/04/18 21:09 Dose: 20 mg Levofloxacin/Dextrose 750 mg/ (Premix) 150 mls @ 100 mls/hr IV Q48H [facility] Last Admin: 03/03/18 18:18 Dose: 100 mls/hr Cefepime HCl 2 gm/ Premix 50 mls @ 100 mls/hr IV Q12H [facility] Last Admin: 03/05/18 06:42 Dose: 100 mls/hr Sodium Chloride (Normal Saline) 1,000 mls @ 75 mls/hr IV ASDIRECTED [facility] Stop: 03/06/18 08:00 Last Admin: 03/05/18 10:23 Dose: 75 mls/hr Insulin Glargine (Lantus Solostar) 15 units SUBCUT BID [facility] Last Admin: 03/05/18 09:16 Dose: 15 units Insulin Human Lispro (Humalog) 0 unit SUBCUT QIDACANDBED [facility]; Protocol Last Admin: 03/05/18 07:28 Dose: Not Given Metformin HCl (Glucophage) 1,000 mg PO BID [facility] Last Admin: 03/05/18 09:12 Dose: 1,000 mg Nicotine (Habitrol) 14 mg TRDERM DAILY [facility] Nystatin (Nystatin Crm) 0 gm TOP BID [facility] Last Admin: 03/05/18 09:15 Dose: 1 applic Pregabalin (Lyrica) 50 mg PO TID [facility] Last Admin: 03/05/18 09:11 Dose: 50 mg Quetiapine Fumarate (Seroquel) 350 mg PO BEDTIME [facility] Last Admin: 03/04/18 21:09 Dose: 350 mg Saccharomyces Boulardii (Florastor) 500 mg PO DAILY [facility] Last Admin: 03/05/18 09:13 Dose: 500 mg Simvastatin (Zocor) 20 mg PO BEDTIME [facility] Last Admin: 03/04/18 21:09 Dose: 20 mg Sodium Chloride (Saline Flush) 10 ml FLUSH ASDIRECTED PRN PRN Reason: Keep Vein Open Last Admin: 02/28/18 10:45 Dose: 10 ml Sodium Chloride ([place] Nasal [place]) 0 ml FILIPPO BID PRN PRN Reason: Nasal Dryness Discontinued Medications Hydrocodone Bitart/Acetaminophen ([place] 325-5 Mg) 1 tab PO Q6H PRN PRN Reason: Pain (moderate 4-6) Hydrocodone Bitart/Acetaminophen ([place] 325-5 Mg) 1 tab PO BID [facility] Furosemide (Lasix) 40 mg IVPUSH ONETIME ONE Stop: 02/28/18 21:31 Last Admin: 02/28/18 21:04 Dose: 40 mg Gabapentin (Neurontin) 300 mg PO BID [facility] Last Admin: 03/02/18 08:00 Dose: 300 mg Heparin Sodium (Porcine) (Heparin Sodium) 5,000 units SUBCUT Q8H [facility] Last Admin: 03/05/18 03:33 Dose: Not Given Hydromorphone HCl (Dilaudid) 2 mg PO BEDTIME [facility] Last Admin: 03/01/18 20:58 Dose: 2 mg Hydromorphone HCl (Dilaudid) 2 mg IVPUSH ONETIME ONE Stop: 03/02/18 19:03 Last Admin: 03/02/18 20:25 Dose: 1 mg Ceftriaxone Sodium 2 gm/ (Sodium Chloride) 100 mls @ 100 mls/hr IV ONETIME ONE Stop: 02/28/18 11:25 Last Admin: 02/28/18 10:46 Dose: 100 mls/hr Sodium Chloride (Normal Saline) Confirm Administered Dose 500 mls @ as directed .ROUTE .STK-MED ONE Stop: 02/28/18 14:00 Last Admin: 02/28/18 14:10 Dose: Not Given Clindamycin Phosphate 900 mg/ (Sodium Chloride) 106 mls @ 100 mls/hr IV Q6H [facility] Last Admin: 03/01/18 17:09 Dose: 100 mls/hr Sodium Chloride (Normal Saline) Confirm Administered Dose 100 mls @ as directed .ROUTE .STK-MED ONE Stop: 02/28/18 20:50 Last Admin: 02/28/18 21:00 Dose: Not Given Sodium Chloride (Normal Saline) 100 mls @ 100 mls/hr IV ASDIRECTED [facility] Stop: 03/01/18 00:03 Last Admin: 02/28/18 21:14 Dose: 100 mls/hr Vancomycin HCl 1 gm/Vancomycin HCl 500 mg/ Sodium Chloride 500 mls @ 333.025 mls/hr IV ONETIME ONE Stop: 03/01/18 19:00 Last Admin: 03/01/18 18:20 Dose: 333.025 mls/hr Vancomycin HCl 1 gm/Vancomycin HCl 250 mg/ Sodium Chloride 500 mls @ 333.025 mls/hr IV Q24H [facility] Last Admin: 03/02/18 17:35 Dose: 333.025 mls/hr Sodium Chloride (Normal Saline) 1,000 mls @ 100 mls/hr IV ASDIRECTED [facility] Stop: 03/04/18 23:00 Last Admin: 03/04/18 10:25 Dose: 100 mls/hr Lorazepam (Ativan) 0.25 mg PO BEDTIME [facility] Last Admin: 03/01/18 20:19 Dose: 0.25 mg Naloxone HCl (Narcan) 2 mg IVPUSH ONETIME ONE Stop: 02/28/18 12:31 Last Admin: 02/28/18 13:30 Dose: 2 mg Quetiapine Fumarate (Seroquel) 250 mg PO DAILY [facility] Last Admin: 03/02/18 22:27 Dose: Not Given Quetiapine Fumarate (Seroquel) 250 mg PO BEDTIME [facility] Last Admin: 03/02/18 20:31 Dose: 250 mg Vancomycin HCl (Pharmacy To Dose - Vancomycin) 0 dose .XX ASDIRECTED PRN PRN Reason: RX TO DOSE VANCO - Exam Quality Assessment: Supplemental Oxygen (1L), DVT Prophylaxis General: Alert, Oriented, Cooperative, No Acute Distress HEENT: Pupils Equal, Pupils Reactive, EOMI, Mucous Membr. Moist/Radium Neck: Supple, Trachea Midline Lungs: Clear to Auscultation, Normal Respiratory Effort, Decreased Breath Sounds Cardiovascular: Regular Rate, Regular Rhythm GI/Abdominal Exam: Normal Bowel Sounds, Soft, Non-Tender (Male) Exam: Deferred Back Exam: Normal Inspection, Decreased Range of Motion Extremities: Normal Inspection, No Pedal Edema, Slow Capillary Refill Peripheral Pulses: 2+: Carotid (L), Carotid (R), Radial (L), Radial (R), Posterior Tibial (L), Posterior Tibial (R), Dorsalis Pedis (L), Dorsalis Pedis ( R) Skin: Warm, Dry, Intact Wound/Incisions: Dressing Dry and Intact (To left feldman and right heel) Neurological: No New Focal Deficit Psy/Mental Status: Alert, Normal Affect, Normal Mood - Problem List Review Problem List Initiated/Reviewed/Updated: Yes - My Orders Last 24 Hours: My Active Orders 03/05/18 09:45 Sodium Chloride 0.9% [Normal Saline] 1,000 ml IV ASDIRECTED 03/05/18 10:53 Chest 1V Frontal [CR] Routine 03/05/18 11:15 Nicotine [Habitrol] 14 mg TRDERM DAILY - Plan Plan:: Impression: Aspiration PNA, query HCAP * WBC 11.62 --> 9.20 --> 8.36 --> 7.15 --> 7.30 --> 6.69 * CRP 21.6 --> 17.7 --> 11.7 --> 8.0 * Chest X-ray on admission showed increased density in the right mid and lower lung. Chest X-ray on 03/02 shows continuing consolidation of the right lung base. Chest X-ray 03/03 shows improvement in the right lung base with minimal parenchymal density remaining. Chest X-ray today shows minimal density in the right lung base, likely due to atelectasis, with no definite acute findings. * Mycoplasma IgM negative * He was started on clindamycin for aspiration pneumonia but switched to levoquin and vancomycin on 03/02. Due to his wound culture growing P.aeruginosa, he is now on levoquin and cefepime. Narcotic overdose, s/p Narcan 3 mg; query iatrogenic * Presented to ER with shortness of breath, hypoxemia, low BP, and vision changes which improved with narcan * Patient has hydrocodone BID at [facility] * Patient frequently requests aid for pain * Patient reports taking his electric wheelchair to the store in [place] to get cigarettes and sweets, question what else he may be getting Acute respiratory distress, resolved * Patient was requiring 3L O2 via nasal cannula on admission, is now on 1L Query JANY * Patient using BIPAP here; does not have at [facility] Morbid obesity Acute/chronic wounds, assessment of R foot re:OM * R foot X-ray does not show definite signs of erosion * PT changed dressing today and nursing will take over * Culture grew Pseudomonoas aeruginosa Anemia, s/p 1 unit PRBCs * Hgb on admission 7.8 --> 10.7 --> 10.4 --> 10.0 --> 10.1 --> 11.0 Acute on chronic kidney failure * Creatinine 1.9 --> 1.7 --> 1.5 --> 1.9 --> 3.0 --> 3.2. BUN ~40 from admission until yesterday when it increased to 50. 54 today. * EGFR 36 --> 40 --> 47 --> 36 --> 21 --> 19 * Initiated IV fluids yesterday. Will continue due to continued elevated creatinine. * Pharmacy reported they will adjust his dose of cefepime Diabetes Clarify mental health (query anxiety/depression/bipolar disorder) * History of alcohol, cannabis, and nicotine dependence * Previous diagnosis of schizoaffective disorder, bipolar disorder, and anxiety * Previously in the [facility]. [facility] reports that he is gruff but manageable and do not want his medications changed. * Dr. Hall was consulted for his assessment Pain in left hip/knee/shoulder * Patient states this is chronic but worse in the last few weeks * Patient reports improvement and will continue with PT Hyperkalemia * Potassium was elevated at 5.2 with this morning's lab draw * Kayexalate 45 gm to be given Plan: Med surg with tele Keep O2 sat > 92% MRI re: right heel, chronic infection; will order once GFR improves IVF as needed Wound care Adjust Insulin for ADA 1800 patricia Accurate I/Os Home meds Daily Labs DVT/GI prophylaxis Consult PT/OT/CM Patient needs aggressive antibiotic treatment for P. aeruginosa infection. He will get 5 days of IV levoquin and cefepime. Today is day 3. [facility] has capabilities of IV antibiotic administration if needed. Recommend sleep study to assess for sleep apnea out patient Patient reports desiring an eye exam outpatient. Says his last was over a year ago and he thinks his vision is declining. Follow up with primary care. Code status: DNR/DNI PCP: Josefa Moreno <Lexi Guadarrama - Last Filed: 03/06/18 11:06> - Patient Data Vitals - Most Recent: Last Vital Signs Temp 36.2 C 03/06/18 07:31 Pulse 80 03/06/18 07:34 Resp 20 03/06/18 07:31 BP 160/87 H 03/06/18 07:34 Pulse Ox 94 L 03/06/18 07:34 I&O - Last 24 Hours: Intake & Output 03/05/18 03/06/18 03/06/18 22:59 06:59 14:59 Intake Total 1120 1065 Balance 1120 1065 Lab Results Last 24 Hours: Laboratory Results - last 24 hr 03/05/18 03/05/18 03/06/18 Range/Units 16:40 22:25 06:53 POC Glucose 108 118 H 123 H (80-115) mg/dL Jr Results Last 24 Hours: Microbiology 02/28/18 11:14 Aerobic Blood Culture - Preliminary Blood - Venous NO GROWTH AFTER 5 DAYS Anaerobic Blood Culture - Preliminary NO GROWTH AFTER 5 DAYS 02/28/18 11:06 Aerobic Blood Culture - Preliminary Blood - Venous - Lab Draw NO GROWTH AFTER 5 DAYS Anaerobic Blood Culture - Preliminary NO GROWTH AFTER 5 DAYS Med Orders - Current: Current Medications Acetaminophen (Tylenol) 650 mg PO Q4H PRN PRN Reason: Pain/Fever Last Admin: 03/05/18 04:06 Dose: 650 mg Hydrocodone Bitart/Acetaminophen ([place] 325-5 Mg) 1 tab PO BID [facility] Last Admin: 03/06/18 09:29 Dose: 1 tab Aspirin (Halfprin) 81 mg PO DAILY [facility] Last Admin: 03/06/18 09:28 Dose: 81 mg Citalopram Hydrobromide (Celexa) 20 mg PO BEDTIME [facility] Last Admin: 03/05/18 22:32 Dose: 20 mg Clopidogrel Bisulfate (Plavix) 75 mg PO DAILY [facility] Last Admin: 03/06/18 09:29 Dose: 75 mg Dextrose/Water (Dextrose 50% In Water) 50 ml IVPUSH ASDIRECTED PRN PRN Reason: Hypoglycemia Docusate Sodium (Colace) 100 mg PO BID PRN PRN Reason: Constipation Duloxetine HCl (Cymbalta) 30 mg PO DAILY [facility] Last Admin: 03/06/18 09:30 Dose: 30 mg Gabapentin (Neurontin) 300 mg PO TID [facility] Last Admin: 03/06/18 09:29 Dose: 300 mg Heparin Sodium (Porcine) (Heparin Sodium) 5,000 units SUBCUT Q8H [facility] Last Admin: 03/06/18 05:59 Dose: 5,000 units Hydralazine HCl (Apresoline) 20 mg IVPUSH Q6H PRN PRN Reason: Hypertension Last Admin: 03/05/18 22:53 Dose: 20 mg Cefepime HCl 1 gm/ Premix 50 mls @ 100 mls/hr IV Q12H [facility] Stop: 03/06/18 21:00 Last Admin: 03/06/18 06:00 Dose: 100 mls/hr Insulin Glargine (Lantus Solostar) 15 units SUBCUT BID [facility] Last Admin: 03/06/18 09:31 Dose: 15 units Insulin Human Lispro (Humalog) 0 unit SUBCUT QIDACANDBED [facility]; Protocol Last Admin: 03/06/18 07:36 Dose: Not Given Levofloxacin (Levaquin) 750 mg PO Q48H [facility] Last Admin: 03/05/18 18:55 Dose: 750 mg Miscellaneous Information (Remove Patch) 0 ea TRDERM DAILY [facility] Last Admin: 03/06/18 09:32 Dose: 1 ea Nicotine (Habitrol) 14 mg TRDERM DAILY [facility] Last Admin: 03/06/18 09:30 Dose: 14 mg Nystatin (Nystatin Crm) 0 gm TOP BID [facility] Last Admin: 03/06/18 09:36 Dose: 1 applic Pregabalin (Lyrica) 50 mg PO TID [facility] Last Admin: 03/06/18 09:28 Dose: 50 mg Quetiapine Fumarate (Seroquel) 350 mg PO BEDTIME [facility] Last Admin: 03/05/18 22:30 Dose: 350 mg Saccharomyces Boulardii (Florastor) 500 mg PO DAILY [facility] Last Admin: 03/06/18 09:28 Dose: 500 mg Simvastatin (Zocor) 20 mg PO BEDTIME [facility] Last Admin: 03/05/18 22:33 Dose: 20 mg Sodium Chloride (Saline Flush) 10 ml FLUSH ASDIRECTED PRN PRN Reason: Keep Vein Open Last Admin: 02/28/18 10:45 Dose: 10 ml Sodium Chloride ([place] Nasal [place]) 0 ml FILIPPO BID PRN PRN Reason: Nasal Dryness Discontinued Medications Hydrocodone Bitart/Acetaminophen ([place] 325-5 Mg) 1 tab PO Q6H PRN PRN Reason: Pain (moderate 4-6) Hydrocodone Bitart/Acetaminophen ([place] 325-5 Mg) 1 tab PO BID [facility] Furosemide (Lasix) 40 mg IVPUSH ONETIME ONE Stop: 02/28/18 21:31 Last Admin: 02/28/18 21:04 Dose: 40 mg Gabapentin (Neurontin) 300 mg PO BID [facility] Last Admin: 03/02/18 08:00 Dose: 300 mg Gabapentin (Neurontin) 600 mg PO TID [facility] Last Admin: 03/05/18 09:11 Dose: 600 mg Heparin Sodium (Porcine) (Heparin Sodium) 5,000 units SUBCUT Q8H [facility] Last Admin: 03/05/18 03:33 Dose: Not Given Hydromorphone HCl (Dilaudid) 2 mg PO BEDTIME [facility] Last Admin: 03/01/18 20:58 Dose: 2 mg Hydromorphone HCl (Dilaudid) 2 mg IVPUSH ONETIME ONE Stop: 03/02/18 19:03 Last Admin: 03/02/18 20:25 Dose: 1 mg Ceftriaxone Sodium 2 gm/ (Sodium Chloride) 100 mls @ 100 mls/hr IV ONETIME ONE Stop: 02/28/18 11:25 Last Admin: 02/28/18 10:46 Dose: 100 mls/hr Sodium Chloride (Normal Saline) Confirm Administered Dose 500 mls @ as directed .ROUTE .[facility] ONE Stop: 02/28/18 14:00 Last Admin: 02/28/18 14:10 Dose: Not Given Clindamycin Phosphate 900 mg/ (Sodium Chloride) 106 mls @ 100 mls/hr IV Q6H [facility] Last Admin: 03/01/18 17:09 Dose: 100 mls/hr Sodium Chloride (Normal Saline) Confirm Administered Dose 100 mls @ as directed .ROUTE .[facility] ONE Stop: 02/28/18 20:50 Last Admin: 02/28/18 21:00 Dose: Not Given Sodium Chloride (Normal Saline) 100 mls @ 100 mls/hr IV ASDIRECTED [facility] Stop: 03/01/18 00:03 Last Admin: 02/28/18 21:14 Dose: 100 mls/hr Levofloxacin/Dextrose 750 mg/ (Premix) 150 mls @ 100 mls/hr IV Q48H [facility] Last Admin: 03/03/18 18:18 Dose: 100 mls/hr Vancomycin HCl 1 gm/Vancomycin HCl 500 mg/ Sodium Chloride 500 mls @ 333.025 mls/hr IV ONETIME ONE Stop: 03/01/18 19:00 Last Admin: 03/01/18 18:20 Dose: 333.025 mls/hr Vancomycin HCl 1 gm/Vancomycin HCl 250 mg/ Sodium Chloride 500 mls @ 333.025 mls/hr IV Q24H [facility] Last Admin: 03/02/18 17:35 Dose: 333.025 mls/hr Cefepime HCl 2 gm/ Premix 50 mls @ 100 mls/hr IV Q12H [facility] Last Admin: 03/05/18 06:42 Dose: 100 mls/hr Sodium Chloride (Normal Saline) 1,000 mls @ 100 mls/hr IV ASDIRECTED [facility] Stop: 03/04/18 23:00 Last Admin: 03/04/18 10:25 Dose: 100 mls/hr Sodium Chloride (Normal Saline) 1,000 mls @ 75 mls/hr IV ASDIRECTED [facility] Stop: 03/06/18 08:00 Last Admin: 03/06/18 02:55 Dose: 75 mls/hr Lorazepam (Ativan) 0.25 mg PO BEDTIME [facility] Last Admin: 03/01/18 20:19 Dose: 0.25 mg Metformin HCl (Glucophage) 1,000 mg PO BID [facility] Last Admin: 03/05/18 09:12 Dose: 1,000 mg Naloxone HCl (Narcan) 2 mg IVPUSH ONETIME ONE Stop: 02/28/18 12:31 Last Admin: 02/28/18 13:30 Dose: 2 mg Quetiapine Fumarate (Seroquel) 250 mg PO DAILY [facility] Last Admin: 03/02/18 22:27 Dose: Not Given Quetiapine Fumarate (Seroquel) 250 mg PO BEDTIME [facility] Last Admin: 03/02/18 20:31 Dose: 250 mg Sodium Polystyrene Sulfonate (Kayexalate) 45 gm PO NOW ONE Stop: 03/05/18 11:30 Last Admin: 03/05/18 12:37 Dose: 45 gm Vancomycin HCl (Pharmacy To Dose - Vancomycin) 0 dose .XX ASDIRECTED PRN PRN Reason: RX TO DOSE VANCO - Problem List & Annotations (1) Morbid (severe) obesity due to excess calories SNOMED Code(s): 559978012 Code(s): E66.01 - MORBID (SEVERE) OBESITY DUE TO EXCESS CALORIES Status: Chronic Current Visit: Yes (2) Diabetes mellitus SNOMED Code(s): 94010153 Code(s): E11.9 - TYPE 2 DIABETES MELLITUS WITHOUT COMPLICATIONS Status: Chronic Current Visit: Yes (3) Narcotic overdose SNOMED Code(s): 389861428 Code(s): T40.601A - POISONING BY UNSP NARCOTICS, ACCIDENTAL, INIT Status: Acute Current Visit: Yes (4) Anemia SNOMED Code(s): 526695125 Code(s): D64.9 - ANEMIA, UNSPECIFIED Status: Acute Current Visit: Yes Qualifiers: Anemia type: other cause Other causes of anemia: other cause, not classified Qualified Code(s): D64.89 - Other specified anemias (5) Aspiration pneumonia SNOMED Code(s): 473044009 Code(s): J69.0 - PNEUMONITIS DUE TO INHALATION OF FOOD AND VOMIT Status: Acute Current Visit: Yes Qualifiers: Aspiration pneumonia type: unspecified Laterality: right Lung location: middle lobe of lung Qualified Code(s): J69.0 - Pneumonitis due to inhalation of food and vomit (6) Hypercarbia SNOMED Code(s): 83071082 Code(s): R06.89 - OTHER ABNORMALITIES OF BREATHING Status: Acute Current Visit: Yes (7) Hypoxia SNOMED Code(s): 082311472 Code(s): R09.02 - HYPOXEMIA Status: Acute Current Visit: Yes (8) Renal insufficiency SNOMED Code(s): 563172346, 125321472 Code(s): N28.9 - DISORDER OF KIDNEY AND URETER, UNSPECIFIED Status: Acute Current Visit: Yes - My Orders Last 24 Hours: My Active Orders 03/05/18 11:27 Gabapentin [Neurontin] 300 mg PO TID 03/05/18 18:00 levoFLOXacin [Levaquin] 750 mg PO Q48H 03/05/18 19:00 Cefepime [Maxipime in D5W 1 GM/50 ML] 1 gm Premix Bag 1 bag IV Q12H 03/06/18 15:00 BMP [BASIC METABOLIC PANEL,BMP] [CHEM] Routine CBC WITH AUTO DIFF [HEME] Routine CRP [C-REACTIVE PROTEIN] [CHEM] Routine 03/08/18 07:00 CBC W/O DIFF,HEMOGRAM [HEME] MOTH@0700 03/11/18 07:00 CBC W/O DIFF,HEMOGRAM [HEME] MOTH@0700 03/15/18 07:00 CBC W/O DIFF,HEMOGRAM [HEME] MOTH@0700 03/18/18 07:00 CBC W/O DIFF,HEMOGRAM [HEME] MOTH@0700 - Plan Plan:: Correction of ATB coverage: Cefipime day 5/Levoquin day 6; repeat CXR 03/06/18. Acute on chronic RF-->hydrate, hold nephrotoxins; Kayexelate as mentioned. Return to [facility] [facility], pending.
[2018-03-05] MEDS: Nicotine 14 MG/24 Hr Patch TRDERM SCH (11:16)
[2018-03-05] MEDS ORDERED: Sodium Polystyrene Sulfonate 15 GM/60 ML Susp 60 ML Bot PO ONE (11:29)
--- NOTE | 2018-03-05 12:01 | CR ---
Chest: Portable view of the chest was obtained. Comparison: Prior chest x-ray of 03/04/18. Heart is enlarged. Pulmonary vessels show minimal upper lobe redistribution. Slight density within the right lung base most likely due to atelectasis. Impression: 1. Findings as noted above. Nothing acute is definitely appreciated on portable chest x-ray. Diagnostic code #3
[2018-03-05] MEDS: hydrALAZINE 20 MG/ML SDV IVPUSH PRN ×2 (16:10→22:53)
[2018-03-05] MEDS ORDERED: Levofloxacin 750 MG Tab PO SCH (18:00)
[2018-03-05] MEDS: Cefepime 1 GM in Premix Bag 1 BAG IV SCH (18:55)
[2018-03-05] MEDS: QUEtiapine 100 MG Tab PO SCH (22:30)
[2018-03-05] MEDS: Citalopram 20 MG Tab PO SCH (22:32)
[2018-03-05] MEDS: Simvastatin 20 MG Tab PO SCH (22:33)
[2018-03-06] MEDS: Sodium Chloride 0.9% 1,000 ML IV SCH (02:55)
[2018-03-06] MEDS: Heparin Sodium 5,000 Units/ML Vial SUBCUT SCH ×3 (05:59→21:12)
[2018-03-06] MEDS: Cefepime 1 GM in Premix Bag 1 BAG IV SCH ×2 (06:00→18:19)
[2018-03-06] MEDS: Insulin Lispro 100 Unit/ML 3 ML KwikPen SUBCUT SCH ×4 (07:36→21:27)
[2018-03-06] MEDS: Aspirin 81 MG Tab.EC PO SCH (09:28)
[2018-03-06] MEDS: Pregabalin 25 MG Cap PO SCH ×3 (09:28→21:16)
[2018-03-06] MEDS: Saccharomyces Boulardii (Probiotic) 250 MG Cap PO SCH (09:28)
[2018-03-06] MEDS: Acetaminophen/HYDROcodone 325-5 MG Tab PO SCH ×2 (09:29→21:19)
[2018-03-06] MEDS: Gabapentin 300 MG Cap PO SCH ×3 (09:29→21:18)
[2018-03-06] MEDS: Clopidogrel 75 MG Tab PO SCH (09:29)
[2018-03-06] MEDS: DULoxetine 30 MG Cap PO SCH (09:30)
[2018-03-06] MEDS: Nicotine 14 MG/24 Hr Patch TRDERM SCH (09:30)
[2018-03-06] MEDS: Insulin Glargine,Human Rec. Analog 100 Units/ML 3 ML Pen SUBCUT SCH ×2 (09:31→21:12)
[2018-03-06] MEDS: Nystatin Crm 30 GM Tube TOP SCH ×2 (09:36→21:18)
--- NOTE | 2018-03-06 11:12 | PCM.PN ---
- General Info Date of Service: 03/06/18 Functional Status: Reports: Pain Controlled, Tolerating Diet, Urinating - Review of Systems General: Reports: No Symptoms HEENT: Reports: No Symptoms Pulmonary: Reports: Shortness of Breath Cardiovascular: Reports: No Symptoms Gastrointestinal: Reports: No Symptoms Genitourinary: Reports: No Symptoms Musculoskeletal: Reports: Leg Pain, Joint Pain Skin: Reports: No Symptoms Neurological: Reports: No Symptoms Psychiatric: Reports: No Symptoms - Patient Data Vitals - Most Recent: Last Vital Signs Temp 36.2 C 03/06/18 07:31 Pulse 80 03/06/18 07:34 Resp 20 03/06/18 07:31 BP 160/87 H 03/06/18 07:34 Pulse Ox 94 L 03/06/18 07:34 Weight - Most Recent: 139.071 kg I&O - Last 24 Hours: Intake & Output 03/05/18 03/06/18 03/06/18 22:59 06:59 14:59 Intake Total 1120 1065 Balance 1120 1065 Lab Results Last 24 Hours: Laboratory Results - last 24 hr 03/05/18 03/05/18 03/06/18 Range/Units 16:40 22:25 06:53 POC Glucose 108 118 H 123 H (80-115) mg/dL Jr Results Last 24 Hours: Microbiology 02/28/18 11:14 Aerobic Blood Culture - Preliminary Blood - Venous NO GROWTH AFTER 5 DAYS Anaerobic Blood Culture - Preliminary NO GROWTH AFTER 5 DAYS 02/28/18 11:06 Aerobic Blood Culture - Preliminary Blood - Venous - Lab Draw NO GROWTH AFTER 5 DAYS Anaerobic Blood Culture - Preliminary NO GROWTH AFTER 5 DAYS Med Orders - Current: Current Medications Acetaminophen (Tylenol) 650 mg PO Q4H PRN PRN Reason: Pain/Fever Last Admin: 03/05/18 04:06 Dose: 650 mg Hydrocodone Bitart/Acetaminophen ([place] 325-5 Mg) 1 tab PO BID [facility] Last Admin: 03/06/18 09:29 Dose: 1 tab Aspirin (Halfprin) 81 mg PO DAILY [facility] Last Admin: 03/06/18 09:28 Dose: 81 mg Citalopram Hydrobromide (Celexa) 20 mg PO BEDTIME [facility] Last Admin: 03/05/18 22:32 Dose: 20 mg Clopidogrel Bisulfate (Plavix) 75 mg PO DAILY [facility] Last Admin: 03/06/18 09:29 Dose: 75 mg Dextrose/Water (Dextrose 50% In Water) 50 ml IVPUSH ASDIRECTED PRN PRN Reason: Hypoglycemia Docusate Sodium (Colace) 100 mg PO BID PRN PRN Reason: Constipation Duloxetine HCl (Cymbalta) 30 mg PO DAILY [facility] Last Admin: 03/06/18 09:30 Dose: 30 mg Gabapentin (Neurontin) 300 mg PO TID [facility] Last Admin: 03/06/18 09:29 Dose: 300 mg Heparin Sodium (Porcine) (Heparin Sodium) 5,000 units SUBCUT Q8H [facility] Last Admin: 03/06/18 05:59 Dose: 5,000 units Hydralazine HCl (Apresoline) 20 mg IVPUSH Q6H PRN PRN Reason: Hypertension Last Admin: 03/05/18 22:53 Dose: 20 mg Cefepime HCl 1 gm/ Premix 50 mls @ 100 mls/hr IV Q12H [facility] Stop: 03/06/18 21:00 Last Admin: 03/06/18 06:00 Dose: 100 mls/hr Insulin Glargine (Lantus Solostar) 15 units SUBCUT BID [facility] Last Admin: 03/06/18 09:31 Dose: 15 units Insulin Human Lispro (Humalog) 0 unit SUBCUT QIDACANDBED [facility]; Protocol Last Admin: 03/06/18 07:36 Dose: Not Given Levofloxacin (Levaquin) 750 mg PO Q48H [facility] Last Admin: 03/05/18 18:55 Dose: 750 mg Miscellaneous Information (Remove Patch) 0 ea TRDERM DAILY [facility] Last Admin: 03/06/18 09:32 Dose: 1 ea Nicotine (Habitrol) 14 mg TRDERM DAILY [facility] Last Admin: 03/06/18 09:30 Dose: 14 mg Nystatin (Nystatin Crm) 0 gm TOP BID [facility] Last Admin: 03/06/18 09:36 Dose: 1 applic Pregabalin (Lyrica) 50 mg PO TID [facility] Last Admin: 03/06/18 09:28 Dose: 50 mg Quetiapine Fumarate (Seroquel) 350 mg PO BEDTIME [facility] Last Admin: 03/05/18 22:30 Dose: 350 mg Saccharomyces Boulardii (Florastor) 500 mg PO DAILY [facility] Last Admin: 03/06/18 09:28 Dose: 500 mg Simvastatin (Zocor) 20 mg PO BEDTIME [facility] Last Admin: 03/05/18 22:33 Dose: 20 mg Sodium Chloride (Saline Flush) 10 ml FLUSH ASDIRECTED PRN PRN Reason: Keep Vein Open Last Admin: 02/28/18 10:45 Dose: 10 ml Sodium Chloride ([place] Nasal [place]) 0 ml FILIPPO BID PRN PRN Reason: Nasal Dryness Discontinued Medications Hydrocodone Bitart/Acetaminophen ([place] 325-5 Mg) 1 tab PO Q6H PRN PRN Reason: Pain (moderate 4-6) Hydrocodone Bitart/Acetaminophen ([place] 325-5 Mg) 1 tab PO BID [facility] Furosemide (Lasix) 40 mg IVPUSH ONETIME ONE Stop: 02/28/18 21:31 Last Admin: 02/28/18 21:04 Dose: 40 mg Gabapentin (Neurontin) 300 mg PO BID [facility] Last Admin: 03/02/18 08:00 Dose: 300 mg Gabapentin (Neurontin) 600 mg PO TID [facility] Last Admin: 03/05/18 09:11 Dose: 600 mg Heparin Sodium (Porcine) (Heparin Sodium) 5,000 units SUBCUT Q8H [facility] Last Admin: 03/05/18 03:33 Dose: Not Given Hydromorphone HCl (Dilaudid) 2 mg PO BEDTIME [facility] Last Admin: 03/01/18 20:58 Dose: 2 mg Hydromorphone HCl (Dilaudid) 2 mg IVPUSH ONETIME ONE Stop: 03/02/18 19:03 Last Admin: 03/02/18 20:25 Dose: 1 mg Ceftriaxone Sodium 2 gm/ (Sodium Chloride) 100 mls @ 100 mls/hr IV ONETIME ONE Stop: 02/28/18 11:25 Last Admin: 02/28/18 10:46 Dose: 100 mls/hr Sodium Chloride (Normal Saline) Confirm Administered Dose 500 mls @ as directed .ROUTE .STK-MED ONE Stop: 02/28/18 14:00 Last Admin: 02/28/18 14:10 Dose: Not Given Clindamycin Phosphate 900 mg/ (Sodium Chloride) 106 mls @ 100 mls/hr IV Q6H [facility] Last Admin: 03/01/18 17:09 Dose: 100 mls/hr Sodium Chloride (Normal Saline) Confirm Administered Dose 100 mls @ as directed .ROUTE .STK-MED ONE Stop: 02/28/18 20:50 Last Admin: 02/28/18 21:00 Dose: Not Given Sodium Chloride (Normal Saline) 100 mls @ 100 mls/hr IV ASDIRECTED [facility] Stop: 03/01/18 00:03 Last Admin: 02/28/18 21:14 Dose: 100 mls/hr Levofloxacin/Dextrose 750 mg/ (Premix) 150 mls @ 100 mls/hr IV Q48H [facility] Last Admin: 03/03/18 18:18 Dose: 100 mls/hr Vancomycin HCl 1 gm/Vancomycin HCl 500 mg/ Sodium Chloride 500 mls @ 333.025 mls/hr IV ONETIME ONE Stop: 03/01/18 19:00 Last Admin: 03/01/18 18:20 Dose: 333.025 mls/hr Vancomycin HCl 1 gm/Vancomycin HCl 250 mg/ Sodium Chloride 500 mls @ 333.025 mls/hr IV Q24H [facility] Last Admin: 03/02/18 17:35 Dose: 333.025 mls/hr Cefepime HCl 2 gm/ Premix 50 mls @ 100 mls/hr IV Q12H [facility] Last Admin: 03/05/18 06:42 Dose: 100 mls/hr Sodium Chloride (Normal Saline) 1,000 mls @ 100 mls/hr IV ASDIRECTED [facility] Stop: 03/04/18 23:00 Last Admin: 03/04/18 10:25 Dose: 100 mls/hr Sodium Chloride (Normal Saline) 1,000 mls @ 75 mls/hr IV ASDIRECTED [facility] Stop: 03/06/18 08:00 Last Admin: 03/06/18 02:55 Dose: 75 mls/hr Lorazepam (Ativan) 0.25 mg PO BEDTIME [facility] Last Admin: 03/01/18 20:19 Dose: 0.25 mg Metformin HCl (Glucophage) 1,000 mg PO BID [facility] Last Admin: 03/05/18 09:12 Dose: 1,000 mg Naloxone HCl (Narcan) 2 mg IVPUSH ONETIME ONE Stop: 02/28/18 12:31 Last Admin: 02/28/18 13:30 Dose: 2 mg Quetiapine Fumarate (Seroquel) 250 mg PO DAILY [facility] Last Admin: 03/02/18 22:27 Dose: Not Given Quetiapine Fumarate (Seroquel) 250 mg PO BEDTIME [facility] Last Admin: 03/02/18 20:31 Dose: 250 mg Sodium Polystyrene Sulfonate (Kayexalate) 45 gm PO NOW ONE Stop: 03/05/18 11:30 Last Admin: 03/05/18 12:37 Dose: 45 gm Vancomycin HCl (Pharmacy To Dose - Vancomycin) 0 dose .XX ASDIRECTED PRN PRN Reason: RX TO DOSE VANCO - Exam Quality Assessment: DVT Prophylaxis General: Alert, Oriented HEENT: Pupils Equal, Pupils Reactive, EOMI Neck: Trachea Midline, No JVD Lungs: Normal Respiratory Effort Cardiovascular: Regular Rate, Regular Rhythm GI/Abdominal Exam: Normal Bowel Sounds, Soft, Non-Tender, No Organomegaly, No Distention (Male) Exam: Deferred Back Exam: Normal Inspection Extremities: Normal Capillary Refill Skin: Warm Neurological: No New Focal Deficit Psy/Mental Status: Alert, Normal Affect, Normal Mood - Problem List & Annotations (1) Morbid (severe) obesity due to excess calories SNOMED Code(s): 142746466 Code(s): E66.01 - MORBID (SEVERE) OBESITY DUE TO EXCESS CALORIES Status: Chronic Current Visit: Yes (2) Diabetes mellitus SNOMED Code(s): 28934925 Code(s): E11.9 - TYPE 2 DIABETES MELLITUS WITHOUT COMPLICATIONS Status: Chronic Current Visit: Yes (3) Narcotic overdose SNOMED Code(s): 552287922 Code(s): T40.601A - POISONING BY UNSP NARCOTICS, ACCIDENTAL, INIT Status: Acute Current Visit: Yes (4) Anemia SNOMED Code(s): 884985373 Code(s): D64.9 - ANEMIA, UNSPECIFIED Status: Acute Current Visit: Yes Qualifiers: Anemia type: other cause Other causes of anemia: other cause, not classified Qualified Code(s): D64.89 - Other specified anemias (5) Aspiration pneumonia SNOMED Code(s): 645300589 Code(s): J69.0 - PNEUMONITIS DUE TO INHALATION OF FOOD AND VOMIT Status: Acute Current Visit: Yes Qualifiers: Aspiration pneumonia type: unspecified Laterality: right Lung location: middle lobe of lung Qualified Code(s): J69.0 - Pneumonitis due to inhalation of food and vomit (6) Hypercarbia SNOMED Code(s): 48260517 Code(s): R06.89 - OTHER ABNORMALITIES OF BREATHING Status: Acute Current Visit: Yes (7) Hypoxia SNOMED Code(s): 012747848 Code(s): R09.02 - HYPOXEMIA Status: Acute Current Visit: Yes (8) Renal insufficiency SNOMED Code(s): 237971635, 071024877 Code(s): N28.9 - DISORDER OF KIDNEY AND URETER, UNSPECIFIED Status: Acute Current Visit: Yes - Problem List Review Problem List Initiated/Reviewed/Updated: Yes - My Orders Last 24 Hours: My Active Orders 03/05/18 11:27 Gabapentin [Neurontin] 300 mg PO TID 03/05/18 18:00 levoFLOXacin [Levaquin] 750 mg PO Q48H 03/05/18 19:00 Cefepime [Maxipime in D5W 1 GM/50 ML] 1 gm Premix Bag 1 bag IV Q12H 03/06/18 15:00 BMP [BASIC METABOLIC PANEL,BMP] [CHEM] Routine CBC WITH AUTO DIFF [HEME] Routine CRP [C-REACTIVE PROTEIN] [CHEM] Routine 03/08/18 07:00 CBC W/O DIFF,HEMOGRAM [HEME] MOTH@0700 03/11/18 07:00 CBC W/O DIFF,HEMOGRAM [HEME] MOTH@0700 03/15/18 07:00 CBC W/O DIFF,HEMOGRAM [HEME] MOTH@0700 03/18/18 07:00 CBC W/O DIFF,HEMOGRAM [HEME] MOTH@0700 - Plan Plan:: mpression: Aspiration PNA, query HCAP * WBC 11.62 --> 9.20 --> 8.36 --> 7.15 --> 7.30 --> 6.69 * CRP 21.6 --> 17.7 --> 11.7 --> 8.0 * Chest X-ray on admission showed increased density in the right mid and lower lung. Chest X-ray on 03/02 shows continuing consolidation of the right lung base. Chest X-ray 03/03 shows improvement in the right lung base with minimal parenchymal density remaining. Chest X-ray today shows minimal density in the right lung base, likely due to atelectasis, with no definite acute findings. * Mycoplasma IgM negative * He was started on clindamycin for aspiration pneumonia but switched to levoquin and vancomycin on 03/02. Due to his wound culture growing P.aeruginosa, he is now on levoquin and cefepime. Narcotic overdose, s/p Narcan 3 mg; query iatrogenic * Presented to ER with shortness of breath, hypoxemia, low BP, and vision changes which improved with narcan * Patient has hydrocodone BID at [facility] * Patient frequently requests aid for pain * Patient reports taking his electric wheelchair to the store in [place] to get cigarettes and sweets, question what else he may be getting Acute respiratory distress, resolved * Patient was requiring 3L O2 via nasal cannula on admission, is now on 1L Query JANY * Patient using BIPAP here; does not have at [facility] Morbid obesity Acute/chronic wounds, assessment of R foot re:OM * R foot X-ray does not show definite signs of erosion * PT changed dressing today and nursing will take over * Culture grew Pseudomonoas aeruginosa Anemia, s/p 1 unit PRBCs * Hgb on admission 7.8 --> 10.7 --> 10.4 --> 10.0 --> 10.1 --> 11.0 Acute on chronic kidney failure * Creatinine 1.9 --> 1.7 --> 1.5 --> 1.9 --> 3.0 --> 3.2. BUN ~40 from admission until yesterday when it increased to 50. 54 today. * EGFR 36 --> 40 --> 47 --> 36 --> 21 --> 19 * Initiated IV fluids yesterday. Will continue due to continued elevated creatinine. * Pharmacy reported they will adjust his dose of cefepime Diabetes Clarify mental health (query anxiety/depression/bipolar disorder) * History of alcohol, cannabis, and nicotine dependence * Previous diagnosis of schizoaffective disorder, bipolar disorder, and anxiety * Previously in the [facility]. [facility] reports that he is gruff but manageable and do not want his medications changed. * Dr. Hall was consulted for his assessment Pain in left hip/knee/shoulder * Patient states this is chronic but worse in the last few weeks * Patient reports improvement and will continue with PT Hyperkalemia * Potassium was elevated at 5.2 with this morning's lab draw * Kayexalate 45 gm to be given, minimal results; will repeat. Plan: Med surg with tele Keep O2 sat > 92% IVF as needed Wound care Adjust Insulin for ADA 1800 patricia Accurate I/Os Home meds Daily Labs DVT/GI prophylaxis Consult PT/OT/CM Recommend sleep study to assess for sleep apnea out patient Patient reports desiring an eye exam outpatient. Says his last was over a year ago and he thinks his vision is declining. Follow up with primary care. ATB status: Cefipime day 6/Levoquin day 7; repeat CXR 03/06/18. DC on Levoquinm, start oral dose today Acute on chronic RF-->hydrate, hold nephrotoxins; Kayexelate as mentioned. [place] [facility] [place]
[2018-03-06] MEDS ORDERED: Sodium Chloride 0.9% 1,000 ML IV SCH (19:00)
[2018-03-06] MEDS: QUEtiapine 100 MG Tab PO SCH (21:16)
[2018-03-06] MEDS: Simvastatin 20 MG Tab PO SCH (21:21)
[2018-03-06] MEDS: Citalopram 20 MG Tab PO SCH (21:21)
[2018-03-07] MEDS: Heparin Sodium 5,000 Units/ML Vial SUBCUT SCH (06:34)
[2018-03-07] MEDS ORDERED: Magnesium Hydroxide 400 MG/5 ML Susp 30 ML Cup PO ONE (08:18)
[2018-03-07] MEDS: Insulin Lispro 100 Unit/ML 3 ML KwikPen SUBCUT SCH ×2 (09:15→12:28)
[2018-03-07] MEDS: Insulin Glargine,Human Rec. Analog 100 Units/ML 3 ML Pen SUBCUT SCH (09:15)
[2018-03-07] MEDS: Pregabalin 25 MG Cap PO SCH (09:17)
[2018-03-07] MEDS: DULoxetine 30 MG Cap PO SCH (09:17)
[2018-03-07] MEDS: Gabapentin 300 MG Cap PO SCH (09:18)
[2018-03-07] MEDS: Saccharomyces Boulardii (Probiotic) 250 MG Cap PO SCH (09:18)
[2018-03-07] MEDS: Acetaminophen/HYDROcodone 325-5 MG Tab PO SCH (09:18)
[2018-03-07] MEDS: Clopidogrel 75 MG Tab PO SCH (09:18)
[2018-03-07] MEDS: Aspirin 81 MG Tab.EC PO SCH (09:18)
[2018-03-07] MEDS: Nicotine 14 MG/24 Hr Patch TRDERM SCH (09:23)
[2018-03-07] MEDS: Nystatin Crm 30 GM Tube TOP SCH (09:24)
--- NOTE | 2018-03-07 09:29 | PCM.DCSUM1 ---
Discharge Summary - Hospital Course Free Text/Narrative:: 67 year old male with acute respiratory distress, narcotic overdose and diagnosed with aspiration pneumonia. He was in the ICU over several days before transfer to [place] with telemetry. BiPAP was utilized in the acute setting of hypoxia/hypercapnia. He gradually improved after a change in antibiotics. During his hospitalization osteomyelitis evaluation for wounds on his lower extremities. He grew pseudomonas, two antibiotics were started. Several consultants assessed the patient including but not limited PT for functional status and wound healing. At discharge, Lasix was held, and should be restarted on Thursday, 03/09. The patient developed acute on chronic renal failure during his hospitalization. He was maintained on a strict diet ADA, heart healthy. All home meds that were entered correctly during his hospitalization were continued at [place]. Levoquin 750 mg IV Q 48 H was prescribed at discharge. A prescription for a BMP was also ordered for Thursday, 03/12. The patient was counselled on tobacco cessation, and received a nicotine patch at discharge. It is known by the hospitalist service that he drives his scooter /wheel chair to a nearby gas station for sweets and tobacco. This was strongly discouraged. Post discharge follow up appt should be made with PCP in 1-2 weeks. HPI Initial Comments: 67 year old male who resides at [facility] presents with AMS associated with respiratory distress. He had received Narcan 2 mg in the field. ABG documented hypoxia and hypercapnia in the ED. He did not tolerated BiPAP after the additional dose of Narcan, thus he received at total of 3 mg. The circumstances of the narcotics are unknown, RN notes/medical records will be obtained. He may/may not need a substance abuse evaluation. On CXR, there appears to be a RLL infiltrate, aspiration is a strong consideration. However a respiratory work up will also be pursued. There is a poorly healing wound on his RLE, OM will be check via radiographic studies. He will be admitted to the ICU. Code status, DNR/DNI. Diagnosis: Stroke: No - Discharge Data Discharge Date: 03/07/18 Discharge Disposition: DC/Tfer to [facility] 03 Condition: Good - Discharge Diagnosis/Problem(s) (1) Morbid (severe) obesity due to excess calories SNOMED Code(s): 873046595 ICD Code: E66.01 - MORBID (SEVERE) OBESITY DUE TO EXCESS CALORIES Status: Chronic Current Visit: Yes (2) Diabetes mellitus SNOMED Code(s): 70815332 ICD Code: E11.9 - TYPE 2 DIABETES MELLITUS WITHOUT COMPLICATIONS Status: Chronic Current Visit: Yes (3) Narcotic overdose SNOMED Code(s): 904587510 ICD Code: T40.601A - POISONING BY UNSP NARCOTICS, ACCIDENTAL, INIT Status: Resolved Current Visit: Yes (4) Anemia SNOMED Code(s): 872204607 ICD Code: D64.9 - ANEMIA, UNSPECIFIED Status: Chronic Current Visit: Yes Qualifiers: Anemia type: other cause Other causes of anemia: other cause, not classified Qualified Code(s): D64.89 - Other specified anemias (5) Aspiration pneumonia SNOMED Code(s): 822894305 ICD Code: J69.0 - PNEUMONITIS DUE TO INHALATION OF FOOD AND VOMIT Status: Resolved Current Visit: Yes Qualifiers: Aspiration pneumonia type: unspecified Laterality: right Lung location: middle lobe of lung Qualified Code(s): J69.0 - Pneumonitis due to inhalation of food and vomit (6) Hypercarbia SNOMED Code(s): 40954249 ICD Code: R06.89 - OTHER ABNORMALITIES OF BREATHING Status: Acute Current Visit: Yes (7) Hypoxia SNOMED Code(s): 471498047 ICD Code: R09.02 - HYPOXEMIA Status: Resolved Current Visit: Yes (8) Renal insufficiency SNOMED Code(s): 068156801, 406344039 ICD Code: N28.9 - DISORDER OF KIDNEY AND URETER, UNSPECIFIED Status: Chronic Current Visit: Yes (9) Tobacco dependence due to cigarettes SNOMED Code(s): 07890075407269340 ICD Code: F17.210 - NICOTINE DEPENDENCE, CIGARETTES, UNCOMPLICATED Status: Chronic Current Visit: Yes - Patient Summary/Data Consults: Consultations 03/01/18 09:00 Consult to Physical Therapy [PT Evaluation and Treatment] [CONS] Routine 03/01/18 10:00 Consult to Occupational Therapy [OT Evaluation and Treatment] [CONS] Routine 03/01/18 17:10 Consult to Physician [CONS] Routine 03/02/18 06:20 PT Evaluation and Treatment [CONS] Routine - Patient Instructions Diet: Usual Diet as Tolerated Activity: As Tolerated Driving: Do Not Drive Showering/Bathing: May Shower Notify Provider of: Fever, Increased Pain, Nausea and/or Vomiting - Discharge Plan *PRESCRIPTION DRUG MONITORING PROGRAM REVIEWED*: Not Applicable *COPY OF PRESCRIPTION DRUG MONITORING REPORT IN PATIENT RAMOS: Not Applicable Prescriptions/Med Rec: levoFLOXacin [Levaquin] 750 mg PO Q48H #4 tablet Nicotine [Habitrol] 14 mg TRDERM DAILY #30 patch Saccharomyces Boulardii [Florastor] 500 mg PO DAILY #30 cap Home Medications: Home Meds Acetaminophen [Tylenol] 650 mg PO Q4H PRN 02/28/18 [History] Albuterol Sulfate 1 applic INH Q6H PRN 02/28/18 [History] Albuterol Sulfate [Proair Respiclick] 2 puff INH Q4H PRN 02/28/18 [History] Aspirin [Halfprin] 81 mg PO DAILY 02/28/18 [History] Carboxymethylcellulose/Lytes [Christiano-Stir Oral Del[place]] 1 spray INH Q4H PRN 02/28/18 [History] Citalopram Hydrobromide [Celexa] 20 mg PO BEDTIME 02/28/18 [History] Clopidogrel [Plavix] 75 mg PO DAILY 02/28/18 [History] DULoxetine [Cymbalta] 30 mg PO DAILY 02/28/18 [History] Docusate Sodium 100 mg PO BID PRN 02/28/18 [History] Exenatide Microspheres [Bydureon Pen] 2 mg INJECT TH 02/28/18 [History] Hydrocodone/Acetaminophen [Hydrocodon-Acetaminophen 5-325] 5 - 325 mg PO BID [History] Insulin Detemir [Levemir] 60 units INJECT BID 02/28/18 [History] Insulin Lispro [Humalog] 0 unit INJECT TID 02/28/18 [History] Insulin Lispro [Humalog] 12 units INJECT BEDTIME 02/28/18 [History] Insulin Lispro [Humalog] 34 units INJECT BID 02/28/18 [History] LORazepam [Ativan] 0.25 mg PO BEDTIME 02/28/18 [History] Multivitamin W/Iron, Minerals [Compete] 1 tab PO DAILY 02/28/18 [History] Nystatin 1 applic TOP BID 02/28/18 [History] Pregabalin [Lyrica] 50 mg PO TID 02/28/18 [History] QUEtiapine [SEROquel] 250 mg PO DAILY 02/28/18 [History] atorvaSTATin Calcium [Lipitor] 20 mg PO BEDTIME 02/28/18 [History] hydrOXYzine pamoate [Hydroxyzine Pamoate] 50 mg PO Q4H PRN 02/28/18 [History] metFORMIN [Glucophage XR] 1,000 mg PO BID 02/28/18 [History] Furosemide [Lasix] 40 mg PO DAILY #0 03/07/18 [Rx] Nicotine [Habitrol] 14 mg TRDERM DAILY #30 patch 03/07/18 [Rx] Saccharomyces Boulardii [Florastor] 500 mg PO DAILY #30 cap 03/07/18 [Rx] levoFLOXacin [Levaquin] 750 mg PO Q48H #4 tablet 03/07/18 [Rx] Other Amb Orders: BASIC METABOLIC PANEL,BMP [CHEM] Time Frame: 03/12/18, Location: None Selected Patient Handouts: Diabetes Mellitus and Skin Care, BMI for Adults, Drug Overdose, Pneumonitis, Community-Acquired Pneumonia, Adult, [id number] Referrals: Adam Erickson MD [Physician] - (Please call and schedule a post-hospital follow -up appointment with patient's primary care doctor, Dr. Erickson, within 2 weeks of discharge. Thank you!) - Discharge Summary/Plan Comment DC Time >30 min.: No Discharge Summary/Plan Comment: Impression: Aspiration PNA, query HCAP * WBC 11.62 --> 9.20 --> 8.36 --> 7.15 --> 7.30 --> 6.69 * CRP 21.6 --> 17.7 --> 11.7 --> 8.0 * Chest X-ray on admission showed increased density in the right mid and lower lung. Chest X-ray on 03/02 shows continuing consolidation of the right lung base. Chest X-ray 03/03 shows improvement in the right lung base with minimal parenchymal density remaining. Chest X-ray today shows minimal density in the right lung base, likely due to atelectasis, with no definite acute findings. * Mycoplasma IgM negative * He was started on clindamycin for aspiration pneumonia but switched to levoquin and vancomycin on 03/02. Due to his wound culture growing P.aeruginosa, he is now on levoquin and cefepime. Narcotic overdose, s/p Narcan 3 mg; query iatrogenic * Presented to ER with shortness of breath, hypoxemia, low BP, and vision changes which improved with narcan * Patient has hydrocodone BID at [facility] * Patient frequently requests aid for pain * Patient reports taking his electric wheelchair to the store in [place] to get cigarettes and sweets, question what else he may be getting Acute respiratory distress, resolved * Patient was requiring 3L O2 via nasal cannula on admission, is now on 1L Query JANY * Patient using BIPAP here; does not have at [facility] Morbid obesity Acute/chronic wounds, assessment of R foot re:OM * R foot X-ray does not show definite signs of erosion * PT changed dressing today and nursing will take over * Culture grew Pseudomonoas aeruginosa Anemia, s/p 1 unit PRBCs * Hgb on admission 7.8 --> 10.7 --> 10.4 --> 10.0 --> 10.1 --> 11.0 Acute on chronic kidney failure * Creatinine 1.9 --> 1.7 --> 1.5 --> 1.9 --> 3.0 --> 3.2. BUN ~40 from admission until yesterday when it increased to 50. 54 today. * EGFR 36 --> 40 --> 47 --> 36 --> 21 --> 19 * Initiated IV fluids yesterday. Will continue due to continued elevated creatinine. * Pharmacy reported they will adjust his dose of cefepime Diabetes-->on home medication regimen Clarify mental health (query anxiety/depression/bipolar disorder) * History of alcohol, cannabis, and nicotine dependence * Previous diagnosis of schizoaffective disorder, bipolar disorder, and anxiety * Previously in the [facility]. [facility] reports that he is gruff but manageable and do not want his medications changed. * Dr. Hall was consulted for his assessment Pain in left hip/knee/shoulder * Patient states this is chronic but worse in the last few weeks * Patient reports improvement and will continue with PT Hyperkalemia * Potassium was elevated at 5.2 with this morning's lab draw * Kayexalate 45 gm to be given, minimal results; will repeat. Plan: Med surg with tele Keep O2 sat > 92% IVF as needed Wound care Adjust Insulin for ADA 1800 patricia Accurate I/Os Home meds Daily Labs DVT/GI prophylaxis Consult PT/OT/CM Outpatient Evaluation Recommend sleep study to assess for sleep apnea out patient Patient reports desiring an eye exam outpatient. Says his last was over a year ago and he thinks his vision is declining. Follow up with primary care. - General Info Date of Service: 02/28/18 Functional Status: Reports: Pain Controlled, Tolerating Diet, Urinating - Review of Systems General: Reports: No Symptoms HEENT: Reports: No Symptoms Pulmonary: Reports: No Symptoms Cardiovascular: Reports: No Symptoms Gastrointestinal: Reports: No Symptoms Genitourinary: Reports: No Symptoms Musculoskeletal: Reports: No Symptoms Skin: Reports: No Symptoms Neurological: Reports: No Symptoms Psychiatric: Reports: No Symptoms - Patient Data Vitals - Most Recent: Last Vital Signs Temp 36.7 C 03/07/18 09:06 Pulse 89 03/07/18 09:06 Resp 18 03/07/18 09:06 BP 182/89 H 03/07/18 09:06 Pulse Ox 92 L 03/07/18 09:06 Weight - Most Recent: 138.572 kg I&O - Last 24 hours: Intake & Output 03/06/18 03/07/18 03/07/18 22:59 06:59 14:59 Intake Total 950 587 Balance 950 587 Lab Results - Last 24 hrs: Laboratory Results - last 24 hr 03/06/18 03/06/18 03/06/18 Range/Units 11:47 14:55 14:55 WBC 9.12 H (4.23-9.07) K/mm3 RBC 4.27 L (4.63-6.08) M/mm3 Hgb 11.8 L (13.7-17.5) gm/L Hct 39.3 L (40.1-51.0) % MCV 92.0 (79.0-92.2) fl MCH 27.6 (25.7-32.2) pg MCHC 30.0 L (32.2-35.5) g/dl RDW Std Deviation 54.1 H (35.1-43.9) fL Plt Count 275 (163-337) K/mm3 MPV 10.3 (9.4-12.3) fl Neut % (Auto) 79.0 H (34.0-67.9) % Lymph % (Auto) 8.2 L (21.8-53.1) % Carlton % (Auto) 9.3 (5.3-12.2) % Eos % (Auto) 2.9 (0.8-7.0) Baso % (Auto) 0.2 (0.1-1.2) % Neut # (Auto) 7.20 H (1.78-5.38) K/mm3 Lymph # (Auto) 0.75 L (1.32-3.57) K/mm3 Carlton # (Auto) 0.85 H (0.30-0.82) K/mm3 Eos # (Auto) 0.26 (0.04-0.54) K/mm3 Baso # (Auto) 0.02 (0.01-0.08) K/mm3 Manual Slide Review Normal smear Sodium 137 (136-145) mEq/L Potassium 4.8 (3.5-5.1) mEq/L Chloride 104 (98-107) mEq/L Carbon Dioxide 24 (21-32) mEq/L Anion Gap 13.8 (5-15) BUN 44 H (7-18) mg/dL Creatinine 2.2 H (0.7-1.3) mg/dL Est Cr Clr Drug Dosing 23.04 mL/min Estimated GFR (MDRD) 30 (>60) mL/min BUN/Creatinine Ratio 20.0 H (14-18) Glucose 130 H (80-115) mg/dL POC Glucose 102 (80-115) mg/dL Calcium 8.9 (8.5-10.1) mg/dL C-Reactive Protein 3.0 H* (<1.0) mg/dL 03/06/18 03/06/18 03/07/18 Range/Units 15:44 21:01 06:38 WBC (4.23-9.07) K/mm3 RBC (4.63-6.08) M/mm3 Hgb (13.7-17.5) gm/L Hct (40.1-51.0) % MCV (79.0-92.2) fl MCH (25.7-32.2) pg MCHC (32.2-35.5) g/dl RDW Std Deviation (35.1-43.9) fL Plt Count (163-337) K/mm3 MPV (9.4-12.3) fl Neut % (Auto) (34.0-67.9) % Lymph % (Auto) (21.8-53.1) % Carlton % (Auto) (5.3-12.2) % Eos % (Auto) (0.8-7.0) Baso % (Auto) (0.1-1.2) % Neut # (Auto) (1.78-5.38) K/mm3 Lymph # (Auto) (1.32-3.57) K/mm3 Carlton # (Auto) (0.30-0.82) K/mm3 Eos # (Auto) (0.04-0.54) K/mm3 Baso # (Auto) (0.01-0.08) K/mm3 Manual Slide Review Sodium (136-145) mEq/L Potassium (3.5-5.1) mEq/L Chloride (98-107) mEq/L Carbon Dioxide (21-32) mEq/L Anion Gap (5-15) BUN (7-18) mg/dL Creatinine (0.7-1.3) mg/dL Est Cr Clr Drug Dosing mL/min Estimated GFR (MDRD) (>60) mL/min BUN/Creatinine Ratio (14-18) Glucose (80-115) mg/dL POC Glucose 148 H 145 H 119 H (80-115) mg/dL Calcium (8.5-10.1) mg/dL C-Reactive Protein (<1.0) mg/dL 03/07/18 Range/Units 08:35 WBC 9.29 H (4.23-9.07) K/mm3 RBC 4.05 L (4.63-6.08) M/mm3 Hgb 11.1 L (13.7-17.5) gm/L Hct 37.3 L (40.1-51.0) % MCV 92.1 (79.0-92.2) fl MCH 27.4 (25.7-32.2) pg MCHC 29.8 L (32.2-35.5) g/dl RDW Std Deviation 53.0 H (35.1-43.9) fL Plt Count 250 (163-337) K/mm3 MPV 10.7 (9.4-12.3) fl Neut % (Auto) (34.0-67.9) % Lymph % (Auto) (21.8-53.1) % Carlton % (Auto) (5.3-12.2) % Eos % (Auto) (0.8-7.0) Baso % (Auto) (0.1-1.2) % Neut # (Auto) (1.78-5.38) K/mm3 Lymph # (Auto) (1.32-3.57) K/mm3 Carlton # (Auto) (0.30-0.82) K/mm3 Eos # (Auto) (0.04-0.54) K/mm3 Baso # (Auto) (0.01-0.08) K/mm3 Manual Slide Review Sodium (136-145) mEq/L Potassium (3.5-5.1) mEq/L Chloride (98-107) mEq/L Carbon Dioxide (21-32) mEq/L Anion Gap (5-15) BUN (7-18) mg/dL Creatinine (0.7-1.3) mg/dL Est Cr Clr Drug Dosing mL/min Estimated GFR (MDRD) (>60) mL/min BUN/Creatinine Ratio (14-18) Glucose (80-115) mg/dL POC Glucose (80-115) mg/dL Calcium (8.5-10.1) mg/dL C-Reactive Protein (<1.0) mg/dL RACHEAL Results - Last 24 hrs: Microbiology 02/28/18 11:14 Aerobic Blood Culture - Preliminary Blood - Venous NO GROWTH AFTER 6 DAYS Anaerobic Blood Culture - Preliminary NO GROWTH AFTER 6 DAYS 02/28/18 11:06 Aerobic Blood Culture - Preliminary Blood - Venous - Lab Draw NO GROWTH AFTER 6 DAYS Anaerobic Blood Culture - Preliminary NO GROWTH AFTER 6 DAYS Med Orders - Current: Current Medications Acetaminophen (Tylenol) 650 mg PO Q4H PRN PRN Reason: Pain/Fever Last Admin: 03/05/18 04:06 Dose: 650 mg Hydrocodone Bitart/Acetaminophen ([employer] 325-5 Mg) 1 tab PO BID [facility] Last Admin: 03/06/18 21:19 Dose: 1 tab Aspirin (Halfprin) 81 mg PO DAILY [facility] Last Admin: 03/06/18 09:28 Dose: 81 mg Citalopram Hydrobromide (Celexa) 20 mg PO BEDTIME [facility] Last Admin: 03/06/18 21:21 Dose: 20 mg Clopidogrel Bisulfate (Plavix) 75 mg PO DAILY [facility] Last Admin: 03/06/18 09:29 Dose: 75 mg Dextrose/Water (Dextrose 50% In Water) 50 ml IVPUSH ASDIRECTED PRN PRN Reason: Hypoglycemia Docusate Sodium (Colace) 100 mg PO BID PRN PRN Reason: Constipation Last Admin: 03/07/18 06:34 Dose: 100 mg Duloxetine HCl (Cymbalta) 30 mg PO DAILY [facility] Last Admin: 03/06/18 09:30 Dose: 30 mg Gabapentin (Neurontin) 300 mg PO TID [facility] Last Admin: 03/06/18 21:18 Dose: 300 mg Heparin Sodium (Porcine) (Heparin Sodium) 5,000 units SUBCUT Q8H [facility] Last Admin: 03/07/18 06:34 Dose: 5,000 units Hydralazine HCl (Apresoline) 20 mg IVPUSH Q6H PRN PRN Reason: Hypertension Last Admin: 03/05/18 22:53 Dose: 20 mg Sodium Chloride (Normal Saline) 1,000 mls @ 75 mls/hr IV ASDIRECTED [facility] Last Admin: 03/07/18 00:22 Dose: 75 mls/hr Insulin Glargine (Lantus Solostar) 15 units SUBCUT BID [facility] Last Admin: 03/06/18 21:12 Dose: 15 units Insulin Human Lispro (Humalog) 0 unit SUBCUT QIDACANDBED [facility]; Protocol Last Admin: 03/06/18 21:27 Dose: Not Given Levofloxacin (Levaquin) 750 mg PO Q48H [facility] Last Admin: 03/05/18 18:55 Dose: 750 mg Miscellaneous Information (Remove Patch) 0 ea TRDERM DAILY [facility] Last Admin: 03/06/18 09:32 Dose: 1 ea Nicotine (Habitrol) 14 mg TRDERM DAILY [facility] Last Admin: 03/06/18 09:30 Dose: 14 mg Nystatin (Nystatin Crm) 0 gm TOP BID [facility] Last Admin: 03/06/18 21:18 Dose: 1 applic Pregabalin (Lyrica) 50 mg PO TID [facility] Last Admin: 03/06/18 21:16 Dose: 50 mg Quetiapine Fumarate (Seroquel) 350 mg PO BEDTIME [facility] Last Admin: 03/06/18 21:16 Dose: 350 mg Saccharomyces Boulardii (Florastor) 500 mg PO DAILY [facility] Last Admin: 03/06/18 09:28 Dose: 500 mg Simvastatin (Zocor) 20 mg PO BEDTIME [facility] Last Admin: 03/06/18 21:21 Dose: 20 mg Sodium Chloride (Saline Flush) 10 ml FLUSH ASDIRECTED PRN PRN Reason: Keep Vein Open Last Admin: 02/28/18 10:45 Dose: 10 ml Sodium Chloride ([place] Nasal Delano) 0 ml FILIPPO BID PRN PRN Reason: Nasal Dryness Discontinued Medications Hydrocodone Bitart/Acetaminophen ([employer] 325-5 Mg) 1 tab PO Q6H PRN PRN Reason: Pain (moderate 4-6) Hydrocodone Bitart/Acetaminophen ([employer] 325-5 Mg) 1 tab PO BID [facility] Furosemide (Lasix) 40 mg IVPUSH ONETIME ONE Stop: 02/28/18 21:31 Last Admin: 02/28/18 21:04 Dose: 40 mg Gabapentin (Neurontin) 300 mg PO BID [facility] Last Admin: 03/02/18 08:00 Dose: 300 mg Gabapentin (Neurontin) 600 mg PO TID [facility] Last Admin: 03/05/18 09:11 Dose: 600 mg Heparin Sodium (Porcine) (Heparin Sodium) 5,000 units SUBCUT Q8H [facility] Last Admin: 03/05/18 03:33 Dose: Not Given Hydromorphone HCl (Dilaudid) 2 mg PO BEDTIME [facility] Last Admin: 03/01/18 20:58 Dose: 2 mg Hydromorphone HCl (Dilaudid) 2 mg IVPUSH ONETIME ONE Stop: 03/02/18 19:03 Last Admin: 03/02/18 20:25 Dose: 1 mg Ceftriaxone Sodium 2 gm/ (Sodium Chloride) 100 mls @ 100 mls/hr IV ONETIME ONE Stop: 02/28/18 11:25 Last Admin: 02/28/18 10:46 Dose: 100 mls/hr Sodium Chloride (Normal Saline) Confirm Administered Dose 500 mls @ as directed .ROUTE .STK-MED ONE Stop: 02/28/18 14:00 Last Admin: 02/28/18 14:10 Dose: Not Given Clindamycin Phosphate 900 mg/ (Sodium Chloride) 106 mls @ 100 mls/hr IV Q6H [facility] Last Admin: 03/01/18 17:09 Dose: 100 mls/hr Sodium Chloride (Normal Saline) Confirm Administered Dose 100 mls @ as directed .ROUTE .STK-MED ONE Stop: 02/28/18 20:50 Last Admin: 02/28/18 21:00 Dose: Not Given Sodium Chloride (Normal Saline) 100 mls @ 100 mls/hr IV ASDIRECTED [facility] Stop: 03/01/18 00:03 Last Admin: 02/28/18 21:14 Dose: 100 mls/hr Levofloxacin/Dextrose 750 mg/ (Premix) 150 mls @ 100 mls/hr IV Q48H [facility] Last Admin: 03/03/18 18:18 Dose: 100 mls/hr Vancomycin HCl 1 gm/Vancomycin HCl 500 mg/ Sodium Chloride 500 mls @ 333.025 mls/hr IV ONETIME ONE Stop: 03/01/18 19:00 Last Admin: 03/01/18 18:20 Dose: 333.025 mls/hr Vancomycin HCl 1 gm/Vancomycin HCl 250 mg/ Sodium Chloride 500 mls @ 333.025 mls/hr IV Q24H [facility] Last Admin: 03/02/18 17:35 Dose: 333.025 mls/hr Cefepime HCl 2 gm/ Premix 50 mls @ 100 mls/hr IV Q12H [facility] Last Admin: 03/05/18 06:42 Dose: 100 mls/hr Sodium Chloride (Normal Saline) 1,000 mls @ 100 mls/hr IV ASDIRECTED [facility] Stop: 03/04/18 23:00 Last Admin: 03/04/18 10:25 Dose: 100 mls/hr Sodium Chloride (Normal Saline) 1,000 mls @ 75 mls/hr IV ASDIRECTED [facility] Stop: 03/06/18 08:00 Last Admin: 03/06/18 02:55 Dose: 75 mls/hr Cefepime HCl 1 gm/ Premix 50 mls @ 100 mls/hr IV Q12H [facility] Stop: 03/06/18 21:00 Last Admin: 03/06/18 18:19 Dose: 100 mls/hr Lorazepam (Ativan) 0.25 mg PO BEDTIME [facility] Last Admin: 03/01/18 20:19 Dose: 0.25 mg Magnesium Hydroxide (Milk Of Magnesia) 30 ml PO ONETIME ONE Stop: 03/07/18 08:19 Metformin HCl (Glucophage) 1,000 mg PO BID [facility] Last Admin: 03/05/18 09:12 Dose: 1,000 mg Naloxone HCl (Narcan) 2 mg IVPUSH ONETIME ONE Stop: 02/28/18 12:31 Last Admin: 02/28/18 13:30 Dose: 2 mg Quetiapine Fumarate (Seroquel) 250 mg PO DAILY [facility] Last Admin: 03/02/18 22:27 Dose: Not Given Quetiapine Fumarate (Seroquel) 250 mg PO BEDTIME [facility] Last Admin: 03/02/18 20:31 Dose: 250 mg Sodium Polystyrene Sulfonate (Kayexalate) 45 gm PO NOW ONE Stop: 03/05/18 11:30 Last Admin: 03/05/18 12:37 Dose: 45 gm Vancomycin HCl (Pharmacy To Dose - Vancomycin) 0 dose .XX ASDIRECTED PRN PRN Reason: RX TO DOSE VANCO - Exam Quality Assessment: Reports: DVT Prophylaxis General: Reports: Alert, Oriented, Cooperative, No Acute Distress HEENT: Reports: Pupils Equal, Pupils Reactive, EOMI Neck: Reports: Trachea Midline, No JVD Lungs: Reports: Normal Respiratory Effort Cardiovascular: Reports: Regular Rate, Regular Rhythm GI/Abdominal Exam: Normal Bowel Sounds, Soft, Non-Tender, No Organomegaly, No Distention (Male) Exam: Deferred Rectal (Males) Exam: Deferred Back Exam: Reports: Normal Inspection Extremities: Normal Inspection, Normal Capillary Refill Skin: Reports: Warm Neurological: Reports: No New Focal Deficit, Normal Speech Psy/Mental Status: Reports: Alert, Normal Affect, Normal Mood
--- NOTE | 2018-03-07 17:03 | CR ---
Chest: Two views of the chest were obtained. Comparison: Prior chest x-ray of 03/05/18. Heart is slightly enlarged. Pulmonary vessels show minimal congestion. Slight haziness within the right lateral costophrenic angle is seen possibly due to minimal pleural effusion. Bony structures are grossly intact. Impression: 1. Slight cardiomegaly and minimal pulmonary vascular congestion as well as possible very small right sided pleural effusion. Diagnostic code #3 I agree with preliminary report issued by [facility] ([facility] report finalized on 02/25/90 18, 3:58 PM Central Time)
== END 2018-03-07 11:35 | DRG 917 ==
LOC: JD.ED 09:56 → SUPCPDRO 09:56 → JD.ICU 13:58 → UNDOADMIN 14:00 → JD.ICU 15:09 → JD.MS 03-02 09:39
PROVIDERS: ADMIT Internal Medicine Cardiovascular Disease; ATTEND Internal Medicine Cardiovascular Disease
PROC: 039Y3ZZ Drainage of Upper Artery, Percutaneous Approach (ICD-10-PCS; principal; 2018-02-28)
PROC: 5A09357 Assistance with Respiratory Ventilation, Less than 24 Consecutive Hours, Continuous Positive Airway Pressure (ICD-10-PCS; 2018-02-28)
PROC: 30233N1 Transfusion of Nonautologous Red Blood Cells into Peripheral Vein, Percutaneous Approach (ICD-10-PCS; 2018-02-28)
DX: T40.601A Poisoning by unspecified narcotics, accidental (unintentional), initial encounter (principal); J69.0 Pneumonitis due to inhalation of food and vomit; L97.919 Non-pressure chronic ulcer of unspecified part of right lower leg with unspecified severity; N28.9 Disorder of kidney and ureter, unspecified; N17.9 Acute kidney failure, unspecified; L97.419 Non-pressure chronic ulcer of right heel and midfoot with unspecified severity; Z68.44 Body mass index [BMI] 60.0-69.9, adult; R09.02 Hypoxemia; R06.89 Other abnormalities of breathing; R05 Cough; H53.8 Other visual disturbances; R06.02 Shortness of breath; B96.5 Pseudomonas (aeruginosa) (mallei) (pseudomallei) as the cause of diseases classified elsewhere; D64.9 Anemia, unspecified; R06.03 Acute respiratory distress; H54.7 Unspecified visual loss; I25.10 Atherosclerotic heart disease of native coronary artery without angina pectoris; E78.00 Pure hypercholesterolemia, unspecified; J44.9 Chronic obstructive pulmonary disease, unspecified; K59.09 Other constipation; K21.9 Gastro-esophageal reflux disease without esophagitis; N40.0 Benign prostatic hyperplasia without lower urinary tract symptoms; M19.90 Unspecified osteoarthritis, unspecified site; E11.42 Type 2 diabetes mellitus with diabetic polyneuropathy; E11.622 Type 2 diabetes mellitus with other skin ulcer; E66.01 Morbid (severe) obesity due to excess calories; E11.621 Type 2 diabetes mellitus with foot ulcer; E11.22 Type 2 diabetes mellitus with diabetic chronic kidney disease; I12.9 Hypertensive chronic kidney disease with stage 1 through stage 4 chronic kidney disease, or unspecified chronic kidney disease; N18.9 Chronic kidney disease, unspecified; F17.210 Nicotine dependence, cigarettes, uncomplicated; F25.9 Schizoaffective disorder, unspecified; F31.9 Bipolar disorder, unspecified; F41.9 Anxiety disorder, unspecified; G89.29 Other chronic pain; M25.552 Pain in left hip; M25.562 Pain in left knee; M25.512 Pain in left shoulder; E87.5 Hyperkalemia; Z88.8 Allergy status to other drugs, medicaments and biological substances; Z79.82 Long term (current) use of aspirin; Z79.4 Long term (current) use of insulin; Z91.11 Patient's noncompliance with dietary regimen; Z86.73 Personal history of transient ischemic attack (TIA), and cerebral infarction without residual deficits; Z86.14 Personal history of Methicillin resistant Staphylococcus aureus infection; Z79.899 Other long term (current) drug therapy; Z66 Do not resuscitate
CPT/HCPCS: 36415; 36600; 71045; 80053; 82803; 83880; 85025; 86850; 86900; 86901; 86922 ×2; 87040 ×2; 94660; 96365; 96375; 99285; J0696; J2310; J7030; J7050; 36430; 71046; 71046-26; 73090-26-LT; 73090-LT; 73630-26-RT; 73630-RT; 80048; 80061; 82565; 82962; 83036; 83605; 83735; 85027; 86140; 86738; 87070; 87077; 87186; 94760; 94761; 97110-GP; 97161-GP; 97162-GP; 97165-GO; 97167-GO; 97530-GP; 97597-GP; A9270-GY; J0360; J0692; J1170; J1644; J1815; J1815-GY; J1940; J1956; J3370; J3490; J7040; P9016